=== PATIENT | female | born 1935 | race Caucasian/White ===

== ENCOUNTER 2016-12-11 16:12 | Inpatient (IN) | payer MEDICAID, MEDICARE ==
[2016-12-11 17:49] LABS: % BASOPHILS 0.6 % (0.0-2.0); % EOSINOPHILS 1.5 % (0.0-5.0); % LYMPHOCYTES 14.9 % (20.0-50.0); % MONOCYTES 9.5 % (2.0-10.0); % NEUTROPHILS 73.5 % (40.0-80.0); HEMATOCRIT 35.4 % (35.0-45.0); MEAN CELL VOLUME 91.6 fl (81-100); MEAN CORPUSCULAR HEMOGLOBIN 30.9 pg (27.0-31.0); MEAN CORPUSCULAR HGB CONC 33.8 pg (28.0-36.0); MEAN PLATELET VOLUME 6.9 fl; NEUTROPHILE ABSOLUTE 5.1 Th/cmm (1.8-8.0); PLATELET COUNT 288 Th/cmm (150-400); RED BLOOD COUNT 3.86 Mil/cmm (3.80-5.20); WHITE BLOOD COUNT 6.8 Th/cmm (4.8-10.8)
[2016-12-11 17:59] LABS: INR 1.03 (0.5-1.4); PROTHROMBIN TIME (TEST) 10.7 SECONDS (9.5-11.5)
[2016-12-11 18:05] LABS: ALKALINE PHOSPHATASE 118 U/L (34-104); ANION GAP 6.9 (7.0-16.0); BILIRUBIN,TOTAL 0.3 mg/dL (0.3-1.0); BUN - UREA NITROGEN 14 mg/dL (7-25); CALCIUM SERUM 8.8 mg/dL (8.6-10.3); CHLORIDE 104 mEq/L (98-107); CHOLESTEROL 109 mg/dL (<200); CREATININE - SERUM 0.4 mg/dL (0.6-1.2); GLUCOSE 102 mg/dL (70-105); POTASSIUM SERUM 3.9 mEq/L (3.5-5.1); SGOT 13 U/L (13-39); SGPT/ALT 9 U/L (7-52); SODIUM SERUM 133 mEq/L (136-145); TRIGLYCERIDES 80 mg/dL (<150)
[2016-12-11 18:17] LABS: URINE BILIRUBIN NEGATIVE (NEGATIVE); URINE BLOOD TRACE (NEGATIVE); URINE GLUCOSE (UA) NEGATIVE (NEGATIVE); URINE KETONE NEGATIVE (NEGATIVE); URINE PH 8.5 (4.6 - 8.0); URINE PROTEIN NEGATIVE (NEGATIVE); URINE UROBILINOGEN 0.2 E.U./dL (0.2 - 1.0)
[2016-12-11 18:21] LABS: URINE COLOR YELLOW
[2016-12-11 18:22] LABS: URINE BACTERIA 1+ /hpf (NONE SEEN); URINE EPITHELIAL CELLS FEW /lpf (FEW); URINE RBC 0-2 /hpf (0-5)
--- NOTE | 2016-12-11 18:39 | ED Physician Chart ---
Chief Complaint/HPI - Patient Information Date Seen:: 12/11/16 Time Seen:: 16:40 Chief Complaint:: INFECTED ROSEY CATH History of Present Illness:: THIS IS A THIN CHRONICALLY ILL 81 YO FECAL WITH CANCER WAS SENT HERE EVALUATION AND TREATMENT OF AN INFECTED PORTACATH. Allergies:: Allergies Allergy/AdvReac Type Severity Reaction Status Date / Time No Known Allergies Allergy Verified 12/11/16 17:46 Vitals:: Vital Signs - 8 hr 12/11/16 12/11/16 16:29 18:00 Temp 98.9 F HR 95 88 RR 21 16 BP 101/67 114/72 O2 Sat % 99 95 Historian:: Patient, Medical Records Review:: Nurse's Note Reviewed Review of Systems - Review of Systems General/Constitutional: No fever, No chills, No weight loss, No weakness, No diaphoresis, No edema, No loss of appetite Skin: Skin lesions (RIGHT CHEST WALL SKIN IN FECTION AROUND THE ROESY CATH), No rash, No bruising Head: No headache, No light-headedness Eyes: No loss of vision, No pain, No diplopia ENT: No earache, No nasal drainage, No sore throat, No tinnitus Neck: No neck pain, No swelling, No thyromegaly, No stiffness, No mass noted Cardio Vascular: No chest pain, No palpitations, No PND, No orthopnea, No edema Pulmonary: No SOB, No cough, No sputum, No wheezing GI: No nausea, No vomiting, No diarrhea, No pain, No melena, No hematochezia, No constipation, No hematemesis G/U: No dysuria, No frequency, No hematuria Musculoskeletal: No bone or joint pain, No back pain, No muscle pain Endocrine: No polyuria, No polydipsia Psychiatric: No prior psych history, No depression, No anxiety, No suicidal ideation Hematopoietic: No bruising, No lymphadenopathy Allergic/Immuno: No urticaria, No angioedema Neurological: No syncope, No focal symptoms, No weakness, No paresthesia, No headache, No seizure, No dizziness, No confusion, No vertigo Past Medical History - Past Medical History Obtainable: Yes Past Medical History: HTN, Arthritis, Other (CANCER OF THE RECTAL AREA) Family History: None Social History: Non Smoker, No Alcohol, No Drug Use Surgical History: None Family Medical History - Family Member mother History Unknown: Yes Physical Exam - Physical Examination General/Constitutional: Awake, Well-developed, well-nourished, Alert, No distress, GCS 15, Non-toxic appearing, Ambulatory Head: Atraumatic Eyes: Lids, conjuctiva normal, PERRL, EOMI Skin: No rash, No ecchymosis, Well hydrated, No lymphadenopathy Other Skin comments:: THERE IS PUS COMING OUT FROM AROUND THE PORTACATH SITE ON THE RIGHT SIDE OF THE CHEST WALL ENMT: External ears, nose nl, Nasal exam nl, Lips, teeth, gums nl Neck: Nontender, Full ROM w/o pain, No JVD, No nuchal rigidity, No bruit, No mass, No stridor Respiratory: Nl effort/Exclusion, Clear to Auscultation, No Wheeze/Rhonchi/Rales Cardio Vascular: RRR, No murmur, gallop, rubs, NL S1 S2 GI: No tenderness/rebounding/guarding, No organomegaly, No hernia, Normal BS's, Nondistended, No mass/bruits, No McBurney tenderness : No CVA tenderness Extremities: No tenderness or effusion, Full ROM, normal strength in all extremities, No edema, Normal digits & nails Neuro/Psych: Alert/oriented, DTR's symmetric, Normal sensory exam, Normal motor strength, Judgement/insight normal, Mood normal, Normal gait, No focal deficits Misc: normal gait, Normal back, No paraspinal tenderness Labs/Radiology/EKG Results - Lab Results Results: Laboratory Tests 12/11/16 12/11/16 12/11/16 17:37 17:37 17:37 WBC 6.8 RBC 3.86 Hgb 12.0 Hct 35.4 MCV 91.6 MCH 30.9 MCHC Differential 33.8 RDW 16.0 Plt Count 288 MPV 6.9 Neutrophils % 73.5 Lymphocytes % 14.9 L Monocytes % 9.5 Eosinophils % 1.5 Basophils % 0.6 PT 10.7 INR 1.03 PTT (Actin FS) 28.3 Sodium Potassium Chloride Carbon Dioxide Anion Gap BUN Creatinine Est GFR ( Amer) Est GFR (Non-Af Amer) BUN/Creatinine Ratio Glucose Calcium Total Bilirubin AST ALT Alkaline Phosphatase Troponin I Total Protein Albumin Globulin Albumin/Globulin Ratio Triglycerides 80 Cholesterol 109 LDL Cholesterol Direct 42 L HDL Cholesterol 55 Urine Source Urine Color Urine Clarity Urine pH Ur Specific [place] Urine Protein Urine Glucose (UA) Urine Ketones Urine Blood Urine Nitrate Urine Bilirubin Urine Urobilinogen Ur Leukocyte Esterase Urine RBC Urine WBC Ur Epithelial Cells Urine Bacteria 12/11/16 12/11/16 12/11/16 17:37 17:37 18:05 WBC RBC Hgb Hct MCV MCH MCHC Differential RDW Plt Count MPV Neutrophils % Lymphocytes % Monocytes % Eosinophils % Basophils % PT INR PTT (Actin FS) Sodium 133 L Potassium 3.9 Chloride 104 Carbon Dioxide 26.0 Anion Gap 6.9 L BUN 14 Creatinine 0.4 L Est GFR ( Amer) TNP Est GFR (Non-Af Amer) TNP BUN/Creatinine Ratio 35.0 Glucose 102 Calcium 8.8 Total Bilirubin 0.3 AST 13 ALT 9 Alkaline Phosphatase 118 H Troponin I < 0.01 L Total Protein 5.1 L Albumin 2.6 L Globulin 2.5 Albumin/Globulin Ratio 1.0 Triglycerides Cholesterol LDL Cholesterol Direct HDL Cholesterol Urine Source CLEAN C Urine Color YELLOW Urine Clarity SLIGHT CLOUDY Urine pH 8.5 Ur Specific [place] 1.015 Urine Protein NEGATIVE Urine Glucose (UA) NEGATIVE Urine Ketones NEGATIVE Urine Blood TRACE Urine Nitrate NEGATIVE Urine Bilirubin NEGATIVE Urine Urobilinogen 0.2 Ur Leukocyte Esterase LARGE H Urine RBC 0-2 Urine WBC 10-25 H Ur Epithelial Cells FEW Urine Bacteria 1+ H Assessment - Assessment General Assessment: INFECTED ROSEY CATH URINARY TRACT INFECTION ED Septic Shock - . Is Septic Shock (SBP<90, OR Lactate>4 mmol\L) present?: No - <6hrs of presentation: Vital Signs: Vital Signs - 8 hr 12/11/16 12/11/16 16:29 18:00 Temp 98.9 F HR 95 88 RR 21 16 BP 101/67 114/72 O2 Sat % 99 95 Reassessment (Disposition) - Diagnosis Diagnosis:: INFECTION OF PORTACATH URINARY TRACT INFECTION CANCER OF THE RECTUM - Patient Disposition Discharge/Transfer:: Acute Care w/in this hosp Admitting Medical Physician:: Suzie Choudhury Condition at Disposition:: Stable ED Discharge Plan - Patient Disposition Admit/Discharge/Transfer: Home Health IV Service Condition at Disposition: Improved
[2016-12-11] MEDS ORDERED: Non-Formulary Item 1 EA (Amino Acids/Protein Hydrolys [Pro-Stat Sugar Free Liquid] 30 ML) PO SCH (21:43)
[2016-12-11] MEDS ORDERED: Piperacillin Sodium/Tazobact 3.375 gm Vial IV ONE (22:40)
[2016-12-12] MEDS ORDERED: Piperacillin Sodium/Tazobact 3.375 gm Vial IV ONE (05:14)
--- NOTE | 2016-12-12 08:15 | Diagnostic Imaging Report ---
CHEST X-RAY: AP view INDICATION: Shortness of breath COMPARISON: None FINDINGS: Right-sided Port-A-Cath is seen with tip in the SVC. Chronic lung changes are seen with no focal consolidation or effusions. Heart size normal. Atherosclerosis is noted. Degenerative changes of spine are noted with scoliosis. Osteopenia is noted. IMPRESSION: Chronic lung changes with no focal consolidation identified. Atherosclerotic vascular disease. Right Port-A-Cath with tip in SVC.
[2016-12-12] MEDS: Calcium Carb/Vit D 500 mg/200 U Tab PO SCH (09:03)
[2016-12-12] MEDS: Multivitamin w/ Minerals Tab PO SCH (09:03)
[2016-12-12] MEDS ORDERED: VTE Chemical Prophylaxis Screen/Admission MC PRN (14:10)
--- NOTE | 2016-12-12 15:44 | History & Physical ---
ADMIT DATE: 12/12/2016 HISTORY OF PRESENT ILLNESS: This is an 81-year-old female who is a resident of [facility] who is brought here to [facility] for infected Port-A-Cath. The patient did not have any fevers at the [facility]. For this reason, the patient is now here at the Med/Surg unit. PAST MEDICAL HISTORY: Malignant neoplasm of rectum, colostomy status, hypertension, arthritis. FAMILY HISTORY: Noncontributory. SOCIAL HISTORY: The patient is a [facility] resident, requiring 24-hour nursing care. PAST SURGICAL HISTORY: Colostomy. REVIEW OF SYSTEMS: GENERAL: Denies any fevers or chills. CARDIOVASCULAR: Denies any chest pain. RESPIRATORY: Denies any shortness of breath. GASTROINTESTINAL: Denies nausea, vomiting. GENITOURINARY: Denies any dysuria. All other systems are reviewed by me and are negative. PHYSICAL EXAMINATION: GENERAL: This is an elderly female, awake and alert, no apparent distress. VITAL SIGNS: Temperature 96.8, heart rate 88, blood pressure of 89/63, respiration 18, O2 99%. HEENT: Head; normocephalic, atraumatic. NECK: Supple. No mass. LUNGS: Clear bilaterally. HEART: Regular rhythm. ABDOMEN: Soft, nontender. LABORATORY DATA: WBC 6.8, H and H 12.0 and 35.4, platelet of 288. Sodium 133, potassium 3.9, chloride 104, BUN 14, creatinine 0.4. Troponin 0.01. Albumin 2.6. The patient had a urinalysis done, positive for UTI. DIAGNOSTICS: The patient had a chest x-ray done and the impression is chronic lung changes with no focal consolidation identified, atherosclerotic vascular disease, ____ Port-A-Cath with tip in SVC. ASSESSMENT: 1. Infected Port-A-Cath. 2. Severe malnutrition. 3. Hyponatremia. 4. History of hypertension. 5. History of cancer of the rectum. PLAN: The patient to be admitted to the med/surg unit. The patient will consult with Infectious Disease and will get a.m. labs. We will start the patient on empiric IV antibiotics. We will start patient on IV fluids for hydration. Discuss plan of care with Dr. Cohudhury. JOB# [id number]
--- NOTE | 2016-12-12 16:26 | General Progress Note ---
Subjective - Review of Systems Service Date: 12/12/16 Events since last encounter: consult dictated leaking portacath - likely infected Plan: remove old, insert new one Objective - Results Result Diagrams: 12/11/16 17:37 12/11/16 17:37 Recent Labs: Laboratory Last Values WBC 6.8 Th/cmm (4.8-10.8) 12/11/16 17:37 RBC 3.86 Mil/cmm (3.80-5.20) 12/11/16 17:37 Hgb 12.0 gm/dL (11.7-16.1) 12/11/16 17:37 Hct 35.4 % (35.0-45.0) 12/11/16 17:37 MCV 91.6 fl (81-100) 12/11/16 17:37 MCH 30.9 pg (27.0-31.0) 12/11/16 17:37 MCHC Differential 33.8 pg (28.0-36.0) 12/11/16 17:37 RDW 16.0 % (11.5-20.0) 12/11/16 17:37 Plt Count 288 Th/cmm (150-400) 12/11/16 17:37 MPV 6.9 fl 12/11/16 17:37 Neutrophils % 73.5 % (40.0-80.0) 12/11/16 17:37 Lymphocytes % 14.9 % (20.0-50.0) L 12/11/16 17:37 Monocytes % 9.5 % (2.0-10.0) 12/11/16 17:37 Eosinophils % 1.5 % (0.0-5.0) 12/11/16 17:37 Basophils % 0.6 % (0.0-2.0) 12/11/16 17:37 PT 10.7 SECONDS (9.5-11.5) 12/11/16 17:37 INR 1.03 (0.5-1.4) 12/11/16 17:37 PTT (Actin FS) 28.3 SECONDS (26.0-38.0) 12/11/16 17:37 Sodium 133 mEq/L (136-145) L 12/11/16 17:37 Potassium 3.9 mEq/L (3.5-5.1) 12/11/16 17:37 Chloride 104 mEq/L (98-107) 12/11/16 17:37 Carbon Dioxide 26.0 mEq/L (21.0-31.0) 12/11/16 17:37 Anion Gap 6.9 (7.0-16.0) L 12/11/16 17:37 BUN 14 mg/dL (7-25) 12/11/16 17:37 Creatinine 0.4 mg/dL (0.6-1.2) L 12/11/16 17:37 Est GFR ( Amer) TNP 12/11/16 17:37 Est GFR (Non-Af Amer) TNP 12/11/16 17:37 BUN/Creatinine Ratio 35.0 12/11/16 17:37 Glucose 102 mg/dL (70-105) 12/11/16 17:37 Calcium 8.8 mg/dL (8.6-10.3) 12/11/16 17:37 Total Bilirubin 0.3 mg/dL (0.3-1.0) 12/11/16 17:37 AST 13 U/L (13-39) 12/11/16 17:37 ALT 9 U/L (7-52) 12/11/16 17:37 Alkaline Phosphatase 118 U/L (34-104) H 12/11/16 17:37 Troponin I < 0.01 ng/mL (0.01-0.05) L 12/11/16 17:37 Total Protein 5.1 gm/dL (6.0-8.3) L 12/11/16 17:37 Albumin 2.6 gm/dL (3.7-5.3) L 12/11/16 17:37 Globulin 2.5 gm/dL 12/11/16 17:37 Albumin/Globulin Ratio 1.0 (1.0-1.8) 12/11/16 17:37 Triglycerides 80 mg/dL (<150) 12/11/16 17:37 Cholesterol 109 mg/dL (<200) 12/11/16 17:37 LDL Cholesterol Direct 42 mg/dL (75-193) L 12/11/16 17:37 HDL Cholesterol 55 mg/dL (23-92) 12/11/16 17:37 TSH 3.11 uIU/ml (0.34-5.60) 12/11/16 17:37 Urine Source CLEAN C 12/11/16 18:05 Urine Color YELLOW 12/11/16 18:05 Urine Clarity SLIGHT CLOUDY (CLEAR) 12/11/16 18:05 Urine pH 8.5 (4.6 - 8.0) 12/11/16 18:05 Ur Specific [place] 1.015 (1.005-1.030) 12/11/16 18:05 Urine Protein NEGATIVE mg/dL (NEGATIVE) 12/11/16 18:05 Urine Glucose (UA) NEGATIVE mg/dL (NEGATIVE) 12/11/16 18:05 Urine Ketones NEGATIVE mg/dL (NEGATIVE) 12/11/16 18:05 Urine Blood TRACE (NEGATIVE) 12/11/16 18:05 Urine Nitrate NEGATIVE (NEGATIVE) 12/11/16 18:05 Urine Bilirubin NEGATIVE (NEGATIVE) 12/11/16 18:05 Urine Urobilinogen 0.2 E.U./dL (0.2 - 1.0) 12/11/16 18:05 Ur Leukocyte Esterase LARGE (NEGATIVE) H 12/11/16 18:05 Urine RBC 0-2 /hpf (0-5) 12/11/16 18:05 Urine WBC 10-25 /hpf (0-5) H 12/11/16 18:05 Ur Epithelial Cells FEW /lpf (FEW) 12/11/16 18:05 Urine Bacteria 1+ /hpf (NONE SEEN) H 12/11/16 18:05 RPR NONREACTIVE (NONREACTIVE) 12/11/16 17:37 - Physical Exam Vitals and I&O: Vital Signs Temp 97.2 F 12/12/16 16:20 Pulse 87 12/12/16 16:20 Resp 17 12/12/16 16:20 BP 96/54 12/12/16 16:20 Pulse Ox 98 12/12/16 16:20 Intake & Output 12/11/16 12/12/16 12/12/16 18:59 06:59 18:59 Intake Total 300 50 Output Total 50 Balance 250 50 Weight (lbs) 44.815 kg Intake: Intake, IV Amount 300 50 Piperacillin Sodium/ 50 50 Tazobact 3.375 gm In Sodium Chloride 0.9% 50 ml @ 100 mls/hr IV Q8H [facility] Rx#:[id number] Output: Stool 50 Other: # Voids 3 Stool Characteristics Liquid Active Medications: Current Medications Al Hydrox/Mg Hydrox/Simethicone (Maalox) 30 ml PO Q6HR PRN PRN Reason: Upset Stomach / Indigestion Ascorbic Acid (Vitamin C) 500 mg PO BID URSULA Stop: 02/10/17 08:59 Last Admin: 12/12/16 09:03 Dose: 500 mg Calcium/Vitamin D (Oscal W/Vitamin D) 1 tab PO DAILY URSULA Stop: 02/10/17 08:59 Last Admin: 12/12/16 09:03 Dose: 1 tab Heparin Sodium (Porcine) (Heparin) 5,000 units SUBQ Q12HR URSULA Stop: 02/10/17 20:59 Piperacillin Sod/Tazobactam (Sod 3.375 gm/ Sodium Chloride) 50 mls @ 100 mls/ hr IV Q8H URSULA Stop: 02/09/17 21:42 Last Admin: 12/12/16 13:48 Dose: 100 mls/hr Vancomycin HCl 1.25 gm/ Sodium (Chloride) 250 mls @ 165 mls/hr IV Q24H URSULA Stop: 02/10/17 20:59 Dextrose/Sodium Chloride (D5-0.9%Ns) 1,000 mls @ 100 mls/hr IV .Q10H URSULA Stop: 02/10/17 14:49 Megestrol Acetate (Megace) 400 mg PO DAILY URSULA Stop: 02/10/17 08:59 Last Admin: 12/12/16 09:06 Dose: Not Given Miscellaneous (Vancomycin Iv Per Pharmacy) 1 [facility] PRN PRN PRN Reason: PROTOCOL Stop: 02/09/17 21:42 Miscellaneous (Amino Acids/Protein Hydrolys [Pro-Stat Sugar Free Liquid]) 30 ml PO TID URSULA Stop: 02/09/17 21:42 Miscellaneous (Ferrous Gluconate [Ferrous Gluconate]) 324 mg PO BID URSULA Stop: 02/10/17 08:59 Miscellaneous (Vte Chemical Prophylaxis Screen/ Admission) 1 [facility] PRN PRN PRN Reason: PROTOCOL Stop: 02/10/17 14:09 Prochlorperazine Maleate (Compazine) 10 mg PO Q6H PRN; Protocol PRN Reason: NAUSEA/VOMITING Stop: 02/09/17 21:42 Assessment/Plan - Problem List Patient Problems: All Active Problems RED AND SWOLLEN PORT-O-CATH SITE (Acute)
[2016-12-12] MEDS: D5-0.9%NS 1,000 ML IV SCH (16:33)
--- NOTE | 2016-12-12 17:09 | Consultation ---
DATE OF CONSULTATION: 12/12/2016 REFERRING PHYSICIAN: Dr. Choudhury. REASON FOR CONSULTATION: Leaking right chest Port-A-Cath. Thank you for referring this patient to me. HISTORY OF PRESENT ILLNESS: This is an 81-year-old female admitted for draining right Port-A-Cath for the last 1 week. She claims in that time it had started to drain requiring daily changes. She denies any fever. PASTHISTORY: She claims she has had colon resection about 8 months ago and has had chemotherapy. She claims that she needs more chemotherapy and therefore a new one to replace the leaking one on the right chest. LABORATORY STUDIES: Show CBC to be normal. Chemistry is also normal. PHYSICAL EXAMINATION: The patient is asthenic. Colostomy in the left lower quadrant. There is a wet Port-A-Cath reservoir on the right chest with catheter leading into the right internal ventricular vein. It is moderately tender. IMPRESSION: Infected Port-A-Cath reservoir. RECOMMENDATION: Give IV antibiotics, remove the old and place a new one. JOB# [id number]
[2016-12-13] MEDS: D5-0.9%NS 1,000 ML IV SCH ×2 (04:48→20:55)
[2016-12-13 05:07] LABS: % BASOPHILS 0.8 % (0.0-2.0); % LYMPHOCYTES 14.6 % (20.0-50.0); % MONOCYTES 8.7 % (2.0-10.0); % NEUTROPHILS 71.9 % (40.0-80.0); HEMATOCRIT 32.7 % (35.0-45.0); HEMOGLOBIN 11.1 gm/dL (11.7-16.1); MEAN CELL VOLUME 91.7 fl (81-100); MEAN CORPUSCULAR HEMOGLOBIN 31.1 pg (27.0-31.0); MEAN CORPUSCULAR HGB CONC 33.9 pg (28.0-36.0); MEAN PLATELET VOLUME 7.1 fl; NEUTROPHILE ABSOLUTE 4.6 Th/cmm (1.8-8.0); PLATELET COUNT 280 Th/cmm (150-400); RED BLOOD COUNT 3.56 Mil/cmm (3.80-5.20); RED CELL DISTRIBUTION WIDTH 15.7 % (11.5-20.0); WHITE BLOOD COUNT 6.6 Th/cmm (4.8-10.8)
[2016-12-13 05:32] LABS: ANION GAP 8.9 (7.0-16.0); BUN - UREA NITROGEN 13 mg/dL (7-25); BUN/CREATININE RATIO 32.5; CALCIUM SERUM 8.5 mg/dL (8.6-10.3); CARBON DIOXIDE 23.2 mEq/L (21.0-31.0); CHLORIDE 108 mEq/L (98-107); CREATININE - SERUM 0.4 mg/dL (0.6-1.2); GLUCOSE 83 mg/dL (70-105); POTASSIUM SERUM 4.1 mEq/L (3.5-5.1); SODIUM SERUM 136 mEq/L (136-145)
[2016-12-13] MEDS: Ferrous Sulfate 325 MG TAB PO SCH ×2 (09:52→16:58)
[2016-12-13] MEDS: Calcium Carb/Vit D 500 mg/200 U Tab PO SCH (09:52)
[2016-12-13] MEDS: Multivitamin w/ Minerals Tab PO SCH (09:53)
--- NOTE | 2016-12-13 09:54 | Diagnostic Imaging Report ---
Portable chest x-ray HISTORY: Shortness of breath The overall heart size is normal. There is accentuation of the interstitial lung markings. However, no focal processes are seen. A vascular catheter tip is in the region of the superior vena cava. Scoliosis and degenerative changes seen within the spine. IMPRESSION: 1. No acute focal pulmonary processes
[2016-12-13] MEDS: Maalox 30 mL Cup PO PRN (19:01)
--- NOTE | 2016-12-14 00:51 | Consultation ---
DATE OF CONSULTATION: 12/12/2016 PRIMARY CARE PHYSICIAN: Dr. Choudhury. REASON FOR CONSULTATION: Infected PermCath. HISTORY OF PRESENT ILLNESS: This is an 81-year-old female who was found to have rash around the Port-A-Cath, and the patient was brought to the Emergency Room where the patient was evaluated and admitted to the hospital. A consultation with Dr. Pool, Vascular, and Infectious consultation was called. The patient was started on antibiotics. PAST MEDICAL HISTORY: Hypertension. The patient denies any systemic symptoms. Past medical history of osteoarthritis, colorectal cancer, status post colostomy, dysphagia. SOCIAL HISTORY: Nonsmoker. FAMILY HISTORY: Negative. ALLERGIES: None. REVIEW OF SYSTEMS: A 14-point review of system negative except above. PHYSICAL EXAMINATION: EXTREMITIES: The patient has infected Port-A-Cath on the right chest with pus and discharge from the site of the catheter suggestive of ongoing infection. VITAL SIGNS: Stable. HEENT: Mild pallor, no icterus or plaque. NECK: Supple. LUNGS: Breath sounds bilateral vesicular. CARDIOVASCULAR: S1, S2. ABDOMEN: Soft. Bowel sounds present. LABORATORY DATA: Blood culture negative so far. White count is 6000, hemoglobin is 12 g, platelets 288. Chest x-ray shows changes, right Port-A-Cath with tip in SVC. DIAGNOSES: Infected Port-A-Cath, needs removal, Dr. Pool consulted. Meanwhile empirically started on vancomycin and Zosyn, supportive care, continue with Megace for appetite stimulation. Calcium, vitamin D for osteopenia. Rest of the care as ordered in [facility]PO[facility]. Thank you Dr. Choudhury for this consultation. JOB# [id number]
--- NOTE | 2016-12-14 04:29 | Admit Criteria Form ---
Admit Criteria Forms - Admit Criteria Diagnosis: URINARY COMPLICATIONS Clinical Indications for Inpatient Care (Place 'X' for any and all applicable criteria): Ongoing inpatient care may be indicated for urinary complications with ANY ONE of the following: [X ]I. Urinary tract infection requiring inpatient care as indicated by ANY ONE of the following(8)(19)(20): [ ]a) Severe symptoms (eg, high fever, severe pain) [ ]b) Vomiting or dehydration requiring ongoing inpatient care [X ]c) IV antibiotic needs that cannot be managed at lower level of care [ ]d) Hemodynamic instability [ ]e) Obstruction of collecting system by stone or tumor [ ]II. Urinary retention requiring drainage or surgery (3)(4)(5)(17)(18) [ ]III. Renal failure (Use Renal Failure Criteria for further information.) [ ]IV. Oliguria(30) [ ]V. Post obstructive diuresis requiring close monitoring of urine output and intravenous compensation for excessive fluid losses(33) Extended stay beyond goal length of stay for primary condition may be needed until ALL of the following are present(3)(4)(5)(8): [ ]a) Renal function (creatinine) at baseline, or daily decreases in creatinine consistent with renal function return [ ]b) Voiding adequately or with urinary catheter or percutaneous suprapubic tube and management regimen in place that is performable at lower level of care. [ ]c) Urine output adequate [ ]d) Fever absent or resolving [ ]e) Infection absent or treatable at next level of care The original [email or web address] content created by [email or web address] has been revised. The portions of the content which have been revised are identified through the use of italic text or in bold, and [facility] has neither reviewed nor approved the modified material. All other unmodified content is copyright [employer] [facility] Please see references footnoted in the original [facility] [employer] edition 2016 Admit Criteria Met?: Yes
[2016-12-14] MEDS ORDERED: Dextrose 50% 50 mL Abboject IVP ONE ×2 (06:53→06:59)
[2016-12-14] MEDS ORDERED: Midazolam 1mg/ml 2 ml vial IV ONE (07:57)
--- NOTE | 2016-12-14 08:10 | General Progress Note ---
Subjective - Review of Systems Events since last encounter: patient awake , no distress on antibiotics Objective - Results Result Diagrams: 12/13/16 04:50 12/13/16 04:50 Recent Labs: Laboratory Last Values WBC 6.6 Th/cmm (4.8-10.8) 12/13/16 04:50 RBC 3.56 Mil/cmm (3.80-5.20) L 12/13/16 04:50 Hgb 11.1 gm/dL (11.7-16.1) L 12/13/16 04:50 Hct 32.7 % (35.0-45.0) L 12/13/16 04:50 MCV 91.7 fl (81-100) 12/13/16 04:50 MCH 31.1 pg (27.0-31.0) H 12/13/16 04:50 MCHC Differential 33.9 pg (28.0-36.0) 12/13/16 04:50 RDW 15.7 % (11.5-20.0) 12/13/16 04:50 Plt Count 280 Th/cmm (150-400) 12/13/16 04:50 MPV 7.1 fl 12/13/16 04:50 Neutrophils % 71.9 % (40.0-80.0) 12/13/16 04:50 Lymphocytes % 14.6 % (20.0-50.0) L 12/13/16 04:50 Monocytes % 8.7 % (2.0-10.0) 12/13/16 04:50 Eosinophils % 4.0 % (0.0-5.0) 12/13/16 04:50 Basophils % 0.8 % (0.0-2.0) 12/13/16 04:50 PT 10.7 SECONDS (9.5-11.5) 12/11/16 17:37 INR 1.03 (0.5-1.4) 12/11/16 17:37 PTT (Actin FS) 28.3 SECONDS (26.0-38.0) 12/11/16 17:37 Sodium 136 mEq/L (136-145) 12/13/16 04:50 Potassium 4.1 mEq/L (3.5-5.1) 12/13/16 04:50 Chloride 108 mEq/L (98-107) H 12/13/16 04:50 Carbon Dioxide 23.2 mEq/L (21.0-31.0) 12/13/16 04:50 Anion Gap 8.9 (7.0-16.0) 12/13/16 04:50 BUN 13 mg/dL (7-25) 12/13/16 04:50 Creatinine 0.4 mg/dL (0.6-1.2) L 12/13/16 04:50 Est GFR ( Amer) TNP 12/13/16 04:50 Est GFR (Non-Af Amer) TNP 12/13/16 04:50 BUN/Creatinine Ratio 32.5 12/13/16 04:50 Glucose 83 mg/dL (70-105) 12/13/16 04:50 POC Glucose 102 MG/DL (70 - 105) 12/14/16 07:13 Calcium 8.5 mg/dL (8.6-10.3) L 12/13/16 04:50 Total Bilirubin 0.3 mg/dL (0.3-1.0) 12/11/16 17:37 AST 13 U/L (13-39) 12/11/16 17:37 ALT 9 U/L (7-52) 12/11/16 17:37 Alkaline Phosphatase 118 U/L (34-104) H 12/11/16 17:37 Troponin I < 0.01 ng/mL (0.01-0.05) L 12/11/16 17:37 Total Protein 5.1 gm/dL (6.0-8.3) L 12/11/16 17:37 Albumin 2.6 gm/dL (3.7-5.3) L 12/11/16 17:37 Globulin 2.5 gm/dL 12/11/16 17:37 Albumin/Globulin Ratio 1.0 (1.0-1.8) 12/11/16 17:37 Triglycerides 80 mg/dL (<150) 12/11/16 17:37 Cholesterol 109 mg/dL (<200) 12/11/16 17:37 LDL Cholesterol Direct 42 mg/dL (75-193) L 12/11/16 17:37 HDL Cholesterol 55 mg/dL (23-92) 12/11/16 17:37 TSH 3.11 uIU/ml (0.34-5.60) 12/11/16 17:37 Urine Source CLEAN C 12/11/16 18:05 Urine Color YELLOW 12/11/16 18:05 Urine Clarity SLIGHT CLOUDY (CLEAR) 12/11/16 18:05 Urine pH 8.5 (4.6 - 8.0) 12/11/16 18:05 Ur Specific [place] 1.015 (1.005-1.030) 12/11/16 18:05 Urine Protein NEGATIVE mg/dL (NEGATIVE) 12/11/16 18:05 Urine Glucose (UA) NEGATIVE mg/dL (NEGATIVE) 12/11/16 18:05 Urine Ketones NEGATIVE mg/dL (NEGATIVE) 12/11/16 18:05 Urine Blood TRACE (NEGATIVE) 12/11/16 18:05 Urine Nitrate NEGATIVE (NEGATIVE) 12/11/16 18:05 Urine Bilirubin NEGATIVE (NEGATIVE) 12/11/16 18:05 Urine Urobilinogen 0.2 E.U./dL (0.2 - 1.0) 12/11/16 18:05 Ur Leukocyte Esterase LARGE (NEGATIVE) H 12/11/16 18:05 Urine RBC 0-2 /hpf (0-5) 12/11/16 18:05 Urine WBC 10-25 /hpf (0-5) H 12/11/16 18:05 Ur Epithelial Cells FEW /lpf (FEW) 12/11/16 18:05 Urine Bacteria 1+ /hpf (NONE SEEN) H 12/11/16 18:05 RPR NONREACTIVE (NONREACTIVE) 12/11/16 17:37 - Physical Exam Vitals and I&O: Vital Signs Temp 96.2 F 12/14/16 06:22 Pulse 78 12/14/16 06:22 Resp 18 12/14/16 06:22 BP 112/71 12/14/16 06:22 Pulse Ox 97 12/14/16 06:22 Intake & Output 12/13/16 12/14/16 12/14/16 18:59 06:59 18:59 Intake Total 1050 1420 Balance 1050 1420 Weight (lbs) 43.998 kg Intake: Intake, IV Amount 1050 100 D5-0.9%Ns 1,000 ml @ 100 1000 mls/hr IV .Q10H [facility] Rx#: [id number] Piperacillin Sodium/ 50 100 Tazobact 3.375 gm In Sodium Chloride 0.9% 50 ml @ 100 mls/hr IV Q8H [facility] Rx#:[id number] Oral 1320 Other: # Voids 3 # Bowel Movements 2 Stool Characteristics Soft Liquid Active Medications: Current Medications Al Hydrox/Mg Hydrox/Simethicone (Maalox) 30 ml PO Q6HR PRN PRN Reason: Upset Stomach / Indigestion Last Admin: 12/13/16 19:01 Dose: 30 ml Ascorbic Acid (Vitamin C) 500 mg PO BID URSULA Stop: 02/10/17 08:59 Last Admin: 12/13/16 16:58 Dose: 500 mg Calcium/Vitamin D (Oscal W/Vitamin D) 1 tab PO DAILY URSULA Stop: 02/10/17 08:59 Last Admin: 12/13/16 09:52 Dose: Not Given Ferrous Sulfate (Iron) 325 mg PO BID URSULA Stop: 02/10/17 08:59 Last Admin: 12/13/16 16:58 Dose: 325 mg Heparin Sodium (Porcine) (Heparin) 5,000 units SUBQ Q12HR URSULA Stop: 02/10/17 20:59 Last Admin: 12/13/16 20:56 Dose: Not Given Piperacillin Sod/Tazobactam (Sod 3.375 gm/ Sodium Chloride) 50 mls @ 100 mls/ hr IV Q8H URSULA Stop: 02/09/17 21:42 Last Infusion: 12/14/16 05:45 Dose: Infused Dextrose/Sodium Chloride (D5-0.9%Ns) 1,000 mls @ 100 mls/hr IV .Q10H URSULA Stop: 02/10/17 14:49 Last Admin: 12/13/16 20:55 Dose: 100 mls/hr Vancomycin HCl 1.25 gm/ Sodium (Chloride) 250 mls @ 165 mls/hr IV Q24H URSULA Stop: 02/11/17 14:59 Last Admin: 12/13/16 15:32 Dose: 165 mls/hr Megestrol Acetate (Megace) 400 mg PO DAILY URSULA Stop: 02/10/17 08:59 Last Admin: 12/13/16 09:53 Dose: Not Given Miscellaneous (Vancomycin Iv Per Pharmacy) 1 ea PRN PRN PRN Reason: PROTOCOL Stop: 02/09/17 21:42 Miscellaneous (Vte Chemical Prophylaxis Screen/ Admission) 1 ea PRN PRN PRN Reason: PROTOCOL Stop: 02/10/17 14:09 Prochlorperazine Maleate (Compazine) 10 mg PO Q6H PRN; Protocol PRN Reason: NAUSEA/VOMITING Stop: 02/09/17 21:42 Wound Care/Dressing Products (Therahoney) 1 appl TP DAILY URSULA Stop: 02/12/17 08:59 General: No acute distress HEENT: Atraumatic Cardiovascular: Regular rate, Normal S1, Normal S2 Assessment/Plan - Problem List Patient Problems: All Active Problems RED AND SWOLLEN PORT-O-CATH SITE (Acute) - Plan Plan: monitor vitals diet labs f/up consultants Nutritional Asmnt/Malnutr-PDOC - Dietary Evaluation Malnutrition Findings (Please click <Entered> for more info): Nutritional Asmnt/Malnutrition Start: 12/12/16 18: 08 Text: Status: Complete Freq: Document 12/13/16 18:04 [facility] (Rec: 12/13/16 18:16 [facility] [id number]) Nutritional Asmnt/Malnutrition Patient General Information Nutritional Screening High Risk Screening Diagnosis Infected Port-A-Cath, severe malnutrition, hyponatremia Pertinent Medical Hx/Surgical Hx Malignant neoplasm of rectum, colostomy status, HTN, arthritis Subjective Information Pt is a 81-year-old female from [facility] admitted with chief complaint of an infected Port-A-Cath. Pt is awake and oriented and able to provide hx. Pt reports having a good appetite prior to admit but she has early satiety. Pt is unable to complete the meals provided. Pt normally eats 1-2 meals a day and drinks Boost supplements. Food preferences noted. Severe protein and fat wasting noted to face, chest, and biceps. Pt reports weighing 150# several years ago. Pt is completely edentulous and aware of pureed diet restrictions; pt had no questions. Current Diet Order/ Nutrition Support Preed Patient / S.O Can Pertinent Medications Vitamin C, Oscal with Vitamin D, D5-0.9 NS, Iron, Megace, Piperacillin Sodium, Vancomycin Pertinent Labs (12/11) LDL Cholesterol 42L Nutritional Hx/Data Height 1.75 m Height (Calculated Centimeters) 175.3 Current Weight (lbs) 44.815 kg Weight (Calculated Kilograms) 44.8 Weight (Calculated Grams) 16108.9 Usual body Weight (lbs) 150 % Usual Body Weight 66 [place] Body Weight 115 % [place] Body Weight 86 Recent Weight Change Yes Weight Status Underweight GI Symptoms GI Symptoms None Difficult in: Chewing Food Allergies No Cultural/Ethnic/Anglican Belief No cultural or mosque beliefs noted. Food preferences noted. At [facility], Pt received an fortified cereal, extra egg at breakfast, fortified mashed potato, red jello at lunch and dinner, extra protein at lunch, lactose free milk TID, healthshake at 1000, and sherbet BID between meals. [place] would be available per pt's request. Usual diet at home Pureed, ProStat 30 ml TID Skin Integrity/Comment: Pete 16. Pressure wound to coccyx, per RN notes. Current %PO Poor (25-49%) Estimated Nutritional Goals BEE in Kcals: Adj wt of IBW Calories/Kcals/Kg Based on IBW 52.3 kg with consideration of malnutrition Kcals Calculated 4275-1364 kcals/day (30-35 kcals/kg) Protein: Adj wt of IBW Protein g/kg: Based on IBW 52.3 kg with consideration of malnutrition Protein Calculated 63-78 gm/day (1.2-1.5 gm/kg) Fluid: ml 1151-8042 ml/day (1 ml/kcal) Nutritional Problem 1. 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 Malnutrition Alert Body Fat Depletion (Severe) Mod to Severe Depletion Muscle Mass (Severe) Mod to Severe Depletion Protein-Calorie Malnutrition Severe Is there a minimum of two criteria Yes selected? Query Text:Check all the applicable criteria. A minimum of two criteria are recommended for diagnosis of either severe or non-severe malnutrition. Malnutrition Related to Morbid Obesity Malnutrition related to morbid obesity No Intervention/Recommendation Recommendations by RD Protein supplementation Comments 1. Continue with puree diet. Pt is able to work with [facility] for menu selections. [place] food preferences. 2. Recommend Boost supplement between meals at 1000, 1500, and 2000 to promote nutritional intake. Pt is agreeable to plan. Expected Outcomes/Goals Expected Outcomes/Goals Have pt meet at least 75% of estimated nutritional needs. Physician Parameters for PEM Normal Weight % 75% - 85% (Moderate) Body Mass Index (BMI) 16 - 17.9 (Moderate) Serum Albumin (g/dl) 2.4 - 3.0 (Moderate)
[2016-12-14] MEDS ORDERED: Meperidine 25 mg/mL 1mL Syr IVP PRN (08:50)
[2016-12-14] MEDS ORDERED: Lactated Ringer 1,000 ML IV SCH (09:00)
--- NOTE | 2016-12-14 09:12 | Diagnostic Imaging Report ---
Portable chest x-ray HISTORY: Shortness of breath, vascular catheter placement Compared to prior exam of December 13, 2016, a right-sided vascular catheter has been removed. The left transit clavian vascular catheter is been inserted. The tip is in the region of the superior vena cava. There is accentuation of the interstitial lung markings. However, no acute focal processes are seen. No pneumothorax. The heart size is normal. Atherosclerotic calcification seen within the aorta. IMPRESSION: 1. New vascular catheter placement as noted above 2. No change in the pulmonary status
[2016-12-14] MEDS: Ferrous Sulfate 325 MG TAB PO SCH ×2 (09:31→19:14)
[2016-12-14] MEDS: Calcium Carb/Vit D 500 mg/200 U Tab PO SCH (09:31)
[2016-12-14] MEDS: Multivitamin w/ Minerals Tab PO SCH (09:32)
--- NOTE | 2016-12-14 11:19 | Operative Report ---
DATE OF SURGERY: 12/14/2016 PREOPERATIVE DIAGNOSES: 1. Carcinoma of the colon, post resection, on chemotherapy. 2. Hypertension. 3. Malnutrition. POSTOPERATIVE DIAGNOSES: 1. Carcinoma of the colon, post resection, on chemotherapy. 2. Hypertension. 3. Malnutrition. OPERATION DONE: 1. Incision of Port-A-Cath left subclavian vein under ultrasound and fluoroscopy. 2. Removal of infected Port-A-Cath right internal jugular vein. SURGEON: Ivelisse Pool M.D. ANESTHESIA: MAC. ANESTHESIOLOGIST: Dylan Aquino M.D. ESTIMATED BLOOD LOSS: 1 mL. DESCRIPTION OF PROCEDURE: The patient was given IV sedation. The chest was prepped with Betadine and draped in appropriate manner. Then, 1% lidocaine was used to infiltrate the left infraclavicular region identified on ultrasound. Incision was made and a size 18 needle was used to locate the vein. A guidewire was inserted under fluoroscopy and followed the course into the inferior vena cava. An incision was made on the chest wall to allow for placement of the Port-A-Cath reservoir. The introducer was then placed over the guidewire and the guidewire was removed. The premeasured catheter was then inserted into the introducer, the tip of which was in the superior vena cava. The reservoir was placed in the subcutaneous tissue and the incision was closed with interrupted sutures of 4-0 Vicryl subcutaneously and subcuticularly. Dermabond was placed over this. The right chest catheter was removed following lidocaine infiltration. There was purulent drainage on the opened Port-A-Cath insertion. Cultures were taken. Iodoform was used to pack the wound. The patient tolerated the procedure well. JOB# [id number]
[2016-12-14] MEDS: D5-0.9%NS 1,000 ML IV SCH (12:10)
[2016-12-14] MEDS: Therahoney Gel 42.5gm Tube TP SCH (14:53)
[2016-12-14] MEDS: Maalox 30 mL Cup PO PRN (14:53)
[2016-12-15] MEDS: D5-0.9%NS 1,000 ML IV SCH ×2 (00:20→10:42)
--- NOTE | 2016-12-15 08:43 | Diagnostic Imaging Report ---
Fluoroscopy was utilized for facilitation of previous right permacath removal and new left permacath placement. Please refer to the procedural report for complete details. The total fluoroscopic time was 26 seconds.
--- NOTE | 2016-12-15 08:53 | General Progress Note ---
Subjective - Review of Systems Events since last encounter: no distress Objective - Results Result Diagrams: 12/13/16 04:50 12/13/16 04:50 Recent Labs: Laboratory Last Values WBC 6.6 Th/cmm (4.8-10.8) 12/13/16 04:50 RBC 3.56 Mil/cmm (3.80-5.20) L 12/13/16 04:50 Hgb 11.1 gm/dL (11.7-16.1) L 12/13/16 04:50 Hct 32.7 % (35.0-45.0) L 12/13/16 04:50 MCV 91.7 fl (81-100) 12/13/16 04:50 MCH 31.1 pg (27.0-31.0) H 12/13/16 04:50 MCHC Differential 33.9 pg (28.0-36.0) 12/13/16 04:50 RDW 15.7 % (11.5-20.0) 12/13/16 04:50 Plt Count 280 Th/cmm (150-400) 12/13/16 04:50 MPV 7.1 fl 12/13/16 04:50 Neutrophils % 71.9 % (40.0-80.0) 12/13/16 04:50 Lymphocytes % 14.6 % (20.0-50.0) L 12/13/16 04:50 Monocytes % 8.7 % (2.0-10.0) 12/13/16 04:50 Eosinophils % 4.0 % (0.0-5.0) 12/13/16 04:50 Basophils % 0.8 % (0.0-2.0) 12/13/16 04:50 PT 10.7 SECONDS (9.5-11.5) 12/11/16 17:37 INR 1.03 (0.5-1.4) 12/11/16 17:37 PTT (Actin FS) 28.3 SECONDS (26.0-38.0) 12/11/16 17:37 Sodium 136 mEq/L (136-145) 12/13/16 04:50 Potassium 4.1 mEq/L (3.5-5.1) 12/13/16 04:50 Chloride 108 mEq/L (98-107) H 12/13/16 04:50 Carbon Dioxide 23.2 mEq/L (21.0-31.0) 12/13/16 04:50 Anion Gap 8.9 (7.0-16.0) 12/13/16 04:50 BUN 13 mg/dL (7-25) 12/13/16 04:50 Creatinine 0.4 mg/dL (0.6-1.2) L 12/13/16 04:50 Est GFR ( Amer) TNP 12/13/16 04:50 Est GFR (Non-Af Amer) TNP 12/13/16 04:50 BUN/Creatinine Ratio 32.5 12/13/16 04:50 Glucose 83 mg/dL (70-105) 12/13/16 04:50 POC Glucose 102 MG/DL (70 - 105) 12/14/16 07:13 Calcium 8.5 mg/dL (8.6-10.3) L 12/13/16 04:50 Total Bilirubin 0.3 mg/dL (0.3-1.0) 12/11/16 17:37 AST 13 U/L (13-39) 12/11/16 17:37 ALT 9 U/L (7-52) 12/11/16 17:37 Alkaline Phosphatase 118 U/L (34-104) H 12/11/16 17:37 Troponin I < 0.01 ng/mL (0.01-0.05) L 12/11/16 17:37 Total Protein 5.1 gm/dL (6.0-8.3) L 12/11/16 17:37 Albumin 2.6 gm/dL (3.7-5.3) L 12/11/16 17:37 Globulin 2.5 gm/dL 12/11/16 17:37 Albumin/Globulin Ratio 1.0 (1.0-1.8) 12/11/16 17:37 Triglycerides 80 mg/dL (<150) 12/11/16 17:37 Cholesterol 109 mg/dL (<200) 12/11/16 17:37 LDL Cholesterol Direct 42 mg/dL (75-193) L 12/11/16 17:37 HDL Cholesterol 55 mg/dL (23-92) 12/11/16 17:37 TSH 3.11 uIU/ml (0.34-5.60) 12/11/16 17:37 Urine Source CLEAN C 12/11/16 18:05 Urine Color YELLOW 12/11/16 18:05 Urine Clarity SLIGHT CLOUDY (CLEAR) 12/11/16 18:05 Urine pH 8.5 (4.6 - 8.0) 12/11/16 18:05 Ur Specific [place] 1.015 (1.005-1.030) 12/11/16 18:05 Urine Protein NEGATIVE mg/dL (NEGATIVE) 12/11/16 18:05 Urine Glucose (UA) NEGATIVE mg/dL (NEGATIVE) 12/11/16 18:05 Urine Ketones NEGATIVE mg/dL (NEGATIVE) 12/11/16 18:05 Urine Blood TRACE (NEGATIVE) 12/11/16 18:05 Urine Nitrate NEGATIVE (NEGATIVE) 12/11/16 18:05 Urine Bilirubin NEGATIVE (NEGATIVE) 12/11/16 18:05 Urine Urobilinogen 0.2 E.U./dL (0.2 - 1.0) 12/11/16 18:05 Ur Leukocyte Esterase LARGE (NEGATIVE) H 12/11/16 18:05 Urine RBC 0-2 /hpf (0-5) 12/11/16 18:05 Urine WBC 10-25 /hpf (0-5) H 12/11/16 18:05 Ur Epithelial Cells FEW /lpf (FEW) 12/11/16 18:05 Urine Bacteria 1+ /hpf (NONE SEEN) H 12/11/16 18:05 Vancomycin Trough 17.2 ug/mL (10-20) 12/14/16 14:10 RPR NONREACTIVE (NONREACTIVE) 12/11/16 17:37 - Physical Exam Vitals and I&O: Vital Signs Temp 97.2 F 12/15/16 04:00 Pulse 81 12/15/16 04:00 Resp 18 12/15/16 04:00 BP 132/78 12/15/16 04:00 Pulse Ox 94 12/15/16 04:00 Intake & Output 12/14/16 12/15/16 12/15/16 18:59 06:59 18:59 Intake Total 50 1890 Output Total 500 Balance 50 1390 Weight (lbs) 45.047 kg Intake: Intake, IV Amount 50 1350 D5-0.9%Ns 1,000 ml @ 100 1000 mls/hr IV .Q10H [facility] Rx#: [id number] Piperacillin Sodium/ 50 100 Tazobact 3.375 gm In Sodium Chloride 0.9% 50 ml @ 100 mls/hr IV Q8H [facility] Rx#:[id number] Vancomycin HCl 1.25 gm In 250 Sodium Chloride 0.9% 250 ml @ 165 mls/hr IV Q24H [facility] Rx#:[id number] Oral 540 Output: Urine/Stool Mix 500 Other: # Voids 3 # Bowel Movements 0 Stool Characteristics Liquid Brown Active Medications: Current Medications Al Hydrox/Mg Hydrox/Simethicone (Maalox) 30 ml PO Q6HR PRN PRN Reason: Upset Stomach / Indigestion Last Admin: 12/14/16 14:53 Dose: 30 ml Ascorbic Acid (Vitamin C) 500 mg PO BID URSULA Stop: 02/10/17 08:59 Last Admin: 12/14/16 19:15 Dose: Not Given Calcium/Vitamin D (Oscal W/Vitamin D) 1 tab PO DAILY URSULA Stop: 02/10/17 08:59 Last Admin: 12/14/16 09:31 Dose: Not Given Ferrous Sulfate (Iron) 325 mg PO BID URSULA Stop: 02/10/17 08:59 Last Admin: 12/14/16 19:14 Dose: Not Given Heparin Sodium (Porcine) (Heparin) 5,000 units SUBQ Q12HR URSULA Stop: 02/10/17 20:59 Last Admin: 12/14/16 21:09 Dose: 5,000 units Piperacillin Sod/Tazobactam (Sod 3.375 gm/ Sodium Chloride) 50 mls @ 100 mls/ hr IV Q8H U[facility] Stop: 02/09/17 21:42 Last Infusion: 12/15/16 05:33 Dose: Infused Dextrose/Sodium Chloride (D5-0.9%Ns) 1,000 mls @ 100 mls/hr IV .Q10H U[facility] Stop: 02/10/17 14:49 Last Admin: 12/15/16 00:20 Dose: 100 mls/hr Vancomycin HCl 1.25 gm/ Sodium (Chloride) 250 mls @ 165 mls/hr IV Q24H [facility] Stop: 02/11/17 14:59 Last Infusion: 12/14/16 19:16 Dose: Infused Megestrol Acetate (Megace) 400 mg PO DAILY URSULA Stop: 02/10/17 08:59 Last Admin: 12/14/16 09:32 Dose: Not Given Miscellaneous (Vancomycin Iv Per Pharmacy) 1 ea [facility] PRN PRN PRN Reason: PROTOCOL Stop: 02/09/17 21:42 Miscellaneous (Vte Chemical Prophylaxis Screen/ Admission) 1 ea MC PRN PRN PRN Reason: PROTOCOL Stop: 02/10/17 14:09 Prochlorperazine Maleate (Compazine) 10 mg PO Q6H PRN; Protocol PRN Reason: NAUSEA/VOMITING Stop: 02/09/17 21:42 Wound Care/Dressing Products (Therahoney) 1 appl TP DAILY URSULA Stop: 02/12/17 08:59 Last Admin: 12/14/16 14:53 Dose: Not Given General: No acute distress HEENT: Atraumatic Cardiovascular: Regular rate, Normal S1, Normal S2 - Procedures Procedures: Procedures Procedure Code Date INSERTION OF INFUSION DEV INTO L SUBCLAV VEIN, PERC APPROACH [id number] 12/11/16 REMOVAL OF INFUSION DEVICE FROM UPPER VEIN, OPEN APPROACH [id number] 12/11/16 REMOVAL TUNNELED CV CATH [id number] 12/11/16 Assessment/Plan - Problem List Patient Problems: All Active Problems RED AND SWOLLEN PORT-O-CATH SITE (Acute) - Plan Plan: monitor vitals diet labs f/up consultants Nutritional Asmnt/Malnutr-PDOC - Dietary Evaluation Malnutrition Findings (Please click <Entered> for more info): Nutritional Asmnt/Malnutrition Start: 12/12/16 18: 08 Text: Status: Complete Freq: Document 12/13/16 18:04 [facility] (Rec: 12/13/16 18:16 [facility] [id number]) Nutritional Asmnt/Malnutrition Patient General Information Nutritional Screening High Risk Screening Diagnosis Infected Port-A-Cath, severe malnutrition, hyponatremia Pertinent Medical Hx/Surgical Hx Malignant neoplasm of rectum, colostomy status, HTN, arthritis Subjective Information Pt is a 81-year-old female from [facility] admitted with chief complaint of an infected Port-A-Cath. Pt is awake and oriented and able to provide hx. Pt reports having a good appetite prior to admit but she has early satiety. Pt is unable to complete the meals provided. Pt normally eats 1-2 meals a day and drinks Boost supplements. Food preferences noted. Severe protein and fat wasting noted to face, chest, and biceps. Pt reports weighing 150# several years ago. Pt is completely edentulous and aware of pureed diet restrictions; pt had no questions. Current Diet Order/ Nutrition Support Preed Patient / S.O Can Pertinent Medications Vitamin C, Oscal with Vitamin D, D5-0.9 NS, Iron, Megace, Piperacillin Sodium, Vancomycin Pertinent Labs (12/11) LDL Cholesterol 42L Nutritional Hx/Data Height 1.75 m Height (Calculated Centimeters) 175.3 Current Weight (lbs) 44.815 kg Weight (Calculated Kilograms) 44.8 Weight (Calculated Grams) 81648.9 Usual body Weight (lbs) 150 % Usual Body Weight 66 [place] Body Weight 115 % [place] Body Weight 86 Recent Weight Change Yes Weight Status Underweight GI Symptoms GI Symptoms None Difficult in: Chewing Food Allergies No Cultural/Ethnic/Mandaeism Belief No cultural or oriental orthodox beliefs noted. Food preferences noted. At [facility], Pt received an fortified cereal, extra egg at breakfast, fortified mashed potato, red jello at lunch and dinner, extra protein at lunch, lactose free milk TID, healthshake at 1000, and sherbet BID between meals. [place] would be available per pt's request. Usual diet at home Pureed, ProStat 30 ml TID Skin Integrity/Comment: Pete 16. Pressure wound to coccyx, per RN notes. Current %PO Poor (25-49%) Estimated Nutritional Goals BEE in Kcals: Adj wt of IBW Calories/Kcals/Kg Based on IBW 52.3 kg with consideration of malnutrition Kcals Calculated 6367-9667 kcals/day (30-35 kcals/kg) Protein: Adj wt of IBW Protein g/kg: Based on IBW 52.3 kg with consideration of malnutrition Protein Calculated 63-78 gm/day (1.2-1.5 gm/kg) Fluid: ml 3927-4034 ml/day (1 ml/kcal) Nutritional Problem 1. 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 Malnutrition Alert Body Fat Depletion (Severe) Mod to Severe Depletion Muscle Mass (Severe) Mod to Severe Depletion Protein-Calorie Malnutrition Severe Is there a minimum of two criteria Yes selected? Query Text:Check all the applicable criteria. A minimum of two criteria are recommended for diagnosis of either severe or non-severe malnutrition. Malnutrition Related to Morbid Obesity Malnutrition related to morbid obesity No Intervention/Recommendation Recommendations by RD Protein supplementation Comments 1. Continue with puree diet. Pt is able to work with [facility] for menu selections. [place] food preferences. 2. Recommend Boost supplement between meals at 1000, 1500, and 2000 to promote nutritional intake. Pt is agreeable to plan. Expected Outcomes/Goals Expected Outcomes/Goals Have pt meet at least 75% of estimated nutritional needs. Physician Parameters for PEM Normal Weight % 75% - 85% (Moderate) Body Mass Index (BMI) 16 - 17.9 (Moderate) Serum Albumin (g/dl) 2.4 - 3.0 (Moderate)
[2016-12-15] MEDS: Ferrous Sulfate 325 MG TAB PO SCH ×2 (09:41→17:01)
[2016-12-15] MEDS: Calcium Carb/Vit D 500 mg/200 U Tab PO SCH (09:41)
[2016-12-15] MEDS: Multivitamin w/ Minerals Tab PO SCH (09:42)
[2016-12-15] MEDS: Therahoney Gel 42.5gm Tube TP SCH (10:44)
[2016-12-15] MEDS ORDERED: Probiotic Screen MC PRN (15:56)
[2016-12-15] MEDS: Maalox 30 mL Cup PO PRN (21:00)
[2016-12-16] MEDS ORDERED: Lactobacillus Rhamnosus 10 Billion CFU Capsule PO SCH (17:00)
== END 2016-12-15 22:40 | disposition home or self-care (01) | DRG 711 ==
LOC: ER 16:12 → MSI 18:37
PROVIDERS: ADMIT Internal Medicine; ATTEND Internal Medicine
PROC: 05PY03Z Removal of Infusion Device from Upper Vein, Open Approach (ICD-10-PCS; principal; 2016-12-14)
PROC: 02HV33Z Insertion of Infusion Device into Superior Vena Cava, Percutaneous Approach (ICD-10-PCS; 2016-12-14)
PROC: B5181ZA Fluoroscopy of Superior Vena Cava using Low Osmolar Contrast, Guidance (ICD-10-PCS; 2016-12-14)
DX: T80.219A Unspecified infection due to central venous catheter, initial encounter (principal); E43 Unspecified severe protein-calorie malnutrition; N39.0 Urinary tract infection, site not specified; C19 Malignant neoplasm of rectosigmoid junction; E87.1 Hypo-osmolality and hyponatremia; I10 Essential (primary) hypertension; M19.90 Unspecified osteoarthritis, unspecified site; Z68.1 Body mass index [BMI] 19.9 or less, adult; R13.10 Dysphagia, unspecified; Y83.8 Other surgical procedures as the cause of abnormal reaction of the patient, or of later complication, without mention of misadventure at the time of the procedure; Y92.89 Other specified places as the place of occurrence of the external cause; Z93.3 Colostomy status
CPT/HCPCS: 36415-UA; 71010-TC; 76000-TC; 80048-TC; 80053-TC; 80061-TC; 80202-TC; 81001-TC; 82948-90; 84443-TC; 84484-TC; 85025-TC; 85610-TC; 85730-TC; 86592-TC; 87070-90; 87086-90; 93005; J0696; J1644; J2001; J2250; J2543; J2704; J3370; J7030; J7042; J7799; V2790; Z7610

== ENCOUNTER 2017-09-25 12:21 | Inpatient (IN) | payer MEDICAID ==
[2017-09-25 13:14] LABS: % BASOPHILS 0.4 % (0.0-2.0); % EOSINOPHILS 3.3 % (0.0-5.0); % LYMPHOCYTES 10.1 % (20.0-50.0); % MONOCYTES 5.3 % (2.0-10.0); % NEUTROPHILS 80.9 % (40.0-80.0); EOSINOPHILE ABSOLUTE 0.3 Th/cmm (0.1-0.4); HEMATOCRIT 34.9 % (41.0-60); HEMOGLOBIN 11.7 gm/dL (12-16); LYMPHOCYTE ABSOLUTE 0.9 Th/cmm (1.5-3.0); MEAN CELL VOLUME 85.3 fl (81-100); MEAN CORPUSCULAR HEMOGLOBIN 28.5 pg (27.0-31.0); MEAN CORPUSCULAR HGB CONC 33.4 pg (28.0-36.0); MONOCYTE ABSOLUTE 0.5 Th/cmm (0.3-1.0); NEUTROPHILE ABSOLUTE 7.6 Th/cmm (1.8-8.0); PLATELET COUNT 239 Th/cmm (150-400); RED CELL DISTRIBUTION WIDTH 14.3 % (11.5-20.0); WHITE BLOOD COUNT 9.3 Th/cmm (4.8-10.8)
[2017-09-25 13:22] LABS: PROTHROMBIN TIME (TEST) 10.4 SECONDS (9.5-11.5)
[2017-09-25 13:28] LABS: ALB/GLOB RATIO 1.1 (1.0-1.8); ALBUMIN 3.6 gm/dL (3.7-5.3); ALKALINE PHOSPHATASE 181 U/L (34-104); BILIRUBIN,TOTAL 0.4 mg/dL (0.3-1.0); BUN - UREA NITROGEN 24 mg/dL (7-25); CALCIUM SERUM 9.5 mg/dL (8.6-10.3); CARBON DIOXIDE 26.3 mEq/L (21.0-31.0); CHLORIDE 102 mEq/L (98-107); CREATININE - SERUM 0.6 mg/dL (0.6-1.2); CREATININE KINASE 22 U/L (30-223); GLUCOSE 92 mg/dL (70-105); POTASSIUM SERUM 4.3 mEq/L (3.5-5.1); SGOT 22 U/L (13-39); SGPT/ALT 13 U/L (7-52); SODIUM SERUM 136 mEq/L (136-145); TOTAL PROTEIN,SERUM 6.9 gm/dL (6.0-8.3)
--- NOTE | 2017-09-25 14:38 | ED Physician Chart ---
ED Chief Complaint/HPI - Patient Information Date Seen:: 09/25/17 Time Seen:: 12:30 Chief Complaint:: Myalgias History of Present Illness:: onset x 2 days of dysfunctioning catheter; pt presents for removal of left subclavian catheter; no report of trauma, H/As, S/T, neck pain, C/P, SOB, Abd. pain, A/N/V/D/C, fever, chills, or urinary s/s; pt's last tetanus shot: < 5 years; UTD Allergies:: Allergies Allergy/AdvReac Type Severity Reaction Status Date / Time No Known Allergies Allergy Verified 12/11/16 17:46 Vitals:: Vital Signs - 8 hr 09/25/17 12:31 Temp 97.5 F HR 78 RR 16 BP 110/54 O2 Sat % 96 Historian:: Patient, EMS Review:: Nurse's Note Reviewed, Old Chart Reviewed, EMS run form Reviewed ED Review of Systems - Review of Systems General/Constitutional: No fever, No chills, No weight loss, No weakness, No diaphoresis, No edema, No loss of appetite Skin: No skin lesions, No rash, No bruising Head: No headache, No light-headedness Eyes: No loss of vision, No pain, No diplopia ENT: No earache, No nasal drainage, No sore throat, No tinnitus Neck: No neck pain, No swelling, No thyromegaly, No stiffness, No mass noted Cardio Vascular: No chest pain, No palpitations, No PND, No orthopnea, No edema Pulmonary: No SOB, No cough, No sputum, No wheezing GI: No nausea, No vomiting, No diarrhea, No pain, No melena, No hematochezia, No constipation, No hematemesis G/U: No dysuria, No frequency, No hematuria, No nacturia Sales And Marketing Representative: No vaginal discharge, No abnormal vaginal bleed, No contraction Musculoskeletal: Bone or joint pain, No back pain, Muscle pain Endocrine: No polyuria, No polydipsia Psychiatric: No prior psych history, No depression, No anxiety, No suicidal ideation, No homicidal ideation, No auditory hallucination, No visual hallucination Hematopoietic: No bruising, No lymphadenopathy Allergic/Immuno: No urticaria, No angioedema Neurological: No syncope, No focal symptoms, No weakness, No paresthesia, No headache, No seizure, No dizziness, No confusion, No vertigo ED Past Medical History - Past Medical History Obtainable: Yes Past Medical History: HTN, Dyslipidemia, Other (Colon Cancer) Family History: HTN Social History: Non Smoker, No Alcohol, No Drug Use, , Care Facility Surgical History: other (Central Line Insertion) Psychiatricy History: None Medication: Reviewed Family Medical History - Family Member mother History Unknown: Yes Ethnicity: Non- Living Status: Hx Family Cancer: Yes (Unknown kind) Hx Family Coronary Artery Disease: No Hx Family Congestive Heart Failure: No Hx Family Hypertension: No Hx Family Stroke: No Hx Family Diabetes: No Hx Family Seizures: No Hx Family Dementia: No Hx Family AIDS: No Hx Family HIV: No Hx Family COPD: No Hx Family Hepatitis: No Hx Family Psychiatric Problems: No Hx Family Tuberculosis: No ED Physical Exam - Physical Examination General/Constitutional: Awake, Well-developed, well-nourished, Alert, No distress, GCS 15, Non-toxic appearing, Ambulatory Head: Atraumatic Eyes: Lids, conjuctiva normal, PERRL, EOMI Skin: Nl inspection, No rash, No skin lesions, No ecchymosis, Well hydrated, No lymphadenopathy Other Skin comments:: Left Thumb Wound; no FBs; good NV functions ENMT: External ears, nose nl, TM canals nl, Nasal exam nl, Lips, teeth, gums nl , Oropharynx nl, Tonsils nl Neck: Nontender, Full ROM w/o pain, No JVD, No nuchal rigidity, No bruit, No mass, No stridor Respiratory: Nl effort/Exclusion, Clear to Auscultation, No Wheeze/Rhonchi/Rales Cardio Vascular: RRR, No murmur, gallop, rubs, NL S1 S2, Carotid/Femoral/Distal pulses equal bilaterally GI: No tenderness/rebounding/guarding, No organomegaly, No hernia, Normal BS's, Nondistended, No mass/bruits, No McBurney tenderness : No CVA tenderness Extremities: No tenderness or effusion, Full ROM, normal strength in all extremities, No edema, Normal digits & nails Neuro/Psych: Alert/oriented, DTR's symmetric, Normal sensory exam, Normal motor strength, Judgement/insight normal, Mood normal, Normal gait, No focal deficits Misc: Normal back, No paraspinal tenderness ED Labs/Radiology/EKG Results - Lab Results Results: Laboratory Tests 09/25/17 09/25/17 09/25/17 13:00 13:00 13:00 WBC 9.3 RBC 4.10 Hgb 11.7 L Hct 34.9 L MCV 85.3 MCH 28.5 MCHC Differential 33.4 RDW 14.3 Plt Count 239 MPV 7.0 Neutrophils % 80.9 H Lymphocytes % 10.1 L Monocytes % 5.3 Eosinophils % 3.3 Basophils % 0.4 PT 10.4 INR 1.00 PTT (Actin FS) 24.1 L Sodium 136 Potassium 4.3 Chloride 102 Carbon Dioxide 26.3 Anion Gap 12.0 BUN 24 Creatinine 0.6 Est GFR ( Amer) TNP Est GFR (Non-Af Amer) TNP BUN/Creatinine Ratio 40.0 Glucose 92 Whole Bld Lactic Acid Calcium 9.5 Total Bilirubin 0.4 AST 22 ALT 13 Alkaline Phosphatase 181 H Creatine Kinase 22 L Troponin I Total Protein 6.9 Albumin 3.6 L Globulin 3.3 Albumin/Globulin Ratio 1.1 09/25/17 09/25/17 13:00 13:00 WBC RBC Hgb Hct MCV MCH MCHC Differential RDW Plt Count MPV Neutrophils % Lymphocytes % Monocytes % Eosinophils % Basophils % PT INR PTT (Actin FS) Sodium Potassium Chloride Carbon Dioxide Anion Gap BUN Creatinine Est GFR ( Amer) Est GFR (Non-Af Amer) BUN/Creatinine Ratio Glucose Whole Bld Lactic Acid 0.80 Calcium Total Bilirubin AST ALT Alkaline Phosphatase Creatine Kinase Troponin I 0.01 Total Protein Albumin Globulin Albumin/Globulin Ratio Comments:: H/H: 11.7/34.9 - EKG Interpretations EKG Time:: 12:36 Rate & Rhythm: 77; NSR Comments:: non-specific st-t changes ED Septic Shock - . Is Septic Shock (SBP<90, OR Lactate>4 mmol\L) present?: No - <6hrs of presentation: Vital Signs: Vital Signs - 8 hr 09/25/17 12:31 Temp 97.5 F HR 78 RR 16 BP 110/54 O2 Sat % 96 ED Reassessment (Disposition) - Reassessment Reassessment Condition:: Improved - Diagnosis Diagnosis:: Anemia; Colon Cancer; Metastatic CA; Catheter Dysfunction; Catheter Replacement - Aftercare/Follow up Instructions Aftercare/Follow-Up Instructions:: Counseled pt regarding lab results/diagnosis & need follow up, Counseled pt & family regarding lab results/diagnosis & need follow up - Patient Disposition Discharge/Transfer:: Acute Care w/in this hosp Accepting Physician:: Dr. Choudhury Time Called:: 1425 Time Responded:: 14:25 Admitted to:: Med/Surg Spoke to:: Dr. Choudhury Admitting Medical Physician:: Dr. Choudhury Condition at Disposition:: Stable, Improved
[2017-09-26] MEDS ORDERED: Maalox 30 mL Cup PO PRN (09:44)
[2017-09-26] MEDS: Multivitamin w/ Minerals Tab PO SCH (10:17)
[2017-09-26] MEDS: Calcium Carb/Vit D 500 mg/200 U Tab PO SCH (10:17)
--- NOTE | 2017-09-26 11:35 | General Progress Note ---
Subjective - Review of Systems Service Date: 09/26/17 Events since last encounter: malfunctioning portacath used for chemo for colon CA 3 years ago Plan: removal of portacath (no replacement?) Objective - Results Result Diagrams: 09/25/17 13:00 09/25/17 13:00 Recent Labs: Laboratory Last Values WBC 9.3 Th/cmm (4.8-10.8) 09/25/17 13:00 RBC 4.10 Mil/cmm (3.80-5.20) 09/25/17 13:00 Hgb 11.7 gm/dL (12-16) L 09/25/17 13:00 Hct 34.9 % (41.0-60) L 09/25/17 13:00 MCV 85.3 fl (81-100) 09/25/17 13:00 MCH 28.5 pg (27.0-31.0) 09/25/17 13:00 MCHC Differential 33.4 pg (28.0-36.0) 09/25/17 13:00 RDW 14.3 % (11.5-20.0) 09/25/17 13:00 Plt Count 239 Th/cmm (150-400) 09/25/17 13:00 MPV 7.0 fl 09/25/17 13:00 Neutrophils % 80.9 % (40.0-80.0) H 09/25/17 13:00 Lymphocytes % 10.1 % (20.0-50.0) L 09/25/17 13:00 Monocytes % 5.3 % (2.0-10.0) 09/25/17 13:00 Eosinophils % 3.3 % (0.0-5.0) 09/25/17 13:00 Basophils % 0.4 % (0.0-2.0) 09/25/17 13:00 PT 10.4 SECONDS (9.5-11.5) 09/25/17 13:00 INR 1.00 (0.5-1.4) 09/25/17 13:00 PTT (Actin FS) 24.1 SECONDS (26.0-38.0) L 09/25/17 13:00 Sodium 136 mEq/L (136-145) 09/25/17 13:00 Potassium 4.3 mEq/L (3.5-5.1) 09/25/17 13:00 Chloride 102 mEq/L (98-107) 09/25/17 13:00 Carbon Dioxide 26.3 mEq/L (21.0-31.0) 09/25/17 13:00 Anion Gap 12.0 (7.0-16.0) 09/25/17 13:00 BUN 24 mg/dL (7-25) 09/25/17 13:00 Creatinine 0.6 mg/dL (0.6-1.2) 09/25/17 13:00 Est GFR ( Amer) TNP 09/25/17 13:00 Est GFR (Non-Af Amer) TNP 09/25/17 13:00 BUN/Creatinine Ratio 40.0 09/25/17 13:00 Glucose 92 mg/dL (70-105) 09/25/17 13:00 Whole Bld Lactic Acid 0.80 mmol/L (0.60-1.99) 09/25/17 13:00 Calcium 9.5 mg/dL (8.6-10.3) 09/25/17 13:00 Total Bilirubin 0.4 mg/dL (0.3-1.0) 09/25/17 13:00 AST 22 U/L (13-39) 09/25/17 13:00 ALT 13 U/L (7-52) 09/25/17 13:00 Alkaline Phosphatase 181 U/L (34-104) H 09/25/17 13:00 Creatine Kinase 22 U/L (30-223) L 09/25/17 13:00 Troponin I 0.01 ng/mL (0.01-0.05) 09/25/17 13:00 Total Protein 6.9 gm/dL (6.0-8.3) 09/25/17 13:00 Albumin 3.6 gm/dL (3.7-5.3) L 09/25/17 13:00 Globulin 3.3 gm/dL 09/25/17 13:00 Albumin/Globulin Ratio 1.1 (1.0-1.8) 09/25/17 13:00 - Physical Exam Vitals and I&O: Vital Signs Temp 97.4 F 09/26/17 08:00 Pulse 73 09/26/17 08:00 Resp 18 05/30/18 08:00 BP 108/66 09/26/17 08:00 Pulse Ox 94 09/26/17 08:00 Intake & Output 09/25/17 09/26/17 09/26/17 18:59 06:59 18:59 Intake Total 240 Balance 240 Weight (lbs) 48.534 kg 53.887 kg Intake: Oral 240 Other: # Voids 2 Stool Characteristics Soft Formed Weight Source Patient stated Bedscale Active Medications: Current Medications Al Hydrox/Mg Hydrox/Simethicone (Maalox) 30 ml PO Q6H PRN PRN Reason: Upset Stomach / Indigestion Stop: 11/25/17 09:43 Ascorbic Acid (Vitamin C) 500 mg PO BID [facility] Stop: 11/25/17 16:59 Calcium/Vitamin D (Oscal W/Vitamin D) 1 tab PO DAILY [facility] Stop: 11/25/17 09:59 Last Admin: 09/26/17 10:17 Dose: Not Given Ferrous Sulfate (Iron) 325 mg PO BID [facility] Stop: 11/25/17 16:59 Megestrol Acetate (Megace) 400 mg PO DAILY [facility] Stop: 11/25/17 09:59 Last Admin: 09/26/17 10:17 Dose: Not Given Miscellaneous (Amino Acids/Protein Hydrolys [Pro-Stat Sugar Free Liquid]) 30 ml PO TID [facility] Stop: 11/25/17 13:59 Prochlorperazine Maleate (Compazine) 10 mg PO Q6H PRN; Protocol PRN Reason: NAUSEA/VOMITING Stop: 11/25/17 09:43 - Procedures Procedures: Procedures Procedure Code Date FLUOROSCOPY OF SUP VENA CAVA USING L OSM CONTRAST, GUIDANCE [id number] 12/11/16 INSERTION OF INFUSION DEV INTO SUP VENA CAVA, PERC APPROACH [id number] 12/11/16 REMOVAL OF INFUSION DEVICE FROM UPPER VEIN, OPEN APPROACH [id number] 12/11/16 REMOVAL TUNNELED CV CATH [id number] 12/11/16
--- NOTE | 2017-09-26 13:39 | Diagnostic Imaging Report ---
Portable chest x-ray HISTORY: Shortness of breath Heart size is somewhat difficult to assess with portable technique, but appears generous. Atherosclerotic calcification seen in the aorta. No acute focal prominent processes. A left-sided vascular catheter tip is in the region of the superior vena cava. IMPRESSION: 1. No acute focal pulmonary processes 2. Generous heart size with atherosclerotic vascular changes 3. Vascular catheter placement as noted
--- NOTE | 2017-09-26 14:36 | Consultation ---
Consult Note - Consult Note Service Date: 09/26/17 Referring Physician: Suzie Choudhury Consult Note: PHYSICIAN Consultation Note: Date of Admission: 09/25/17 Purpose of Consultation: lesion on the left thumb. Chief Complaint: Patient ARLENE FORREST was admitted to location Medical/ Surgical Unit I with LEFT HAND MYOSITIS. History of Present Illness: 81 year-old female with history of HTN has received chemotherapy for colon CA, brought to the ER for removal of permacath, which was done today. She was found to have tiny hard swelling on the left thumb. ID Consult was called for evaluation. Past Medical History: Allergies Allergy/AdvReac Type Severity Reaction Status Date / Time No Known Allergies Allergy Verified 12/11/16 17:46 Vital Signs Temp 97.4 F 09/26/17 08:00 Pulse 73 09/26/17 08:00 Resp 18 09/26/17 08:00 BP 108/66 09/26/17 08:00 Pulse Ox 94 09/26/17 08:00 Intake & Output 09/25/17 09/26/17 09/26/17 18:59 06:59 18:59 Intake Total 240 Balance 240 Weight (lbs) 48.534 kg 53.887 kg Intake: Oral 240 Other: # Voids 2 Stool Characteristics Soft Formed Weight Source Patient stated Bedscale Home Medication Medication Instructions Recorded Type Amino Acids/Protein Hydrolys 30 ml PO TID 12/11/16 History [Pro-Stat Sugar Free Liquid] Ascorbic Acid [Vitamin C] 500 mg PO BID 12/11/16 History Calcium Carb/Vit D 500mg/200U 1 tab PO DAILY 12/11/16 History [Oscal w/Vitamin D] Ferrous Gluconate 324 mg PO BID 12/11/16 History Megestrol Acetate [Megace] 400 mg PO DAILY 12/11/16 History Multivitamin w/ Minerals 1 tab PO DAILY 12/11/16 History [Theragran M] Mylanta 30 ml PO Q6HR PRN 12/11/16 History Prochlorperazine Maleate 10 mg PO Q6H PRN 12/11/16 History [Compazine] Current Medications Generic Name Dose Route Start Last Admin Trade Name Freq PRN Reason Stop Dose Admin Al Hydrox/Mg Hydrox/Simethicone 30 ml 09/26/17 09:44 Maalox PO 11/25/17 09:43 Q6H PRN Upset Stomach / Indigestion Ascorbic Acid 500 mg 09/26/17 17:00 Vitamin C PO 11/25/17 16:59 BID [facility] Calcium/Vitamin D 1 tab 09/26/17 10:00 09/26/17 10:17 Oscal W/Vitamin D PO 11/25/17 09:59 Not Given DAILY [facility] Ferrous Sulfate 325 mg 09/26/17 17:00 Iron PO 11/25/17 16:59 BID [facility] Megestrol Acetate 400 mg 09/26/17 10:00 09/26/17 10:17 Megace PO 11/25/17 09:59 Not Given DAILY [facility] Miscellaneous 30 ml 09/26/17 14:00 Amino Acids/Protein Hydrolys [Pro-Stat Sugar Free Liquid] PO 11/25/17 13:59 TID [facility] Prochlorperazine Maleate 10 mg 09/26/17 09:44 Compazine PO 11/25/17 09:43 Q6H PRN NAUSEA/VOMITING Protocol Review of Systems: A 12 point ROS was reviewed with the pertinent positive and negatives noted in the HPI. Social History Smoking Status Never smoker Family Medical History Unknown. Physical Exam: General: WN WD, not in any acute distress. HEENT: Head: Normocephalic, atraumatic. Oral cavity: moist, pink tongue. Eyes: no pallor. no icterus. pupil PERRLA. EOMI. Neck: Supple, no JVD, no carotid bruit. no use of accessory neck muscles. Cardio: S1 and S2 WNL. Respiratory: Vesicular BS, no crackles, no wheezing. Abdominal: Soft NT ND BS present. Genital/Urinary: deferred. Extremities: NCCE Neurological: AAOx3. Assessment: 1. wart in the left thumb. 2. Removal of permacath. 3. HTN. 4. H/o ca colon. Plan: Surgical treatment for wart and biopsy. Signed, Dennis Bello M.D. [id number]
[2017-09-26] MEDS: Non-Formulary Item 1 EA (Amino Acids/Protein Hydrolys [Pro-Stat Sugar Free Liquid] 30 ML) PO SCH ×2 (15:44→21:06)
[2017-09-26] MEDS: Ferrous Sulfate 325 MG TAB PO SCH (18:32)
--- NOTE | 2017-09-26 21:32 | History & Physical ---
ADMIT DATE: 09/25/2017 HISTORY OF PRESENT ILLNESS: This patient is very well known to me. The patient is from [facility], [place]. The patient is known to have history of left hand pain, left hand myositis, rule out osteomyelitis, and also the patient known to have history of CA colon with metastasis. This was treated with chemo as well as radiation. The patient also has left Zfei-C-Oqxphhqd not in use and need to be removed. The patient complains of severe weakness all over the body. REVIEW OF SYSTEMS: Negative. PAST MEDICAL HISTORY: As noted above, history of colon cancer, colostomy. PHYSICAL EXAMINATION: HEAD: Normal. ENT: Normal. NECK: Supple, nontender. LUNGS: Clear. CARDIOVASCULAR SYSTEM: S1, S2 heard. ABDOMEN: Soft. EXTREMITIES: Reveal no edema. Left-sided Ksph-J-Efcyqshg was noted in the left subclavian and also has left hand pain and tenderness in the wraps. DIAGNOSES: Left hand pain and myositis, rule out osteomyelitis, left Rllt-E-Ipedaqve to be removed, history of CA colon with metastasis, status post radiation, status post chemo. PLAN: To have removal of Cxna-X-Ehfjiojd and I will follow the patient. JOB# [id number]
[2017-09-27 07:24] LABS: % BASOPHILS 0.9 % (0.0-2.0); % EOSINOPHILS 4.4 % (0.0-5.0); % MONOCYTES 7.4 % (2.0-10.0); % NEUTROPHILS 75.3 % (40.0-80.0); BASOPHILE ABSOLUTE 0.1 Th/cumm (0-0.2); EOSINOPHILE ABSOLUTE 0.3 Th/cmm (0.1-0.4); HEMOGLOBIN 12.5 gm/dL (12-16); LYMPHOCYTE ABSOLUTE 0.9 Th/cmm (1.5-3.0); MEAN CELL VOLUME 86.4 fl (81-100); MEAN CORPUSCULAR HEMOGLOBIN 29.1 pg (27.0-31.0); MEAN CORPUSCULAR HGB CONC 33.7 pg (28.0-36.0); MEAN PLATELET VOLUME 7.2 fl; MONOCYTE ABSOLUTE 0.6 Th/cmm (0.3-1.0); NEUTROPHILE ABSOLUTE 5.9 Th/cmm (1.8-8.0); PLATELET COUNT 247 Th/cmm (150-400); RED BLOOD COUNT 4.28 Mil/cmm (3.80-5.20); RED CELL DISTRIBUTION WIDTH 14.2 % (11.5-20.0); WHITE BLOOD COUNT 7.8 Th/cmm (4.8-10.8)
[2017-09-27 07:36] LABS: ANION GAP 10.6 (7.0-16.0); BUN - UREA NITROGEN 23 mg/dL (7-25); CALCIUM SERUM 9.7 mg/dL (8.6-10.3); CARBON DIOXIDE 27.4 mEq/L (21.0-31.0); CHLORIDE 103 mEq/L (98-107); CREATININE - SERUM 0.7 mg/dL (0.6-1.2); GLUCOSE 80 mg/dL (70-105); SODIUM SERUM 137 mEq/L (136-145)
[2017-09-27] MEDS: Non-Formulary Item 1 EA (Amino Acids/Protein Hydrolys [Pro-Stat Sugar Free Liquid] 30 ML) PO SCH ×3 (08:36→23:35)
[2017-09-27] MEDS: Calcium Carb/Vit D 500 mg/200 U Tab PO SCH (08:37)
[2017-09-27] MEDS: Ferrous Sulfate 325 MG TAB PO SCH ×2 (08:37→18:42)
[2017-09-27] MEDS: Multivitamin w/ Minerals Tab PO SCH (08:37)
[2017-09-27] MEDS ORDERED: Midazolam 1mg/ml 2 ml vial IV ONE (08:40)
--- NOTE | 2017-09-27 09:44 | Consultation ---
DATE OF CONSULTATION: 09/26/2017 SURGICAL CONSULT REFERRING PHYSICIAN: Dr. Choudhury. REASON FOR CONSULTATION: Removal of Port-A-Cath. HISTORY OF PRESENT ILLNESS: This 81-year-old female who underwent a colon resection for malignancy 3 years ago and received chemotherapy. The Port-A-Cath in the left chest has not been used and is not necessary. The patient has complained of generalized weakness, has complained of pain in the left thumb. An MRI has been ordered for this. Etiology is generalized weakness is not well defined at this point. PAST MEDICAL HISTORY: The patient has past history of chemotherapy and hypertension. PHYSICAL EXAMINATION: GENERAL: The patient appears to be well oriented. There is a Port-A-Cath in the left subclavian location. Colostomy is functioning well. There seems to be a lesion on the left thumb. An MRI has been ordered. PLAN: Removal of Port-A-Cath under sedation and local anesthesia. Thank you Dr. Pool. JOB# [id number]
--- NOTE | 2017-09-27 10:06 | Operative Report ---
DATE OF SURGERY: 09/27/2017 PREOPERATIVE DIAGNOSES: 1. Cancer of the colon, post resection and colostomy status. 2. Generalized weakness. POSTOPERATIVE DIAGNOSES: 1. Cancer of the colon, post resection and colostomy status. 2. Generalized weakness. OPERATION DONE: Removal of Port-A-Cath, left chest. SURGEON: Ivelisse Pool MD. ANESTHESIA: MAC. ANESTHESIOLOGIST: Filemon. ESTIMATED BLOOD LOSS: None. PROCEDURE: The patient was given IV sedation. The left chest was prepped with Betadine and draped. A 1% lidocaine was used to infiltrate the old scar. Incision was made through the scar and bleeders were coagulated. The Port-A-Cath was explanted. The wound was closed with a running suture of 3-0 Vicryl for the subcutaneous tissues, closing the old cavity and the skin was closed with 4-0 Vicryl. Sterile dressing was placed over this. The patient tolerated the procedure well. [facility]# [id number]
--- NOTE | 2017-09-27 10:13 | Infectious Disease Prog Note ---
Infectious Disease Subjective - Review of Systems Service Date: 09/27/17 Subjective: No new change, no fever. Infectious Disease Objective - Results Result Diagrams: 09/27/17 06:50 09/27/17 06:50 Recent Labs: Laboratory Last Values WBC 7.8 Th/cmm (4.8-10.8) 09/27/17 06:50 RBC 4.28 Mil/cmm (3.80-5.20) 09/27/17 06:50 Hgb 12.5 gm/dL (12-16) 09/27/17 06:50 Hct 37.0 % (41.0-60) L 09/27/17 06:50 MCV 86.4 fl (81-100) 09/27/17 06:50 MCH 29.1 pg (27.0-31.0) 09/27/17 06:50 MCHC Differential 33.7 pg (28.0-36.0) 09/27/17 06:50 RDW 14.2 % (11.5-20.0) 09/27/17 06:50 Plt Count 247 Th/cmm (150-400) 09/27/17 06:50 MPV 7.2 fl 09/27/17 06:50 Neutrophils % 75.3 % (40.0-80.0) 09/27/17 06:50 Lymphocytes % 12.0 % (20.0-50.0) L 09/27/17 06:50 Monocytes % 7.4 % (2.0-10.0) 09/27/17 06:50 Eosinophils % 4.4 % (0.0-5.0) 09/27/17 06:50 Basophils % 0.9 % (0.0-2.0) 09/27/17 06:50 PT 10.4 SECONDS (9.5-11.5) 09/25/17 13:00 INR 1.00 (0.5-1.4) 09/25/17 13:00 PTT (Actin FS) 24.1 SECONDS (26.0-38.0) L 09/25/17 13:00 Sodium 137 mEq/L (136-145) 09/27/17 06:50 Potassium 4.0 mEq/L (3.5-5.1) 09/27/17 06:50 Chloride 103 mEq/L (98-107) 09/27/17 06:50 Carbon Dioxide 27.4 mEq/L (21.0-31.0) 09/27/17 06:50 Anion Gap 10.6 (7.0-16.0) 09/27/17 06:50 BUN 23 mg/dL (7-25) 09/27/17 06:50 Creatinine 0.7 mg/dL (0.6-1.2) 09/27/17 06:50 Est GFR ( Amer) TNP 09/27/17 06:50 Est GFR (Non-Af Amer) TNP 09/27/17 06:50 BUN/Creatinine Ratio 32.9 09/27/17 06:50 Glucose 80 mg/dL (70-105) 09/27/17 06:50 POC Glucose 80 MG/DL (70 - 105) 09/27/17 05:22 Whole Bld Lactic Acid 0.80 mmol/L (0.60-1.99) 09/25/17 13:00 Calcium 9.7 mg/dL (8.6-10.3) 09/27/17 06:50 Total Bilirubin 0.4 mg/dL (0.3-1.0) 09/25/17 13:00 AST 22 U/L (13-39) 09/25/17 13:00 ALT 13 U/L (7-52) 09/25/17 13:00 Alkaline Phosphatase 181 U/L (34-104) H 09/25/17 13:00 Creatine Kinase 22 U/L (30-223) L 09/25/17 13:00 Troponin I 0.01 ng/mL (0.01-0.05) 09/25/17 13:00 Total Protein 6.9 gm/dL (6.0-8.3) 09/25/17 13:00 Albumin 3.6 gm/dL (3.7-5.3) L 09/25/17 13:00 Globulin 3.3 gm/dL 09/25/17 13:00 Albumin/Globulin Ratio 1.1 (1.0-1.8) 09/25/17 13:00 - Physical Exam Vitals and I&O: Vital Signs Temp 98.2 F 09/27/17 04:00 Pulse 70 09/27/17 04:00 Resp 18 09/27/17 04:00 BP 110/60 09/27/17 04:00 Pulse Ox 97 09/27/17 04:00 Intake & Output 09/26/17 09/27/17 09/27/17 18:59 06:59 18:59 Intake Total 560 240 Output Total 150 100 Balance 410 140 Weight (lbs) 53.524 kg 53.524 kg 53.524 kg Intake: Oral 560 240 Output: Stool 150 100 Other: # Voids 3 2 Stool Characteristics Liquid Brown Weight Source Bedscale Bedscale Estimated Active Medications: Current Medications Al Hydrox/Mg Hydrox/Simethicone (Maalox) 30 ml PO Q6H PRN PRN Reason: Upset Stomach / Indigestion Stop: 11/25/17 09:43 Ascorbic Acid (Vitamin C) 500 mg PO BID [facility] Stop: 11/25/17 16:59 Last Admin: 09/27/17 08:36 Dose: Not Given Calcium/Vitamin D (Oscal W/Vitamin D) 1 tab PO DAILY [facility] Stop: 11/25/17 09:59 Last Admin: 09/27/17 08:37 Dose: Not Given Ferrous Sulfate (Iron) 325 mg PO BID [facility] Stop: 11/25/17 16:59 Last Admin: 09/27/17 08:37 Dose: Not Given Megestrol Acetate (Megace) 400 mg PO DAILY [facility] Stop: 11/25/17 09:59 Last Admin: 09/27/17 08:37 Dose: Not Given Miscellaneous (Amino Acids/Protein Hydrolys [Pro-Stat Sugar Free Liquid]) 30 ml PO TID [facility] Stop: 11/25/17 13:59 Last Admin: 09/27/17 08:36 Dose: Not Given Prochlorperazine Maleate (Compazine) 10 mg PO Q6H PRN; Protocol PRN Reason: NAUSEA/VOMITING Stop: 11/25/17 09:43 - Procedures Procedures: Procedures Procedure Code Date FLUOROSCOPY OF SUP VENA CAVA USING L OSM CONTRAST, GUIDANCE [id number] 12/11/16 INSERTION OF INFUSION DEV INTO SUP VENA CAVA, PERC APPROACH [id number] 12/11/16 REMOVAL OF INFUSION DEVICE FROM UPPER VEIN, OPEN APPROACH [id number] 12/11/16 REMOVAL TUNNELED CV CATH [id number] 12/11/16
--- NOTE | 2017-09-27 11:47 | General Progress Note ---
Subjective - Review of Systems Events since last encounter: no changes no fever c/o weakness generalized Objective - Results Result Diagrams: 09/27/17 06:50 09/27/17 06:50 Recent Labs: Laboratory Last Values WBC 7.8 Th/cmm (4.8-10.8) 09/27/17 06:50 RBC 4.28 Mil/cmm (3.80-5.20) 09/27/17 06:50 Hgb 12.5 gm/dL (12-16) 09/27/17 06:50 Hct 37.0 % (41.0-60) L 09/27/17 06:50 MCV 86.4 fl (81-100) 09/27/17 06:50 MCH 29.1 pg (27.0-31.0) 09/27/17 06:50 MCHC Differential 33.7 pg (28.0-36.0) 09/27/17 06:50 RDW 14.2 % (11.5-20.0) 09/27/17 06:50 Plt Count 247 Th/cmm (150-400) 09/27/17 06:50 MPV 7.2 fl 09/27/17 06:50 Neutrophils % 75.3 % (40.0-80.0) 09/27/17 06:50 Lymphocytes % 12.0 % (20.0-50.0) L 09/27/17 06:50 Monocytes % 7.4 % (2.0-10.0) 09/27/17 06:50 Eosinophils % 4.4 % (0.0-5.0) 09/27/17 06:50 Basophils % 0.9 % (0.0-2.0) 09/27/17 06:50 PT 10.4 SECONDS (9.5-11.5) 09/25/17 13:00 INR 1.00 (0.5-1.4) 09/25/17 13:00 PTT (Actin FS) 24.1 SECONDS (26.0-38.0) L 09/25/17 13:00 Sodium 137 mEq/L (136-145) 09/27/17 06:50 Potassium 4.0 mEq/L (3.5-5.1) 09/27/17 06:50 Chloride 103 mEq/L (98-107) 09/27/17 06:50 Carbon Dioxide 27.4 mEq/L (21.0-31.0) 09/27/17 06:50 Anion Gap 10.6 (7.0-16.0) 09/27/17 06:50 BUN 23 mg/dL (7-25) 09/27/17 06:50 Creatinine 0.7 mg/dL (0.6-1.2) 09/27/17 06:50 Est GFR ( Amer) TNP 09/27/17 06:50 Est GFR (Non-Af Amer) TNP 09/27/17 06:50 BUN/Creatinine Ratio 32.9 09/27/17 06:50 Glucose 80 mg/dL (70-105) 09/27/17 06:50 POC Glucose 80 MG/DL (70 - 105) 09/27/17 05:22 Whole Bld Lactic Acid 0.80 mmol/L (0.60-1.99) 09/25/17 13:00 Calcium 9.7 mg/dL (8.6-10.3) 09/27/17 06:50 Total Bilirubin 0.4 mg/dL (0.3-1.0) 09/25/17 13:00 AST 22 U/L (13-39) 09/25/17 13:00 ALT 13 U/L (7-52) 09/25/17 13:00 Alkaline Phosphatase 181 U/L (34-104) H 09/25/17 13:00 Creatine Kinase 22 U/L (30-223) L 09/25/17 13:00 Troponin I 0.01 ng/mL (0.01-0.05) 09/25/17 13:00 Total Protein 6.9 gm/dL (6.0-8.3) 09/25/17 13:00 Albumin 3.6 gm/dL (3.7-5.3) L 09/25/17 13:00 Globulin 3.3 gm/dL 09/25/17 13:00 Albumin/Globulin Ratio 1.1 (1.0-1.8) 09/25/17 13:00 - Physical Exam Vitals and I&O: Vital Signs Temp 98.2 F 09/27/17 04:00 Pulse 70 09/27/17 04:00 Resp 18 09/27/17 04:00 BP 110/60 09/27/17 04:00 Pulse Ox 97 09/27/17 04:00 Intake & Output 09/26/17 09/27/17 09/27/17 18:59 06:59 18:59 Intake Total 560 240 Output Total 150 100 Balance 410 140 Weight (lbs) 53.524 kg 53.524 kg 53.524 kg Intake: Oral 560 240 Output: Stool 150 100 Other: # Voids 3 2 Stool Characteristics Liquid Brown Weight Source Bedscale Bedscale Estimated Active Medications: Current Medications Al Hydrox/Mg Hydrox/Simethicone (Maalox) 30 ml PO Q6H PRN PRN Reason: Upset Stomach / Indigestion Stop: 11/25/17 09:43 Ascorbic Acid (Vitamin C) 500 mg PO BID [facility] Stop: 11/25/17 16:59 Last Admin: 09/27/17 08:36 Dose: Not Given Calcium/Vitamin D (Oscal W/Vitamin D) 1 tab PO DAILY [facility] Stop: 11/25/17 09:59 Last Admin: 09/27/17 08:37 Dose: Not Given Ferrous Sulfate (Iron) 325 mg PO BID [facility] Stop: 11/25/17 16:59 Last Admin: 09/27/17 08:37 Dose: Not Given Megestrol Acetate (Megace) 400 mg PO DAILY [facility] Stop: 11/25/17 09:59 Last Admin: 09/27/17 08:37 Dose: Not Given Miscellaneous (Amino Acids/Protein Hydrolys [Pro-Stat Sugar Free Liquid]) 30 ml PO TID [facility] Stop: 11/25/17 13:59 Last Admin: 09/27/17 08:36 Dose: Not Given Prochlorperazine Maleate (Compazine) 10 mg PO Q6H PRN; Protocol PRN Reason: NAUSEA/VOMITING Stop: 11/25/17 09:43 General: No acute distress HEENT: Atraumatic, PERRLA Neck: Supple, JVD Cardiovascular: Regular rate, Normal S1, Normal S2 Abdomen: Bowel sounds, Soft, Tender Neurological: Normal gait, Normal speech - Procedures Procedures: Procedures Procedure Code Date FLUOROSCOPY OF SUP VENA CAVA USING L OSM CONTRAST, GUIDANCE [id number] 12/11/16 INSERTION OF INFUSION DEV INTO SUP VENA CAVA, PERC APPROACH [id number] 12/11/16 REMOVAL OF INFUSION DEVICE FROM UPPER VEIN, OPEN APPROACH [id number] 12/11/16 REMOVAL OF INFUSION DEVICE FROM UPPER VEIN, PERC APPROACH [id number] 09/25/17 REMOVAL TUNNELED CV CATH [id number] 09/25/17 REMOVAL TUNNELED CV CATH [id number] 12/11/16 Assessment/Plan - Problem List Patient Problems: All Active Problems H/O malignant neoplasm of colon (Acute) Z85.038 H/O metastatic neoplastic disease (Acute) Z85.9 Left hand pain (Acute) M79.642 Myositis (Acute) M60.9 S/P radiation therapy (Acute) Z92.3 Status post chemoradiation (Acute) Z92.3, Z92.21 - Plan Plan: as per order sheet
[2017-09-28] MEDS: Calcium Carb/Vit D 500 mg/200 U Tab PO SCH (08:47)
[2017-09-28] MEDS: Non-Formulary Item 1 EA (Amino Acids/Protein Hydrolys [Pro-Stat Sugar Free Liquid] 30 ML) PO SCH ×2 (08:48→14:46)
[2017-09-28] MEDS: Multivitamin w/ Minerals Tab PO SCH (08:48)
[2017-09-28] MEDS: Ferrous Sulfate 325 MG TAB PO SCH (08:48)
--- NOTE | 2017-09-28 11:46 | General Progress Note ---
Subjective - Review of Systems Service Date: 09/28/17 Events since last encounter: has absorbable sutures, incision clean Objective - Results Result Diagrams: 09/27/17 06:50 09/27/17 06:50 Recent Labs: Laboratory Last Values WBC 7.8 Th/cmm (4.8-10.8) 09/27/17 06:50 RBC 4.28 Mil/cmm (3.80-5.20) 09/27/17 06:50 Hgb 12.5 gm/dL (12-16) 09/27/17 06:50 Hct 37.0 % (41.0-60) L 09/27/17 06:50 MCV 86.4 fl (81-100) 09/27/17 06:50 MCH 29.1 pg (27.0-31.0) 09/27/17 06:50 MCHC Differential 33.7 pg (28.0-36.0) 09/27/17 06:50 RDW 14.2 % (11.5-20.0) 09/27/17 06:50 Plt Count 247 Th/cmm (150-400) 09/27/17 06:50 MPV 7.2 fl 09/27/17 06:50 Neutrophils % 75.3 % (40.0-80.0) 09/27/17 06:50 Lymphocytes % 12.0 % (20.0-50.0) L 09/27/17 06:50 Monocytes % 7.4 % (2.0-10.0) 09/27/17 06:50 Eosinophils % 4.4 % (0.0-5.0) 09/27/17 06:50 Basophils % 0.9 % (0.0-2.0) 09/27/17 06:50 PT 10.4 SECONDS (9.5-11.5) 09/25/17 13:00 INR 1.00 (0.5-1.4) 09/25/17 13:00 PTT (Actin FS) 24.1 SECONDS (26.0-38.0) L 09/25/17 13:00 Sodium 137 mEq/L (136-145) 09/27/17 06:50 Potassium 4.0 mEq/L (3.5-5.1) 09/27/17 06:50 Chloride 103 mEq/L (98-107) 09/27/17 06:50 Carbon Dioxide 27.4 mEq/L (21.0-31.0) 09/27/17 06:50 Anion Gap 10.6 (7.0-16.0) 09/27/17 06:50 BUN 23 mg/dL (7-25) 09/27/17 06:50 Creatinine 0.7 mg/dL (0.6-1.2) 09/27/17 06:50 Est GFR ( Amer) TNP 09/27/17 06:50 Est GFR (Non-Af Amer) TNP 09/27/17 06:50 BUN/Creatinine Ratio 32.9 09/27/17 06:50 Glucose 80 mg/dL (70-105) 09/27/17 06:50 POC Glucose 80 MG/DL (70 - 105) 09/27/17 05:22 Whole Bld Lactic Acid 0.80 mmol/L (0.60-1.99) 09/25/17 13:00 Calcium 9.7 mg/dL (8.6-10.3) 09/27/17 06:50 Total Bilirubin 0.4 mg/dL (0.3-1.0) 09/25/17 13:00 AST 22 U/L (13-39) 09/25/17 13:00 ALT 13 U/L (7-52) 09/25/17 13:00 Alkaline Phosphatase 181 U/L (34-104) H 09/25/17 13:00 Creatine Kinase 22 U/L (30-223) L 09/25/17 13:00 Troponin I 0.01 ng/mL (0.01-0.05) 09/25/17 13:00 Total Protein 6.9 gm/dL (6.0-8.3) 09/25/17 13:00 Albumin 3.6 gm/dL (3.7-5.3) L 09/25/17 13:00 Globulin 3.3 gm/dL 09/25/17 13:00 Albumin/Globulin Ratio 1.1 (1.0-1.8) 09/25/17 13:00 - Physical Exam Vitals and I&O: Vital Signs Temp 96.1 F 09/28/17 07:43 Pulse 72 09/28/17 07:43 Resp 18 09/28/17 07:43 BP 102/53 09/28/17 07:43 Pulse Ox 98 09/28/17 07:43 Intake & Output 09/27/17 09/28/17 09/28/17 18:59 06:59 18:59 Weight (lbs) 53.524 kg 54.431 kg Other: Stool Characteristics Liquid Brown Weight Source Estimated Bedscale Active Medications: Current Medications Al Hydrox/Mg Hydrox/Simethicone (Maalox) 30 ml PO Q6H PRN PRN Reason: Upset Stomach / Indigestion Stop: 11/25/17 09:43 Ascorbic Acid (Vitamin C) 500 mg PO BID [facility] Stop: 11/25/17 16:59 Last Admin: 09/28/17 08:47 Dose: Not Given Calcium/Vitamin D (Oscal W/Vitamin D) 1 tab PO DAILY [facility] Stop: 11/25/17 09:59 Last Admin: 09/28/17 08:47 Dose: Not Given Ferrous Sulfate (Iron) 325 mg PO BID [facility] Stop: 11/25/17 16:59 Last Admin: 09/28/17 08:48 Dose: Not Given Megestrol Acetate (Megace) 400 mg PO DAILY [facility] Stop: 11/25/17 09:59 Last Admin: 09/28/17 08:48 Dose: Not Given Miscellaneous (Amino Acids/Protein Hydrolys [Pro-Stat Sugar Free Liquid]) 30 ml PO TID [facility] Stop: 11/25/17 13:59 Last Admin: 09/28/17 08:48 Dose: Not Given Prochlorperazine Maleate (Compazine) 10 mg PO Q6H PRN; Protocol PRN Reason: NAUSEA/VOMITING Stop: 11/25/17 09:43 General: No acute distress HEENT: Atraumatic, PERRLA Neck: Supple, JVD Cardiovascular: Regular rate, Normal S1, Normal S2 Abdomen: Bowel sounds, Soft, Tender Neurological: Normal gait, Normal speech - Procedures Procedures: Procedures Procedure Code Date FLUOROSCOPY OF SUP VENA CAVA USING L OSM CONTRAST, GUIDANCE [id number] 12/11/16 INSERTION OF INFUSION DEV INTO SUP VENA CAVA, PERC APPROACH [id number] 12/11/16 REMOVAL OF INFUSION DEVICE FROM UPPER VEIN, OPEN APPROACH [id number] 12/11/16 REMOVAL OF INFUSION DEVICE FROM UPPER VEIN, PERC APPROACH [id number] 09/25/17 REMOVAL TUNNELED CV CATH [id number] 09/25/17 REMOVAL TUNNELED CV CATH [id number] 12/11/16 Assessment/Plan - Problem List Patient Problems: All Active Problems H/O malignant neoplasm of colon (Acute) Z85.038 H/O metastatic neoplastic disease (Acute) Z85.9 Left hand pain (Acute) M79.642 Myositis (Acute) M60.9 S/P radiation therapy (Acute) Z92.3 Status post chemoradiation (Acute) Z92.3, Z92.21 Nutritional Asmnt/Malnutr-PDOC - Dietary Evaluation Malnutrition Findings (Please click <Entered> for more info): Nutritional Asmnt/Malnutrition Start: 09/27/17 13: 36 Text: Status: Complete Freq: Protocol: Document 09/27/17 13:36 LCMAKG (Rec: 09/27/17 13:46 LCDG [id number]) Nutritional Asmnt/Malnutrition Patient General Information Nutritional Screening Moderate Risk Diagnosis Left hand myositis Pertinent Medical Hx/Surgical Hx HTN, dyslipidemia, colon CA, central line, colostomy bag Subjective Information Consult received for pt request. Pt seen lying in bed at time of visit, awake and alert, lunch tray on bed table . Pt has no teeth noted. Pt was not satisfied with pureed food, but pt stated she tried [facility] soft ground diet before but not able to tolerated. Pt did not like to eat the lunch, requested Boost and apple jucie. Current Diet Order/ Nutrition Support pureed Pertinent Medications vit C, oscal w/vitamin D, iron , megace Pertinent Labs 09/25, 09/27 nutrition related labs WNL Nutritional Hx/Data Height 1.63 m Height (Calculated Centimeters) 162.6 Current Weight (lbs) 53.524 kg Weight (Calculated Kilograms) 53.5 Weight (Calculated Grams) 56902.9 [place] Body Weight 120 Body Mass Index (BMI) 20.2 Weight Status Approriate GI Symptoms GI Symptoms None Last BM not indicated Difficult in: None Skin Integrity/Comment: PATEINT HAS SURGICAL COLOSTOMY STOMA LOOKS DRY INTACT. Current %PO Poor (25-49%) Estimated Nutritional Goals BEE in Kcals: Using Current wt Calories/Kcals/Kg 25-30 Kcals Calculated 7167-1517 Protein: Using Current wt Protein g/k Protein Calculated 54 Fluid: ml 1350-1620ml (1ml/kcal) Nutritional Problem 1. Problem Problem inadequate food intake Etiology pt being picky about food Signs/Symptoms: PO intake <30% Malnutrition Alert Protein-Calorie Malnutrition N/A Is there a minimum of two criteria No selected? Query Text:Check all the applicable criteria. A minimum of two criteria are recommended for diagnosis of either severe or non-severe malnutrition. Malnutrition Related to Morbid Obesity Malnutrition related to morbid obesity No Intervention/Recommendation Comments 1. Continue with pureed diet as ordered. Food preference updated in diet profile. 2. Add Boost BID with meals per pt request. RN notified, will ask doctor. 3. Monitor PO intake, wt, labs and skin integrity 4. F/U as high risk in 2-3 days, /-/ Expected Outcomes/Goals Expected Outcomes/Goals 1. PO intake to meet at least 75% of nutritional needs. 2. Wt stability, skin to remain intact, labs to approach WNL.
--- NOTE | 2017-09-28 12:31 | Diagnostic Imaging Report ---
MRI left hand without IV contrast History: Pain, possible myositis Comparison: None Technique: Multiplanar T1, STIR, and gradient echo sequences of the left hand were obtained without IV contrast. Findings: The regional extensor and flexor tendons are intact. [id number]-[id number] degenerative changes are noted. There is osseous edema seen along the first distal phalanx. There is slight irregularity of the distal phalanx cortex seen at the dorsal aspect. Surrounding subcutaneous edema is also noted. IMPRESSION: Abnormal bone marrow edema of the first distal phalanx. There is slight irregularity of the cortex. The cause of the edema may be due to etiologies such as a possible recent fracture or osteomyelitis. Clinical correlation is recommended. X-ray correlation may also be helpful. Surrounding subcutaneous edema is noted which may be posttraumatic or due to cellulitis.
== END 2017-09-28 15:50 | DRG 206 ==
LOC: ER 12:21 → MSI 18:22
PROVIDERS: ADMIT Internal Medicine; ATTEND Internal Medicine
PROC: 0JPV0WZ Removal of Totally Implantable Vascular Access Device from Upper Extremity Subcutaneous Tissue and Fascia, Open Approach (ICD-10-PCS; principal; 2017-09-27)
DX: T82.514A Breakdown (mechanical) of infusion catheter, initial encounter (principal); D64.9 Anemia, unspecified; B07.9 Viral wart, unspecified; M60.9 Myositis, unspecified; E78.5 Hyperlipidemia, unspecified; I10 Essential (primary) hypertension; Z66 Do not resuscitate; Y83.8 Other surgical procedures as the cause of abnormal reaction of the patient, or of later complication, without mention of misadventure at the time of the procedure; Y92.89 Other specified places as the place of occurrence of the external cause; Z85.038 Personal history of other malignant neoplasm of large intestine; Z93.3 Colostomy status; Z82.49 Family history of ischemic heart disease and other diseases of the circulatory system
CPT/HCPCS: 36415-UA; 71045-TC; 73218-TC-LT; 80048-TC; 80053-TC; 82550-TC; 82948-90; 83605; 84484-TC; 85025-TC; 85610-TC; 85730-TC; 87070-90; 93005; J2250; V2790; Z7610

== ENCOUNTER 2018-02-03 12:45 | Inpatient (IN) | payer MEDICAID ==
[2018-02-03] MEDS ORDERED: D5LR 1,000 ML IV ONE (12:51)
[2018-02-03 13:06] LABS: % EOSINOPHILS 0.6 % (0.0-5.0); % MONOCYTES 2.7 % (2.0-10.0); % NEUTROPHILS 89.7 % (40.0-80.0); EOSINOPHILE ABSOLUTE 0.1 Th/cmm (0.1-0.4); HEMATOCRIT 39.3 % (41.0-60); LYMPHOCYTE ABSOLUTE 0.8 Th/cmm (1.5-3.0); MEAN CELL VOLUME 84.8 fl (81-100); MEAN CORPUSCULAR HEMOGLOBIN 28.1 pg (27.0-31.0); MEAN CORPUSCULAR HGB CONC 33.1 pg (28.0-36.0); MEAN PLATELET VOLUME 6.7 fl; MONOCYTE ABSOLUTE 0.3 Th/cmm (0.3-1.0); NEUTROPHILE ABSOLUTE 10.9 Th/cmm (1.8-8.0); PLATELET COUNT 351 Th/cmm (150-400); RED BLOOD COUNT 4.64 Mil/cmm (3.80-5.20); RED CELL DISTRIBUTION WIDTH 15.8 % (11.5-20.0); WHITE BLOOD COUNT 12.1 Th/cmm (4.8-10.8)
[2018-02-03 13:22] LABS: ALBUMIN 3.5 gm/dL (3.7-5.3); ALKALINE PHOSPHATASE 166 U/L (34-104); AMYLASE SERUM 44 U/L (29-103); ANION GAP 17.1 (7.0-16.0); BILIRUBIN,TOTAL 0.7 mg/dL (0.3-1.0); BUN - UREA NITROGEN 18 mg/dL (7-25); CALCIUM SERUM 9.2 mg/dL (8.6-10.3); CARBON DIOXIDE 22.8 mEq/L (21.0-31.0); CHLORIDE 92 mEq/L (98-107); CREATININE - SERUM 0.5 mg/dL (0.6-1.2); GLUCOSE 92 mg/dL (70-105); LIPASE 16 U/L (11-82); MAGNESIUM 2.1 mg/dL (1.9-2.7); POTASSIUM SERUM 3.9 mEq/L (3.5-5.1); SGOT 18 U/L (13-39); SGPT/ALT 8 U/L (7-52); SODIUM SERUM 128 mEq/L (136-145); TOTAL PROTEIN,SERUM 6.9 gm/dL (6.0-8.3)
--- NOTE | 2018-02-03 13:45 | ED Physician Chart ---
ED Chief Complaint/HPI - Patient Information Date Seen:: 02/03/18 Time Seen:: 13:30 Chief Complaint:: failure to thrive History of Present Illness:: failure to thrive. states that food doesn't taste the same. Allergies:: Allergies Allergy/AdvReac Type Severity Reaction Status Date / Time No Known Allergies Allergy Verified 02/03/18 12:55 Vitals:: Vital Signs - 8 hr 02/03/18 13:30 Temp 98.2 F HR 98 RR 18 BP 117/74 O2 Sat % 98 Historian:: Patient, EMS Review:: Nurse's Note Reviewed, Transfer documents Reviewed ED Review of Systems - Review of Systems General/Constitutional: No fever, No chills, Weight loss, Weakness, No diaphoresis, No edema, Loss of appetite Skin: Rash Head: No headache, No light-headedness Eyes: No loss of vision, No pain, No diplopia ENT: No earache, No nasal drainage, No sore throat, No tinnitus Neck: No neck pain, No swelling, No thyromegaly, No stiffness, No mass noted Cardio Vascular: No chest pain, No palpitations, No PND, No orthopnea, No edema Pulmonary: No SOB, No cough, No sputum, No wheezing GI: No nausea, No vomiting, No diarrhea, No pain, No melena, No hematochezia, No constipation, No hematemesis G/U: No dysuria, No frequency, No hematuria Musculoskeletal: No bone or joint pain, No back pain, No muscle pain Endocrine: No polyuria, No polydipsia Psychiatric: No prior psych history, No depression, No anxiety, No suicidal ideation Hematopoietic: No bruising, No lymphadenopathy Allergic/Immuno: No urticaria, No angioedema Neurological: No syncope, No focal symptoms, No weakness, No paresthesia, No headache, No seizure, No dizziness, No confusion, No vertigo ED Past Medical History - Past Medical History Obtainable: Yes Past Medical History: HTN, Dyslipidemia, Other (colon cancer) Surgical History: other (colostomy) Family Medical History - Family Member mother History Unknown: Yes Ethnicity: Non- Living Status: Hx Family Cancer: Yes (Unknown kind) Hx Family Coronary Artery Disease: No Hx Family Congestive Heart Failure: No Hx Family Hypertension: No Hx Family Stroke: No Hx Family Diabetes: No Hx Family Seizures: No Hx Family Dementia: No Hx Family AIDS: No Hx Family HIV: No Hx Family COPD: No Hx Family Hepatitis: No Hx Family Psychiatric Problems: No Hx Family Tuberculosis: No ED Physical Exam - Physical Examination General/Constitutional: Awake Other Gen/Cons comments:: frail and chronically ill appearing. Head: Atraumatic Eyes: Lids, conjuctiva normal Other Skin comments:: thrush on tongue and dry mucous membranes. yeast between her toes. poor skin turgor. ENMT: External ears, nose nl Neck: Nontender, Full ROM w/o pain, No JVD, No nuchal rigidity, No bruit, No mass, No stridor Respiratory: Nl effort/Exclusion, Clear to Auscultation, No Wheeze/Rhonchi/Rales Cardio Vascular: RRR, No murmur, gallop, rubs, NL S1 S2 GI: No tenderness/rebounding/guarding, No organomegaly, No hernia, Normal BS's, Nondistended Other GI comments:: colostomy bag intact. : No CVA tenderness Extremities: No tenderness or effusion Other Extremities comments:: yeast between her toes on both feet. Neuro/Psych: Alert/oriented ED Labs/Radiology/EKG Results - Lab Results Results: Laboratory Tests 02/03/18 02/03/18 12:58 12:58 WBC 12.1 H RBC 4.64 Hgb 13.0 Hct 39.3 L MCV 84.8 MCH 28.1 MCHC Differential 33.1 RDW 15.8 Plt Count 351 MPV 6.7 Neutrophils % 89.7 H Lymphocytes % 7.0 L Monocytes % 2.7 Eosinophils % 0.6 Basophils % 0.0 Neutrophils (Manual) Not Reportable Sodium 128 L Potassium 3.9 Chloride 92 L Carbon Dioxide 22.8 Anion Gap 17.1 H BUN 18 Creatinine 0.5 L Est GFR ( Amer) TNP Est GFR (Non-Af Amer) TNP BUN/Creatinine Ratio 36.0 Glucose 92 Calcium 9.2 Phosphorus 2.0 L Magnesium 2.1 Total Bilirubin 0.7 AST 18 ALT 8 Alkaline Phosphatase 166 H Total Protein 6.9 Albumin 3.5 L Globulin 3.4 Albumin/Globulin Ratio 1.0 Amylase 44 Lipase 16 ED Septic Shock - . Is Septic Shock (SBP<90, OR Lactate>4 mmol\L) present?: No - <6hrs of presentation: Vital Signs: Vital Signs - 8 hr 02/03/18 13:30 Temp 98.2 F HR 98 RR 18 BP 117/74 O2 Sat % 98 ED Reassessment (Disposition) - Reassessment Reassessment Condition:: Improved - Diagnosis Diagnosis:: Failure to Thrive Dehydration Oral thrush Yeast of areas between feet Colon Cancer HTN Dyslipidemia - Patient Disposition Discharge/Transfer:: Acute Care w/in this hosp Admitted to:: Med/Surg Condition at Disposition:: Stable, Improved
[2018-02-03] MEDS ORDERED: Maalox 30 mL Cup PO PRN (16:59)
[2018-02-03] MEDS: Ferrous Sulfate 325 MG TAB PO SCH (17:18)
[2018-02-03] MEDS: D5-0.45NS 1,000 ML IV SCH (17:18)
--- NOTE | 2018-02-03 17:30 | History & Physical ---
ADMIT DATE: 02/03/2018 HISTORY OF PRESENT ILLNESS: This is a very well-known patient for me, elderly female patient. The patient is known to have a history of colon CA that was resected and had colostomy. The patient also had chemotherapy and radiation therapy. The patient is a resident of [facility]. Apparently, the patient has been not eating and has been losing a lot of weight. The patient was transferred for failure to thrive and for further evaluation as well as consideration of the PEG. REVIEW OF SYSTEMS: The patient's system review is essentially negative except not eating, drinking, and poor appetite. PAST MEDICAL HISTORY: History of colon cancer with resection and status post colostomy. PHYSICAL EXAMINATION: GENERAL: The patient is an elderly female, chronically ill looking. HEAD: Normal. ENT: Normal. NECK: Supple, nontender. LUNGS: Clear. CARDIOVASCULAR SYSTEM: S1, S2 heard. ABDOMEN: Soft. Bowel sounds are heard. CENTRAL NERVOUS SYSTEM: Grossly normal. LABORATORY DATA: White count was elevated at 12.4 and awaiting for the urine report. Temperature 98.2, respiratory rate was normal. DIAGNOSES: Failure to thrive, significant weight loss, possible metastatic lesions, history of colon cancer, status post colostomy and leukocytosis was made. The patient will be given 1 gram of Rocephin IV and allow Dr. Brock to see the patient. Also, sodium is low at 128. She has encephalopathy. The patient is going to also have Dr. Bello see the patient and I will follow the patient. JOB# [id number]
[2018-02-03 18:05] VITALS: BP 149/69
--- NOTE | 2018-02-04 03:32 | Consultation ---
DATE OF CONSULTATION: 02/03/2018 INFECTIOUS DISEASE CONSULTATION NOTE REFERRING PHYSICIAN: Rosa M Choudhury MD REASON FOR CONSULTATION: Leukocytosis. HISTORY OF PRESENT ILLNESS: The patient is an 82-year-old female with a past medical history of hypertension, colon CA had received chemotherapy recently status post colectomy and colostomy, admitted from nursing facility yesterday 02/02/2018 for anorexia and loss of weight. The patient was admitted with the diagnosis of failure to thrive. On initial evaluation, the temperature was 98.2 degree Fahrenheit and WBC count was 12,100. ID consult was called for the leukocytosis. PAST MEDICAL HISTORY: Includes hypertension and colon CA. PAST SURGICAL HISTORY: Colectomy and colostomy. FAMILY HISTORY: Noncontributory. SOCIAL HISTORY: The patient lives at nursing facility. No history of smoking, alcohol or drug use. REVIEW OF SYSTEMS: The patient is a poor historian. GENERAL: The patient has no fever, no chills. Has generalized weakness, has loss of weight. HEENT: No diplopia, no photophobia, no sore throat. RESPIRATORY: No cough, no shortness of breath. CARDIOVASCULAR: No chest pain or palpitation. GASTROINTESTINAL: No nausea, no vomiting, no diarrhea, no constipation. GENITOURINARY: No dysuria. NEUROLOGIC: No headache, no dizziness, no focal weakness. PHYSICAL EXAMINATION: VITAL SIGNS: Shows temperature is 97.4 degrees Fahrenheit, pulse 97, respirations 18, blood pressure 122/73. GENERAL: The patient is comfortable, cachectic, not in acute distress. HEENT: Head is normocephalic, atraumatic. Oral cavity moist, pink tongue. Eyes: Pallor is present. EYES: No pallor, no icterus. PERRLA, EOMI. NECK: Supple, no JVD, no carotid bruit. Trachea in midline. CHEST: Bilateral vesicular breath sounds. No crackles or wheezing. HEART: S1, S2 within normal limits. Regular rhythm. No murmur, no gallop. ABDOMEN: Soft, nontender, nondistended. Bowel sounds present. Colostomy site is clear. EXTREMITIES: No cyanosis, no clubbing, no edema. NEUROLOGICAL: Alert and awake. LABORATORY DATA: Current lab shows WBC count is 12,100, hemoglobin 13, hematocrit 39.3, platelets are 351,000, neutrophils 89.7%. Sodium is 128, potassium 3.9, chloride 92, bicarbonate is 23, BUN is 18, creatinine 0.5, glucose is 92. IMPRESSION: 1. Leukocytosis, reactive versus sepsis. 2. Failure to thrive. 3. Protein calorie malnutrition. 4. Colon cancer. 5. Status post colostomy and colectomy. 6. History of hypertension. RECOMMENDATIONS: Continue Rocephin IV. Check UA, urine culture. Check blood cultures and chest x-ray. Thank you, Dr. Choudhury for involving me in taking care of this patient. JOB# [id number]
[2018-02-04 06:56] LABS: INR 1.21 (0.5-1.4); PROTHROMBIN TIME (TEST) 12.5 SECONDS (9.5-11.5)
[2018-02-04 06:59] LABS: URINE SOURCE RANDOM
[2018-02-04] MEDS: D5-0.45NS 1,000 ML IV SCH (07:11)
[2018-02-04 07:12] LABS: BUN - UREA NITROGEN 15 mg/dL (7-25); CALCIUM SERUM 9.3 mg/dL (8.6-10.3); CARBON DIOXIDE 23.9 mEq/L (21.0-31.0); CHLORIDE 91 mEq/L (98-107); CREATININE - SERUM 0.4 mg/dL (0.6-1.2); GLUCOSE 143 mg/dL (70-105); POTASSIUM SERUM 3.9 mEq/L (3.5-5.1); SODIUM SERUM 127 mEq/L (136-145)
[2018-02-04 07:18] LABS: URINE BILIRUBIN NEGATIVE (NEGATIVE); URINE BLOOD TRACE (NEGATIVE); URINE GLUCOSE (UA) NEGATIVE (NEGATIVE); URINE KETONE 15 mg/dL (NEGATIVE); URINE LEUKOCYTE ESTERASE TRACE (NEGATIVE); URINE MICROSCOPIC INDICATED? YES; URINE NITRATE NEGATIVE (NEGATIVE); URINE PH 6.5 (4.6 - 8.0); URINE PROTEIN NEGATIVE (NEGATIVE); URINE UROBILINOGEN 0.2 E.U./dL (0.2 - 1.0)
[2018-02-04 07:52] LABS: URINE CLARITY SLIGHT CLOUDY (CLEAR); URINE COLOR YELLOW
[2018-02-04 07:53] LABS: URINE BACTERIA FEW /hpf (NONE SEEN); URINE EPITHELIAL CELLS FEW /lpf (FEW); URINE RBC 0-2 /hpf (0-5)
--- NOTE | 2018-02-04 08:09 | Diagnostic Imaging Report ---
Portable chest x-ray HISTORY: Cough Compared to prior exam of February 03, 2018, the heart size is normal. Atherosclerotic calcification seen in the aorta. No acute focal pulmonary processes. IMPRESSION: 1. No change from February 03, 2018. No acute focal pulmonary processes
--- NOTE | 2018-02-04 08:30 | Diagnostic Imaging Report ---
Portable chest x-ray HISTORY: Shortness of breath The overall heart size is normal. Atherosclerotic calcification seen in the aorta. No acute focal pulmonary processes. IMPRESSION: 1. No acute abnormalities 2. Atherosclerotic vascular changes
[2018-02-04 08:32] LABS: HEMATOCRIT 42.4 % (41.0-60); MEAN CELL VOLUME 86.1 fl (81-100); MEAN CORPUSCULAR HEMOGLOBIN 28.4 pg (27.0-31.0); MEAN PLATELET VOLUME 7.7 fl; PLATELET COUNT 322 Th/cmm (150-400); RED BLOOD COUNT 4.93 Mil/cmm (3.80-5.20); RED CELL DISTRIBUTION WIDTH 15.3 % (11.5-20.0)
[2018-02-04 08:41] LABS: BAND NEUTROPHILE 2 % (0-10); EOSINOPHIL 2 % (0-5); LYMPHOCYTE 10 % (20-50); MONOCYTE 6 % (2-10); NEUTROPHILS 82 % (40-80)
[2018-02-04 08:42] LABS: PLATELET ESTIMATE ADEQUATE (NORMAL)
[2018-02-04] MEDS: Multivitamin w/ Minerals Tab PO SCH (09:59)
[2018-02-04] MEDS: Ferrous Sulfate 325 MG TAB PO SCH ×2 (09:59→17:05)
[2018-02-04] MEDS: Calcium Carb/Vit D 500 mg/200 U Tab PO SCH (09:59)
--- NOTE | 2018-02-04 11:46 | General Progress Note ---
Subjective - Review of Systems Service Date: 02/04/18 Events since last encounter: patient admitted for failure to thrive weight loss PT IS VERY WEEK SEEN BY ONCHO/ID DOC AND GI POSSIBLE PEG Objective - Results Result Diagrams: 02/04/18 05:50 02/04/18 05:50 Recent Labs: Laboratory Last Values WBC 7.0 Th/cmm (4.8-10.8) D 02/04/18 05:50 RBC 4.93 Mil/cmm (3.80-5.20) 02/04/18 05:50 Hgb 14.0 gm/dL (12-16) 02/04/18 05:50 Hct 42.4 % (41.0-60) 02/04/18 05:50 MCV 86.1 fl (81-100) 02/04/18 05:50 MCH 28.4 pg (27.0-31.0) 02/04/18 05:50 MCHC Differential 33.0 pg (28.0-36.0) 02/04/18 05:50 RDW 15.3 % (11.5-20.0) 02/04/18 05:50 Plt Count 322 Th/cmm (150-400) 02/04/18 05:50 MPV 7.7 fl 02/04/18 05:50 Add Manual Diff YES 02/04/18 05:50 Neutrophils % 89.7 % (40.0-80.0) H 02/03/18 12:58 Band Neutrophils % 2 % (0-10) 02/04/18 05:50 Lymphocytes % 7.0 % (20.0-50.0) L 02/03/18 12:58 Monocytes % 2.7 % (2.0-10.0) 02/03/18 12:58 Eosinophils % 0.6 % (0.0-5.0) 02/03/18 12:58 Basophils % 0.0 % (0.0-2.0) 02/03/18 12:58 Neutrophils (Manual) 82 % (40-80) H 02/04/18 05:50 Lymphocytes 10 % (20-50) L 02/04/18 05:50 Monocytes 6 % (2-10) 02/04/18 05:50 Eosinophils 2 % (0-5) 02/04/18 05:50 Platelet Estimate ADEQUATE (NORMAL) 02/04/18 05:50 PT 12.5 SECONDS (9.5-11.5) H 02/04/18 05:50 INR 1.21 (0.5-1.4) 02/04/18 05:50 Sodium 127 mEq/L (136-145) L 02/04/18 05:50 Potassium 3.9 mEq/L (3.5-5.1) 02/04/18 05:50 Chloride 91 mEq/L (98-107) L 02/04/18 05:50 Carbon Dioxide 23.9 mEq/L (21.0-31.0) 02/04/18 05:50 Anion Gap 16.0 (7.0-16.0) 02/04/18 05:50 BUN 15 mg/dL (7-25) 02/04/18 05:50 Creatinine 0.4 mg/dL (0.6-1.2) L 02/04/18 05:50 Est GFR ( Amer) TNP 02/04/18 05:50 Est GFR (Non-Af Amer) TNP 02/04/18 05:50 BUN/Creatinine Ratio 37.5 02/04/18 05:50 Glucose 143 mg/dL (70-105) H 02/04/18 05:50 Calcium 9.3 mg/dL (8.6-10.3) 02/04/18 05:50 Phosphorus 2.0 mg/dL (2.5-5.0) L 02/03/18 12:58 Magnesium 2.1 mg/dL (1.9-2.7) 02/03/18 12:58 Total Bilirubin 0.7 mg/dL (0.3-1.0) 02/03/18 12:58 AST 18 U/L (13-39) 02/03/18 12:58 ALT 8 U/L (7-52) 02/03/18 12:58 Alkaline Phosphatase 166 U/L (34-104) H 02/03/18 12:58 Total Protein 6.9 gm/dL (6.0-8.3) 02/03/18 12:58 Albumin 3.5 gm/dL (3.7-5.3) L 02/03/18 12:58 Globulin 3.4 gm/dL 02/03/18 12:58 Albumin/Globulin Ratio 1.0 (1.0-1.8) 02/03/18 12:58 Amylase 44 U/L (29-103) 02/03/18 12:58 Lipase 16 U/L (11-82) 02/03/18 12:58 Urine Source RANDOM 02/04/18 04:30 Urine Color YELLOW 02/04/18 04:30 Urine Clarity SLIGHT CLOUDY (CLEAR) H 02/04/18 04:30 Urine pH 6.5 (4.6 - 8.0) 02/04/18 04:30 Ur Specific [place] 1.010 (1.005-1.030) 02/04/18 04:30 Urine Protein NEGATIVE mg/dL (NEGATIVE) 02/04/18 04:30 Urine Glucose (UA) NEGATIVE mg/dL (NEGATIVE) 02/04/18 04:30 Urine Ketones 15 mg/dL (NEGATIVE) H 02/04/18 04:30 Urine Blood TRACE (NEGATIVE) 02/04/18 04:30 Urine Nitrate NEGATIVE (NEGATIVE) 02/04/18 04:30 Urine Bilirubin NEGATIVE (NEGATIVE) 02/04/18 04:30 Urine Urobilinogen 0.2 E.U./dL (0.2 - 1.0) 02/04/18 04:30 Ur Leukocyte Esterase TRACE (NEGATIVE) H 02/04/18 04:30 Urine RBC 0-2 /hpf (0-5) 02/04/18 04:30 Urine WBC 2-5 /hpf (0-5) 02/04/18 04:30 Ur Epithelial Cells FEW /lpf (FEW) 02/04/18 04:30 Urine Bacteria FEW /hpf (NONE SEEN) 02/04/18 04:30 - Physical Exam Vitals and I&O: Vital Signs Temp 96.8 F 02/04/18 08:00 Pulse 90 02/04/18 08:00 Resp 20 02/04/18 08:00 BP 126/70 02/04/18 08:00 Pulse Ox 18 02/04/18 08:00 Intake & Output 02/03/18 02/04/18 02/04/18 18:59 06:59 18:59 Intake Total 50 1120 Output Total 75 200 Balance -25 920 Weight (lbs) 43.273 kg 43.001 kg Intake: Intake, IV Amount 1000 D5-0.45NS 1,000 ml @ 75 1000 mls/hr IV .[id number] [facility] Rx #:[id number] Oral 50 120 Output: Urine 200 Stool 75 Other: # Voids 1 Stool Characteristics Liquid Liquid [facility] Active Medications: Current Medications Acetaminophen (Tylenol) 650 mg PO Q6H PRN PRN Reason: Pain (Moderate) Stop: 04/04/18 16:58 Al Hydrox/Mg Hydrox/Simethicone (Maalox) 30 ml PO Q6H PRN PRN Reason: Upset Stomach / Indigestion Stop: 04/04/18 16:58 Ascorbic Acid (Vitamin C) 500 mg PO BID [facility] Stop: 04/04/18 16:59 Last Admin: 02/04/18 09:59 Dose: 500 mg Calcium/Vitamin D (Oscal W/Vitamin D) 1 tab PO DAILY [facility] Stop: 04/05/18 08:59 Last Admin: 02/04/18 09:59 Dose: 1 tab Ferrous Sulfate (Iron) 325 mg PO BID [facility] Stop: 04/04/18 16:59 Last Admin: 02/04/18 09:59 Dose: 325 mg Dextrose/Sodium Chloride (D5-0.45ns) 1,000 mls @ 75 mls/hr IV .[id number] [facility] Stop: 04/04/18 14:44 Last Admin: 02/04/18 07:11 Dose: 75 mls/hr Megestrol Acetate (Megace) 400 mg PO DAILY [facility] Stop: 04/04/18 17:59 Last Admin: 02/04/18 09:58 Dose: 400 mg Nystatin (Nystatin) 100,000 units PO TID [facility] Stop: 04/04/18 20:59 Last Admin: 02/04/18 09:59 Dose: 100,000 units Prochlorperazine Maleate (Compazine) 10 mg PO Q6H PRN; Protocol PRN Reason: NAUSEA/VOMITING Stop: 04/04/18 16:58 General: Alert, No acute distress, Other (DEHYDRATED CACHECTIC) HEENT: Atraumatic Neck: Supple, JVD Cardiovascular: Regular rate Abdomen: Soft - Procedures Procedures: Procedures Procedure Code Date FLUOROSCOPY OF SUP VENA CAVA USING L OSM CONTRAST, GUIDANCE [id number] 12/11/16 INSERTION OF INFUSION DEV INTO SUP VENA CAVA, PERC APPROACH [id number] 12/11/16 REMOVAL OF INFUSION DEVICE FROM UPPER VEIN, OPEN APPROACH [id number] 12/11/16 REMOVAL OF TIVAD FROM TRUNK SUBCU/FASCIA, OPEN APPROACH [id number] 09/25/17 REMOVAL TUNNELED CV CATH [id number] 09/25/17 REMOVAL TUNNELED CV CATH [id number] 12/11/16 Assessment/Plan - Problem List Patient Problems: All Active Problems Failure to thrive (Acute) [id number] H/O colectomy (Acute) Z90.49 HTN (hypertension) (Acute) I10 Leukocytosis (Acute) D72.829 Malnutrition (Acute) E46 S/P colostomy (Acute) Z93.3 UTI (urinary tract infection) (Acute) - Plan Plan: EGD/PEG
--- NOTE | 2018-02-04 13:18 | Consultation ---
DATE OF CONSULTATION: HISTORY OF PRESENT ILLNESS: This consult was obtained through the courtesy of Dr. Choudhury for this 82-year-old with a history of colon cancer, status post resection, possibly with adjusting part of the cervix and then was a colostomy, who was transferred to the hospital from the half-way for failure to thrive and dysphagia. The patient had colon cancer. She does not know when and she has received radiation and chemotherapy that she cannot walk. The patient has been living in a half-way. She is not able to tolerate the food. She cannot swallow solid food, she eats pureed and then she vomits it up again. PAST MEDICAL HISTORY: Hypertension, history of colon cancer, history of hypertension, arthritis. PAST SURGICAL HISTORY: Colon resection and colostomy. SOCIAL HISTORY: Ex-smoker. Nonalcoholic IV drug abuse. FAMILY HISTORY: Noncontributory. ALLERGIES: No known drug allergy. MEDICATIONS: The patient is on Tylenol, Maalox, vitamin C, Os-Christophe, iron, Nystatin, and Compazine. REVIEW OF SYSTEMS: Few pounds of weight loss, vomiting and regurgitation. PHYSICAL EXAMINATION: GENERAL: The patient is awake, oriented to self and place, in mild distress. VITAL SIGNS: Blood pressure is 117/74, heart rate 98, respiratory rate 18, temperature is 98.2. CHEST: Good air entry. LUNGS: Clear to auscultation. CARDIOVASCULAR: Regular rate and rhythm. No murmur or gallop. ABDOMEN: Soft, positive bowel sounds. The scar of previous surgery. There is colostomy bag. EXTREMITIES: Lower extremities, some edematous changes. CENTRAL NERVOUS SYSTEM: The patient is able to move 4 extremities, but very weak in the lower abdomen. LABORATORY DATA: White count 12.1, H and H of 13 and 39.3 with platelets of 351. Chemistry showed sodium of 128, BUN and creatinine of 18 and 0.5. Liver enzymes are normal except alkaline phosphatase 166. IMPRESSION: An 82-year-old status post colostomy, now with failure to thrive, regurgitation, decreased oral intake and vomiting, rule out Isa esophagitis versus esophagitis versus gastroesophageal reflux disease and esophageal stricture versus upper GI malignancy. RECOMMENDATIONS: 1. Liquid diet as tolerated. 2. Endoscopy in the morning. 3. Further recommendations to follow. 4. PPI. 5. History of colon cancer. This needs further evaluation. The patient might benefit from another colonoscopy through the stoma. Once this problem has been sorted out. Other medical problems such as hypertension and arthritis as per Dr. Choudhury. Thank you Dr. Choudhury for allowing me to participate in the care of the patient. If you have any further questions, please let me know. JOB# [id number]
--- NOTE | 2018-02-04 13:35 | Consultation ---
DATE OF CONSULTATION: 02/04/2018 HEMATOLOGY ONCOLOGY CONSULTATION REFERRING PHYSICIAN: Dr. Choudhury. REASON FOR CONSULTATION: Colon cancer. HISTORY OF PRESENT ILLNESS: The patient is an 82-year-old female who was admitted because of failure to thrive and found to have leukocytosis. She is a resident of a nursing facility. She was reported to have poor intake and loss of weight and she had history of colon cancer per the records that was resected and had a permanent colostomy and also was treated with radiation and chemotherapy in the past. The details of the treatment and the exact stage are not available. PAST MEDICAL HISTORY: Colon cancer. MEDICATIONS: Reviewed. SOCIAL HISTORY: Resident of a nursing facility. PHYSICAL EXAMINATION: GENERAL: The patient is awake, cachectic. VITAL SIGNS: Afebrile. HEENT: Atraumatic. NECK: Supple. CHEST: Good air entry. ABDOMEN: Soft. Colostomy in place. EXTREMITIES: Wasted muscles. Onychomycosis on the toenails. LABORATORY AND DIAGNOSTIC DATA: White count from admission 12.1, hemoglobin 13, platelets 351. Sodium 127, creatinine 0.4. No recent imaging of the abdomen is available. ASSESSMENT: History of colon cancer. I will obtain CEA and CT of the abdomen with contrast. The patient is being evaluated by the emergency medcl emt for possible placement of PEG for nutrition because of progressive weight loss and failure to thrive. May start the patient on DVT prophylaxis after the procedure. Thank you Dr. Choudhury for the opportunity to participate in the care of this interesting case with you. JOB# [id number]
--- NOTE | 2018-02-04 14:12 | Infectious Disease Prog Note ---
Infectious Disease Subjective - Review of Systems Service Date: 02/04/18 Subjective: 1. Leukocytosis, reactive versus sepsis. 2. Failure to thrive. 3. Protein calorie malnutrition. 4. Colon cancer. 5. Status post colostomy and colectomy. 6. History of hypertension. Infectious Disease Objective - Results Result Diagrams: 02/04/18 05:50 02/04/18 05:50 Recent Labs: Laboratory Last Values WBC 7.0 Th/cmm (4.8-10.8) D 02/04/18 05:50 RBC 4.93 Mil/cmm (3.80-5.20) 02/04/18 05:50 Hgb 14.0 gm/dL (12-16) 02/04/18 05:50 Hct 42.4 % (41.0-60) 02/04/18 05:50 MCV 86.1 fl (81-100) 02/04/18 05:50 MCH 28.4 pg (27.0-31.0) 02/04/18 05:50 MCHC Differential 33.0 pg (28.0-36.0) 02/04/18 05:50 RDW 15.3 % (11.5-20.0) 02/04/18 05:50 Plt Count 322 Th/cmm (150-400) 02/04/18 05:50 MPV 7.7 fl 02/04/18 05:50 Add Manual Diff YES 02/04/18 05:50 Neutrophils % 89.7 % (40.0-80.0) H 02/03/18 12:58 Band Neutrophils % 2 % (0-10) 02/04/18 05:50 Lymphocytes % 7.0 % (20.0-50.0) L 02/03/18 12:58 Monocytes % 2.7 % (2.0-10.0) 02/03/18 12:58 Eosinophils % 0.6 % (0.0-5.0) 02/03/18 12:58 Basophils % 0.0 % (0.0-2.0) 02/03/18 12:58 Neutrophils (Manual) 82 % (40-80) H 02/04/18 05:50 Lymphocytes 10 % (20-50) L 02/04/18 05:50 Monocytes 6 % (2-10) 02/04/18 05:50 Eosinophils 2 % (0-5) 02/04/18 05:50 Platelet Estimate ADEQUATE (NORMAL) 02/04/18 05:50 PT 12.5 SECONDS (9.5-11.5) H 02/04/18 05:50 INR 1.21 (0.5-1.4) 02/04/18 05:50 Sodium 127 mEq/L (136-145) L 02/04/18 05:50 Potassium 3.9 mEq/L (3.5-5.1) 02/04/18 05:50 Chloride 91 mEq/L (98-107) L 02/04/18 05:50 Carbon Dioxide 23.9 mEq/L (21.0-31.0) 02/04/18 05:50 Anion Gap 16.0 (7.0-16.0) 02/04/18 05:50 BUN 15 mg/dL (7-25) 02/04/18 05:50 Creatinine 0.4 mg/dL (0.6-1.2) L 02/04/18 05:50 Est GFR ( Amer) TNP 02/04/18 05:50 Est GFR (Non-Af Amer) TNP 02/04/18 05:50 BUN/Creatinine Ratio 37.5 02/04/18 05:50 Glucose 143 mg/dL (70-105) H 02/04/18 05:50 Calcium 9.3 mg/dL (8.6-10.3) 02/04/18 05:50 Phosphorus 2.0 mg/dL (2.5-5.0) L 02/03/18 12:58 Magnesium 2.1 mg/dL (1.9-2.7) 02/03/18 12:58 Total Bilirubin 0.7 mg/dL (0.3-1.0) 02/03/18 12:58 AST 18 U/L (13-39) 02/03/18 12:58 ALT 8 U/L (7-52) 02/03/18 12:58 Alkaline Phosphatase 166 U/L (34-104) H 02/03/18 12:58 Total Protein 6.9 gm/dL (6.0-8.3) 02/03/18 12:58 Albumin 3.5 gm/dL (3.7-5.3) L 10/07/18 12:58 Globulin 3.4 gm/dL 02/03/18 12:58 Albumin/Globulin Ratio 1.0 (1.0-1.8) 02/03/18 12:58 Amylase 44 U/L (29-103) 02/03/18 12:58 Lipase 16 U/L (11-82) 02/03/18 12:58 Urine Source RANDOM 02/04/18 04:30 Urine Color YELLOW 02/04/18 04:30 Urine Clarity SLIGHT CLOUDY (CLEAR) H 02/04/18 04:30 Urine pH 6.5 (4.6 - 8.0) 02/04/18 04:30 Ur Specific [place] 1.010 (1.005-1.030) 02/04/18 04:30 Urine Protein NEGATIVE mg/dL (NEGATIVE) 02/04/18 04:30 Urine Glucose (UA) NEGATIVE mg/dL (NEGATIVE) 02/04/18 04:30 Urine Ketones 15 mg/dL (NEGATIVE) H 02/04/18 04:30 Urine Blood TRACE (NEGATIVE) 02/04/18 04:30 Urine Nitrate NEGATIVE (NEGATIVE) 02/04/18 04:30 Urine Bilirubin NEGATIVE (NEGATIVE) 02/04/18 04:30 Urine Urobilinogen 0.2 E.U./dL (0.2 - 1.0) 02/04/18 04:30 Ur Leukocyte Esterase TRACE (NEGATIVE) H 02/04/18 04:30 Urine RBC 0-2 /hpf (0-5) 02/04/18 04:30 Urine WBC 2-5 /hpf (0-5) 02/04/18 04:30 Ur Epithelial Cells FEW /lpf (FEW) 02/04/18 04:30 Urine Bacteria FEW /hpf (NONE SEEN) 02/04/18 04:30 - Physical Exam Vitals and I&O: Vital Signs Temp 97.4 F 02/04/18 12:37 Pulse 92 02/04/18 12:37 Resp 18 02/04/18 12:54 BP 120/73 02/04/18 12:37 Pulse Ox 97 02/04/18 12:37 Intake & Output 02/03/18 02/04/18 02/04/18 18:59 06:59 18:59 Intake Total 50 1120 Output Total 75 200 Balance -25 920 Weight (lbs) 43.273 kg 43.001 kg Intake: Intake, IV Amount 1000 D5-0.45NS 1,000 ml @ 75 1000 mls/hr IV .[id number] [facility] Rx #:[id number] Oral 50 120 Output: Urine 200 Stool 75 Other: # Voids 1 Stool Characteristics Liquid [facility] Medications: Current Medications Acetaminophen (Tylenol) 650 mg PO Q6H PRN PRN Reason: Pain (Moderate) Stop: 04/04/18 16:58 Al Hydrox/Mg Hydrox/Simethicone (Maalox) 30 ml PO Q6H PRN PRN Reason: Upset Stomach / Indigestion Stop: 04/04/18 16:58 Ascorbic Acid (Vitamin C) 500 mg PO BID [facility] Stop: 04/04/18 16:59 Last Admin: 02/04/18 09:59 Dose: 500 mg Calcium/Vitamin D (Oscal W/Vitamin D) 1 tab PO DAILY [facility] Stop: 04/05/18 08:59 Last Admin: 02/04/18 09:59 Dose: 1 tab Ferrous Sulfate (Iron) 325 mg PO BID [facility] Stop: 04/04/18 16:59 Last Admin: 02/04/18 09:59 Dose: 325 mg Dextrose/Sodium Chloride (D5-0.45ns) 1,000 mls @ 75 mls/hr IV .[id number] [facility] Stop: 04/04/18 14:44 Last Admin: 02/04/18 07:11 Dose: 75 mls/hr Megestrol Acetate (Megace) 400 mg PO DAILY [facility] Stop: 04/04/18 17:59 Last Admin: 02/04/18 09:58 Dose: 400 mg Nystatin (Nystatin) 100,000 units PO TID [facility] Stop: 04/04/18 20:59 Last Admin: 02/04/18 09:59 Dose: 100,000 units Prochlorperazine Maleate (Compazine) 10 mg PO Q6H PRN; Protocol PRN Reason: NAUSEA/VOMITING Stop: 04/04/18 16:58 General: no acute distress, cachectic HEENT: atraumatic, normocephalic, PERRLA Neck: supple, no thyromegaly, no lymphadenopathy Cardiovascular: S1S2, regular, irregular Lungs: clear to auscultation bilaterally, clear to percussion, wheeze Abdomen: soft, other (coloctomy.), no tender, no distended Extremities: no cyanosis, no clubbing, no edema Neurological: awake, alert, oriented Skin: intact - Procedures Procedures: Procedures Procedure Code Date FLUOROSCOPY OF SUP VENA CAVA USING L OSM CONTRAST, GUIDANCE [id number] 12/11/16 INSERTION OF INFUSION DEV INTO SUP VENA CAVA, PERC APPROACH [id number] 12/11/16 REMOVAL OF INFUSION DEVICE FROM UPPER VEIN, OPEN APPROACH [id number] 12/11/16 REMOVAL OF TIVAD FROM TRUNK SUBCU/FASCIA, OPEN APPROACH [id number] 09/25/17 REMOVAL TUNNELED CV CATH [id number] 09/25/17 REMOVAL TUNNELED CV CATH [id number] 12/11/16 Infectious Disease Assmt/Plan - Problem List Patient Problems: All Active Problems Failure to thrive (Acute) [id number] H/O colectomy (Acute) Z90.49 HTN (hypertension) (Acute) I10 Leukocytosis (Acute) D72.829 Malnutrition (Acute) E46 S/P colostomy (Acute) Z93.3 - Assessment Assessment: 1. Leukocytosis, reactive versus sepsis. 2. Failure to thrive. 3. Protein calorie malnutrition. 4. Colon cancer. 5. Status post colostomy and colectomy. 6. History of hypertension. - Plan Plan: CPm.
--- NOTE | 2018-02-04 14:51 | Diagnostic Imaging Report ---
CT abdomen and pelvis with intravenous contrast Indication: Colon cancer Comparison: None, Technique: Axial images were obtained from the lung bases to the bilateral proximal femurs with IV and oral IV contrast. Coronal reconstructions were made. total DLP: 379, CTDI8.4 FINDINGS: Chronic lung changes are noted with hypoventilatory atelectatic changes. Right basal pleural calcifications are noted. There are multiple ill-defined low-density lesions within the liver greatest within the right lobe of the liver measuring up to 9 x 8 cm. No focal splenic lesions. Limited assessment of the pancreas demonstrates a cystic lesion possibly along the body of the pancreas measuring 2.3 x 1.4 cm. There is severe left-sided hydronephrosis and left hydroureter. There may be urinary bladder defect upon the left side. There is also abnormal soft tissue density mass lesion seen along the left retroperitoneal lesion which may be blocking the left ureter with this area measuring 3.0 x 2.5 cm. Right-sided urinary bladder jet is noted. There may be a small sacral decubitus ulcer. Trace free fluid in the pelvis is noted. Oral contrast is seen within the small large bowel loops without evidence of obstruction. Left lower quadrant ostomy is noted. Postsurgical changes of bowel loops are seen along the right lower abdomen. There is a moderate-sized hiatal hernia with gastroesophageal reflux noted. Moderate atherosclerosis noted. Degenerative changes of the spine and pelvis are noted with osteopenia. Scoliosis is noted. There is also a 1.5 cm sclerotic lesion of the right sacrum. An additional few small sclerotic lesions of the spine are noted. IMPRESSION: Severe left hydronephrosis and left hydroureter. There are ill defined heterogeneously of the left lower retroperitoneum which may be blocking the left ureter measuring up to 3.0 x 2.5 cm. This is suspicious for underlying neoplastic process. Please correlate with patient's clinical history. There is also suggestion of a filling defect upon the left-sided urinary bladder. Correlation is made clinically for possible bladder mass lesion and urothelial lesion which may also involve the left ureter. Multiple ill-defined lesions of the liver consistent with metastatic disease. Correlation is to be made clinically. 2.3 x 1.4 cm indeterminate cystic lesion within the body of the pancreas. This may represent a pancreatic cyst however neoplastic process cannot be excluded. Left quadrant ostomy and postsurgical changes within right lower quadrant bowel loops.. Fluid and contrast filled loops of bowel noted without evidence of obstruction. A few sclerotic lesions of the bones, largest within the right iliac bone. Findings are indeterminate may represent incidental bone islands, however, osseous metastatic disease cannot be completely excluded. If indicated nuclear medicine bone scan may be obtained for further assessment Moderate hiatal hernia with gastroesophageal reflux suspected. Osteopenia and diffuse degenerative changes. Possible small sacral decubitus ulcer, correlate clinically. Right basal pleural calcifications possibly due to previous asbestos exposure.
--- NOTE | 2018-02-04 16:00 | GI Progress Note ---
Subjective - Review of Systems Service Date: 02/04/18 Events since last encounter: No events Subjective: No significant change Objective - Results Result Diagrams: 02/04/18 05:50 02/04/18 05:50 Recent Labs: Laboratory Last Values WBC 7.0 Th/cmm (4.8-10.8) D 02/04/18 05:50 RBC 4.93 Mil/cmm (3.80-5.20) 02/04/18 05:50 Hgb 14.0 gm/dL (12-16) 02/04/18 05:50 Hct 42.4 % (41.0-60) 02/04/18 05:50 MCV 86.1 fl (81-100) 02/04/18 05:50 MCH 28.4 pg (27.0-31.0) 02/04/18 05:50 MCHC Differential 33.0 pg (28.0-36.0) 02/04/18 05:50 RDW 15.3 % (11.5-20.0) 02/04/18 05:50 Plt Count 322 Th/cmm (150-400) 02/04/18 05:50 MPV 7.7 fl 02/04/18 05:50 Add Manual Diff YES 02/04/18 05:50 Neutrophils % 89.7 % (40.0-80.0) H 02/03/18 12:58 Band Neutrophils % 2 % (0-10) 02/04/18 05:50 Lymphocytes % 7.0 % (20.0-50.0) L 02/03/18 12:58 Monocytes % 2.7 % (2.0-10.0) 02/03/18 12:58 Eosinophils % 0.6 % (0.0-5.0) 02/03/18 12:58 Basophils % 0.0 % (0.0-2.0) 02/03/18 12:58 Neutrophils (Manual) 82 % (40-80) H 02/04/18 05:50 Lymphocytes 10 % (20-50) L 02/04/18 05:50 Monocytes 6 % (2-10) 02/04/18 05:50 Eosinophils 2 % (0-5) 02/04/18 05:50 Platelet Estimate ADEQUATE (NORMAL) 02/04/18 05:50 PT 12.5 SECONDS (9.5-11.5) H 02/04/18 05:50 INR 1.21 (0.5-1.4) 02/04/18 05:50 Sodium 127 mEq/L (136-145) L 02/04/18 05:50 Potassium 3.9 mEq/L (3.5-5.1) 02/04/18 05:50 Chloride 91 mEq/L (98-107) L 02/04/18 05:50 Carbon Dioxide 23.9 mEq/L (21.0-31.0) 02/04/18 05:50 Anion Gap 16.0 (7.0-16.0) 02/04/18 05:50 BUN 15 mg/dL (7-25) 02/04/18 05:50 Creatinine 0.4 mg/dL (0.6-1.2) L 02/04/18 05:50 Est GFR ( Amer) TNP 02/04/18 05:50 Est GFR (Non-Af Amer) TNP 02/04/18 05:50 BUN/Creatinine Ratio 37.5 02/04/18 05:50 Glucose 143 mg/dL (70-105) H 02/04/18 05:50 Calcium 9.3 mg/dL (8.6-10.3) 02/04/18 05:50 Phosphorus 2.0 mg/dL (2.5-5.0) L 02/03/18 12:58 Magnesium 2.1 mg/dL (1.9-2.7) 02/03/18 12:58 Total Bilirubin 0.7 mg/dL (0.3-1.0) 02/03/18 12:58 AST 18 U/L (13-39) 02/03/18 12:58 ALT 8 U/L (7-52) 02/03/18 12:58 Alkaline Phosphatase 166 U/L (34-104) H 02/03/18 12:58 Total Protein 6.9 gm/dL (6.0-8.3) 02/03/18 12:58 Albumin 3.5 gm/dL (3.7-5.3) L 02/03/18 12:58 Globulin 3.4 gm/dL 02/03/18 12:58 Albumin/Globulin Ratio 1.0 (1.0-1.8) 02/03/18 12:58 Amylase 44 U/L (29-103) 02/03/18 12:58 Lipase 16 U/L (11-82) 02/03/18 12:58 Urine Source RANDOM 02/04/18 04:30 Urine Color YELLOW 02/04/18 04:30 Urine Clarity SLIGHT CLOUDY (CLEAR) H 02/04/18 04:30 Urine pH 6.5 (4.6 - 8.0) 02/04/18 04:30 Ur Specific [place] 1.010 (1.005-1.030) 02/04/18 04:30 Urine Protein NEGATIVE mg/dL (NEGATIVE) 02/04/18 04:30 Urine Glucose (UA) NEGATIVE mg/dL (NEGATIVE) 02/04/18 04:30 Urine Ketones 15 mg/dL (NEGATIVE) H 02/04/18 04:30 Urine Blood TRACE (NEGATIVE) 02/04/18 04:30 Urine Nitrate NEGATIVE (NEGATIVE) 02/04/18 04:30 Urine Bilirubin NEGATIVE (NEGATIVE) 02/04/18 04:30 Urine Urobilinogen 0.2 E.U./dL (0.2 - 1.0) 02/04/18 04:30 Ur Leukocyte Esterase TRACE (NEGATIVE) H 02/04/18 04:30 Urine RBC 0-2 /hpf (0-5) 02/04/18 04:30 Urine WBC 2-5 /hpf (0-5) 02/04/18 04:30 Ur Epithelial Cells FEW /lpf (FEW) 02/04/18 04:30 Urine Bacteria FEW /hpf (NONE SEEN) 02/04/18 04:30 - Physical Exam Vitals and I&O: Vital Signs Temp 97.0 F 02/04/18 15:13 Pulse 90 02/04/18 15:13 Resp 18 02/04/18 15:13 BP 119/68 02/04/18 15:13 Pulse Ox 98 02/04/18 15:13 Intake & Output 02/03/18 02/04/18 02/04/18 18:59 06:59 18:59 Intake Total 50 1120 Output Total 75 200 Balance -25 920 Weight (lbs) 43.273 kg 43.001 kg Intake: Intake, IV Amount 1000 D5-0.45NS 1,000 ml @ 75 1000 mls/hr IV .[id number] [facility] Rx #:[id number] Oral 50 120 Output: Urine 200 Stool 75 Other: # Voids 1 Stool Characteristics Liquid Liquid Liquid [facility] Active Medications: Current Medications Acetaminophen (Tylenol) 650 mg PO Q6H PRN PRN Reason: Pain (Moderate) Stop: 04/04/18 16:58 Al Hydrox/Mg Hydrox/Simethicone (Maalox) 30 ml PO Q6H PRN PRN Reason: Upset Stomach / Indigestion Stop: 04/04/18 16:58 Ascorbic Acid (Vitamin C) 500 mg PO BID [facility] Stop: 04/04/18 16:59 Last Admin: 02/04/18 09:59 Dose: 500 mg Calcium/Vitamin D (Oscal W/Vitamin D) 1 tab PO DAILY [facility] Stop: 04/05/18 08:59 Last Admin: 02/04/18 09:59 Dose: 1 tab Ferrous Sulfate (Iron) 325 mg PO BID [facility] Stop: 04/04/18 16:59 Last Admin: 02/04/18 09:59 Dose: 325 mg Dextrose/Sodium Chloride (D5-0.45ns) 1,000 mls @ 75 mls/hr IV .[id number] [facility] Stop: 04/04/18 14:44 Last Admin: 02/04/18 07:11 Dose: 75 mls/hr Megestrol Acetate (Megace) 400 mg PO DAILY [facility] Stop: 04/04/18 17:59 Last Admin: 02/04/18 09:58 Dose: 400 mg Nystatin (Nystatin) 100,000 units PO TID [facility] Stop: 04/04/18 20:59 Last Admin: 02/04/18 09:59 Dose: 100,000 units Prochlorperazine Maleate (Compazine) 10 mg PO Q6H PRN; Protocol PRN Reason: NAUSEA/VOMITING Stop: 04/04/18 16:58 General: Alert, No acute distress HEENT: Atraumatic Neck: Supple, JVD Cardiovascular: Regular rate, Normal S1, Normal S2 Lungs: Clear to auscultation Abdomen: Bowel sounds, Soft - Procedures Procedures: Procedures Procedure Code Date FLUOROSCOPY OF SUP VENA CAVA USING L OSM CONTRAST, GUIDANCE [id number] 12/11/16 INSERTION OF INFUSION DEV INTO SUP VENA CAVA, PERC APPROACH [id number] 12/11/16 REMOVAL OF INFUSION DEVICE FROM UPPER VEIN, OPEN APPROACH [id number] 12/11/16 REMOVAL OF TIVAD FROM TRUNK SUBCU/FASCIA, OPEN APPROACH [id number] 09/25/17 REMOVAL TUNNELED CV CATH [id number] 09/25/17 REMOVAL TUNNELED CV CATH [id number] 12/11/16 Assessment/Plan - Problem List Patient Problems: All Active Problems Failure to thrive (Acute) [id number] H/O colectomy (Acute) Z90.49 HTN (hypertension) (Acute) I10 Leukocytosis (Acute) D72.829 Malnutrition (Acute) E46 S/P colostomy (Acute) Z93.3 - Assessment Assessment: Dysphagia - Plan Plan: 1.Dysphagia PPI Diet as tolerated EGD in AM
[2018-02-05] MEDS: D5-0.45NS 1,000 ML IV SCH ×2 (04:23→16:31)
[2018-02-05 07:10] LABS: HEMOGLOBIN 12.4 gm/dL (12-16); MEAN CORPUSCULAR HEMOGLOBIN 28.5 pg (27.0-31.0); MEAN CORPUSCULAR HGB CONC 33.6 pg (28.0-36.0); MEAN PLATELET VOLUME 7.2 fl; PLATELET COUNT 296 Th/cmm (150-400); RED BLOOD COUNT 4.36 Mil/cmm (3.80-5.20); RED CELL DISTRIBUTION WIDTH 15.3 % (11.5-20.0); WHITE BLOOD COUNT 8.9 Th/cmm (4.8-10.8)
[2018-02-05 07:11] LABS: ALKALINE PHOSPHATASE 142 U/L (34-104); ANION GAP 12.2 (7.0-16.0); BILIRUBIN,TOTAL 0.5 mg/dL (0.3-1.0); BUN - UREA NITROGEN 8 mg/dL (7-25); CALCIUM SERUM 8.7 mg/dL (8.6-10.3); CARBON DIOXIDE 23.2 mEq/L (21.0-31.0); CHLORIDE 95 mEq/L (98-107); CREATININE - SERUM 0.4 mg/dL (0.6-1.2); GLUCOSE 109 mg/dL (70-105); POTASSIUM SERUM 3.4 mEq/L (3.5-5.1); SGOT 19 U/L (13-39); SGPT/ALT 7 U/L (7-52); SODIUM SERUM 127 mEq/L (136-145); TOTAL PROTEIN,SERUM 5.9 gm/dL (6.0-8.3)
[2018-02-05 09:41] LABS: BAND NEUTROPHILE 1 % (0-10); LYMPHOCYTE 10 % (20-50); MONOCYTE 4 % (2-10); NEUTROPHILS 84 % (40-80); PLATELET ESTIMATE ADEQUATE (NORMAL)
--- NOTE | 2018-02-05 10:53 | Diagnostic Imaging Report ---
Portable chest x-ray HISTORY: Cough The heart size is normal. Atherosclerotic calcification seen in the aorta. No acute focal pulmonary processes. Arthritic changes noted about the shoulder regions. IMPRESSION: No acute abnormalities
[2018-02-05] MEDS: Multivitamin w/ Minerals Tab PO SCH (11:32)
[2018-02-05] MEDS: Ferrous Sulfate 325 MG TAB PO SCH ×2 (11:32→16:41)
[2018-02-05] MEDS: Calcium Carb/Vit D 500 mg/200 U Tab PO SCH (11:32)
[2018-02-05] MEDS ORDERED: Potassium Chloride 20 mEq ER Tab PO ONE (12:30)
--- NOTE | 2018-02-05 12:30 | Internal Medicine Prog Note ---
Internal Medicine Subjective - Subjective Service Date: 02/05/18 Patient seen and examined:: with staff Patient is:: awake, verbal Per staff patient has:: tolerating meds Internal Medicine Objective - Results Result Diagrams: 02/05/18 05:48 02/05/18 05:48 Recent Labs: Laboratory Last Values WBC 8.9 Th/cmm (4.8-10.8) D 02/05/18 05:48 RBC 4.36 Mil/cmm (3.80-5.20) 02/05/18 05:48 Hgb 12.4 gm/dL (12-16) 02/05/18 05:48 Hct 37.0 % (41.0-60) L D 02/05/18 05:48 MCV 85.0 fl (81-100) 02/05/18 05:48 MCH 28.5 pg (27.0-31.0) 02/05/18 05:48 MCHC Differential 33.6 pg (28.0-36.0) 02/05/18 05:48 RDW 15.3 % (11.5-20.0) 02/05/18 05:48 Plt Count 296 Th/cmm (150-400) 02/05/18 05:48 MPV 7.2 fl 02/05/18 05:48 Add Manual Diff YES 02/05/18 05:48 Neutrophils % 89.7 % (40.0-80.0) H 02/03/18 12:58 Band Neutrophils % 1 % (0-10) 02/05/18 05:48 Lymphocytes % 7.0 % (20.0-50.0) L 02/03/18 12:58 Monocytes % 2.7 % (2.0-10.0) 02/03/18 12:58 Eosinophils % 0.6 % (0.0-5.0) 02/03/18 12:58 Basophils % 0.0 % (0.0-2.0) 02/03/18 12:58 Neutrophils (Manual) 84 % (40-80) H 02/05/18 05:48 Lymphocytes 10 % (20-50) L 02/05/18 05:48 Monocytes 4 % (2-10) 02/05/18 05:48 Eosinophils 2 % (0-5) 02/04/18 05:50 Platelet Estimate ADEQUATE (NORMAL) 02/05/18 05:48 PT 12.5 SECONDS (9.5-11.5) H 02/04/18 05:50 INR 1.21 (0.5-1.4) 02/04/18 05:50 Sodium 127 mEq/L (136-145) L 02/05/18 05:48 Potassium 3.4 mEq/L (3.5-5.1) L 02/05/18 05:48 Chloride 95 mEq/L (98-107) L 02/05/18 05:48 Carbon Dioxide 23.2 mEq/L (21.0-31.0) 02/05/18 05:48 Anion Gap 12.2 (7.0-16.0) 02/05/18 05:48 BUN 8 mg/dL (7-25) 02/05/18 05:48 Creatinine 0.4 mg/dL (0.6-1.2) L 02/05/18 05:48 Est GFR ( Amer) TNP 02/05/18 05:48 Est GFR (Non-Af Amer) TNP 02/05/18 05:48 BUN/Creatinine Ratio 20.0 02/05/18 05:48 Glucose 109 mg/dL (70-105) H 02/05/18 05:48 Calcium 8.7 mg/dL (8.6-10.3) 02/05/18 05:48 Phosphorus 2.0 mg/dL (2.5-5.0) L 02/03/18 12:58 Magnesium 2.1 mg/dL (1.9-2.7) 02/03/18 12:58 Total Bilirubin 0.5 mg/dL (0.3-1.0) 02/05/18 05:48 AST 19 U/L (13-39) 02/05/18 05:48 ALT 7 U/L (7-52) 02/05/18 05:48 Alkaline Phosphatase 142 U/L (34-104) H 02/05/18 05:48 Total Protein 5.9 gm/dL (6.0-8.3) L 02/05/18 05:48 Albumin 3.0 gm/dL (3.7-5.3) L 02/05/18 05:48 Globulin 2.9 gm/dL 02/05/18 05:48 Albumin/Globulin Ratio 1.0 (1.0-1.8) 02/05/18 05:48 Amylase 44 U/L (29-103) 02/03/18 12:58 Lipase 16 U/L (11-82) 02/03/18 12:58 Carcinoembryonic Ag 181.2 ng/mL (0.0-4.7) H 02/04/18 05:50 Urine Source RANDOM 02/04/18 04:30 Urine Color YELLOW 02/04/18 04:30 Urine Clarity SLIGHT CLOUDY (CLEAR) H 02/04/18 04:30 Urine pH 6.5 (4.6 - 8.0) 02/04/18 04:30 Ur Specific [place] 1.010 (1.005-1.030) 02/04/18 04:30 Urine Protein NEGATIVE mg/dL (NEGATIVE) 02/04/18 04:30 Urine Glucose (UA) NEGATIVE mg/dL (NEGATIVE) 02/04/18 04:30 Urine Ketones 15 mg/dL (NEGATIVE) H 02/04/18 04:30 Urine Blood TRACE (NEGATIVE) 02/04/18 04:30 Urine Nitrate NEGATIVE (NEGATIVE) 02/04/18 04:30 Urine Bilirubin NEGATIVE (NEGATIVE) 02/04/18 04:30 Urine Urobilinogen 0.2 E.U./dL (0.2 - 1.0) 02/04/18 04:30 Ur Leukocyte Esterase TRACE (NEGATIVE) H 02/04/18 04:30 Urine RBC 0-2 /hpf (0-5) 02/04/18 04:30 Urine WBC 2-5 /hpf (0-5) 02/04/18 04:30 Ur Epithelial Cells FEW /lpf (FEW) 02/04/18 04:30 Urine Bacteria FEW /hpf (NONE SEEN) 02/04/18 04:30 - Physical Exam Vitals and I&O: Vital Signs Temp 97.5 F 02/05/18 12:00 Pulse 103 02/05/18 12:00 Resp 18 02/05/18 12:00 BP 103/62 02/05/18 12:00 Pulse Ox 97 02/05/18 12:00 Intake & Output 02/04/18 02/05/18 02/05/18 18:59 06:59 18:59 Intake Total 450 1000 Output Total 225 Balance 225 1000 Weight (lbs) 94 lb 132 lb Intake: Intake, IV Amount 1000 D5-0.45NS 1,000 ml @ 75 1000 mls/hr IV .[id number] [facility] Rx #:[id number] Oral 450 Output: Stool 225 Other: # Voids 2 2 Stool Characteristics Liquid Liquid [facility] Active Medications: Current Medications Acetaminophen (Tylenol) 650 mg PO Q6H PRN PRN Reason: Pain (Moderate) Stop: 04/04/18 16:58 Al Hydrox/Mg Hydrox/Simethicone (Maalox) 30 ml PO Q6H PRN PRN Reason: Upset Stomach / Indigestion Stop: 04/04/18 16:58 Ascorbic Acid (Vitamin C) 500 mg PO BID [facility] Stop: 04/04/18 16:59 Last Admin: 02/05/18 11:31 Dose: Not Given Calcium/Vitamin D (Oscal W/Vitamin D) 1 tab PO DAILY [facility] Stop: 04/05/18 08:59 Last Admin: 02/05/18 11:32 Dose: Not Given Ferrous Sulfate (Iron) 325 mg PO BID [facility] Stop: 04/04/18 16:59 Last Admin: 02/05/18 11:32 Dose: Not Given Dextrose/Sodium Chloride (D5-0.45ns) 1,000 mls @ 75 mls/hr IV .[id number] [facility] Stop: 04/04/18 14:44 Last Admin: 02/05/18 04:23 Dose: 75 mls/hr Megestrol Acetate (Megace) 400 mg PO DAILY [facility] Stop: 04/04/18 17:59 Last Admin: 02/05/18 11:32 Dose: Not Given Nystatin (Nystatin) 100,000 units PO TID [facility] Stop: 04/04/18 20:59 Last Admin: 02/05/18 11:32 Dose: Not Given Prochlorperazine Maleate (Compazine) 10 mg PO Q6H PRN; Protocol PRN Reason: NAUSEA/VOMITING Stop: 04/04/18 16:58 General: alert HEENT: NC/AT, PERRLA Neck: Supple Lungs: CTAB Cardiovascular: RRR, Normal S1, Normal S2 Abdomen: soft, non-distended, positive bowel sound Extremities: excoriation Neurological: alert - Procedures Procedures: Procedures Procedure Code Date FLUOROSCOPY OF SUP VENA CAVA USING L OSM CONTRAST, GUIDANCE [id number] 12/11/16 INSERTION OF INFUSION DEV INTO SUP VENA CAVA, PERC APPROACH [id number] 12/11/16 REMOVAL OF INFUSION DEVICE FROM UPPER VEIN, OPEN APPROACH [id number] 12/11/16 REMOVAL OF TIVAD FROM TRUNK SUBCU/FASCIA, OPEN APPROACH [id number] 09/25/17 REMOVAL TUNNELED CV CATH [id number] 09/25/17 REMOVAL TUNNELED CV CATH [id number] 12/11/16 Internal Medicine Assmt/Plan - Assessment Assessment: possible sepsis leukocytosis failure to thrive protein calorie malnutrition colon ca s/p colostomy and colectomy htn - Plan Plan: follow up labs in am continue current plan of care Nutritional Asmnt/Malnutr-PDOC - Dietary Evaluation Malnutrition Findings (Please click <Entered> for more info): Nutritional Asmnt/Malnutrition Start: 02/04/18 17: 47 Text: Status: Active Freq: Protocol: Document 02/04/18 17:47 BLAINE (Rec: 02/04/18 18:05 [email or web address] [email or web address]) Nutritional Asmnt/Malnutrition Patient General Information Nutritional Screening High Risk Diagnosis dehydration, failure to thrive Pertinent Medical Hx/Surgical Hx HTN, dyslipidemia, colon CA, colostomy Subjective Information Pt seen lying in bed at time of visit, awake and alert. Per H&P, pt admitted for poor intake and wt loss of 7 lb in one last month. Pt reported good appetite and want solid food rather than liquid food. Explained clear liquid diet for pt and pt verbalized understood. Per nurse note, pt has EGD and swallow eval scheduled tommorror 02/05. Current Diet Order/ Nutrition Support clear liquid Pertinent Medications vit C, oscal w/vit D, D5-0. 45ns, iron, megace Pertinent Labs 02/04 Na 127, Cl 91, Cr 0.4, glucose 143 02/03 Na 128, Cl 92, Cr 0.5, phos 2.0, alb 3.5 Nutritional Hx/Data Height 5 ft 4 in Height (Calculated Centimeters) 162.6 Current Weight (lbs) 94 lb Weight (Calculated Kilograms) 42.6 Weight (Calculated Grams) [address].7 [place] Body Weight 120 Body Mass Index (BMI) 16.1 Weight Status Underweight GI Symptoms GI Symptoms None Difficult in: None Usual diet at home pt stated she was on pureed diet d/t no teeth Skin Integrity/Comment: rash to bilateral toes and stoma site pressure area to coccyx robyn 12 Estimated Nutritional Goals BEE in Kcals: Using Current wt Calories/Kcals/Kg 30-35 Kcals Calculated 4114-8500 Protein: Using Current wt Protein g/k.2-1.4 Protein Calculated 52-60 Fluid: ml 1290-1505ml (1ml/1kcal) Nutritional Problem 1. Problem Problem underweight Etiology poor intake per H&P Signs/Symptoms: BMI 16 and recent wt loss of 7lb Malnutrition Alert Is there a minimum of two criteria No selected? Query Text:Check all the applicable criteria. A minimum of two criteria are recommended for diagnosis of either severe or non-severe malnutrition. Intervention/Recommendation Comments 1. Add Ensure clear to current clear liquid diet for extra kcal/protein per protocol. Recommend regular diet and texture per SPL. Add supplement if PO intake low oce diet advanced. 2. Monitor PO intake, wt, labs and skin integrity 3. F/U as high risk in 2-3 days, 02/06-02/07 Expected Outcomes/Goals Expected Outcomes/Goals 1. PO intake to meet at least 75% of nutritional needs. 2. Wt stability, skin to remain intact, labs to approach WNL.
[2018-02-05] MEDS ORDERED: Meperidine 25 mg/mL 1mL Syr ONE ×2 (14:54→15:08)
--- NOTE | 2018-02-05 17:08 | General Progress Note ---
Subjective - Review of Systems Service Date: 02/05/18 Objective - Results Result Diagrams: 02/05/18 05:48 02/05/18 05:48 Recent Labs: Laboratory Last Values WBC 8.9 Th/cmm (4.8-10.8) D 02/05/18 05:48 RBC 4.36 Mil/cmm (3.80-5.20) 02/05/18 05:48 Hgb 12.4 gm/dL (12-16) 02/05/18 05:48 Hct 37.0 % (41.0-60) L D 02/05/18 05:48 MCV 85.0 fl (81-100) 02/05/18 05:48 MCH 28.5 pg (27.0-31.0) 02/05/18 05:48 MCHC Differential 33.6 pg (28.0-36.0) 02/05/18 05:48 RDW 15.3 % (11.5-20.0) 02/05/18 05:48 Plt Count 296 Th/cmm (150-400) 02/05/18 05:48 MPV 7.2 fl 02/05/18 05:48 Add Manual Diff YES 02/05/18 05:48 Neutrophils % 89.7 % (40.0-80.0) H 02/03/18 12:58 Band Neutrophils % 1 % (0-10) 02/05/18 05:48 Lymphocytes % 7.0 % (20.0-50.0) L 02/03/18 12:58 Monocytes % 2.7 % (2.0-10.0) 02/03/18 12:58 Eosinophils % 0.6 % (0.0-5.0) 02/03/18 12:58 Basophils % 0.0 % (0.0-2.0) 02/03/18 12:58 Neutrophils (Manual) 84 % (40-80) H 02/05/18 05:48 Lymphocytes 10 % (20-50) L 02/05/18 05:48 Monocytes 4 % (2-10) 02/05/18 05:48 Eosinophils 2 % (0-5) 02/04/18 05:50 Platelet Estimate ADEQUATE (NORMAL) 02/05/18 05:48 PT 12.5 SECONDS (9.5-11.5) H 02/04/18 05:50 INR 1.21 (0.5-1.4) 02/04/18 05:50 Sodium 127 mEq/L (136-145) L 02/05/18 05:48 Potassium 3.4 mEq/L (3.5-5.1) L 02/05/18 05:48 Chloride 95 mEq/L (98-107) L 02/05/18 05:48 Carbon Dioxide 23.2 mEq/L (21.0-31.0) 02/05/18 05:48 Anion Gap 12.2 (7.0-16.0) 02/05/18 05:48 BUN 8 mg/dL (7-25) 02/05/18 05:48 Creatinine 0.4 mg/dL (0.6-1.2) L 02/05/18 05:48 Est GFR ( Amer) TNP 02/05/18 05:48 Est GFR (Non-Af Amer) TNP 02/05/18 05:48 BUN/Creatinine Ratio 20.0 02/05/18 05:48 Glucose 109 mg/dL (70-105) H 02/05/18 05:48 Calcium 8.7 mg/dL (8.6-10.3) 02/05/18 05:48 Phosphorus 2.0 mg/dL (2.5-5.0) L 02/03/18 12:58 Magnesium 2.1 mg/dL (1.9-2.7) 02/03/18 12:58 Total Bilirubin 0.5 mg/dL (0.3-1.0) 02/05/18 05:48 AST 19 U/L (13-39) 02/05/18 05:48 ALT 7 U/L (7-52) 02/05/18 05:48 Alkaline Phosphatase 142 U/L (34-104) H 02/05/18 05:48 Total Protein 5.9 gm/dL (6.0-8.3) L 02/05/18 05:48 Albumin 3.0 gm/dL (3.7-5.3) L 02/05/18 05:48 Globulin 2.9 gm/dL 02/05/18 05:48 Albumin/Globulin Ratio 1.0 (1.0-1.8) 02/05/18 05:48 Amylase 44 U/L (29-103) 02/03/18 12:58 Lipase 16 U/L (11-82) 02/03/18 12:58 Carcinoembryonic Ag 181.2 ng/mL (0.0-4.7) H 02/04/18 05:50 Urine Source RANDOM 02/04/18 04:30 Urine Color YELLOW 02/04/18 04:30 Urine Clarity SLIGHT CLOUDY (CLEAR) H 02/04/18 04:30 Urine pH 6.5 (4.6 - 8.0) 02/04/18 04:30 Ur Specific [place] 1.010 (1.005-1.030) 02/04/18 04:30 Urine Protein NEGATIVE mg/dL (NEGATIVE) 02/04/18 04:30 Urine Glucose (UA) NEGATIVE mg/dL (NEGATIVE) 02/04/18 04:30 Urine Ketones 15 mg/dL (NEGATIVE) H 02/04/18 04:30 Urine Blood TRACE (NEGATIVE) 02/04/18 04:30 Urine Nitrate NEGATIVE (NEGATIVE) 02/04/18 04:30 Urine Bilirubin NEGATIVE (NEGATIVE) 02/04/18 04:30 Urine Urobilinogen 0.2 E.U./dL (0.2 - 1.0) 02/04/18 04:30 Ur Leukocyte Esterase TRACE (NEGATIVE) H 02/04/18 04:30 Urine RBC 0-2 /hpf (0-5) 02/04/18 04:30 Urine WBC 2-5 /hpf (0-5) 02/04/18 04:30 Ur Epithelial Cells FEW /lpf (FEW) 02/04/18 04:30 Urine Bacteria FEW /hpf (NONE SEEN) 02/04/18 04:30 - Physical Exam Vitals and I&O: Vital Signs Temp 97.5 F 02/05/18 12:00 Pulse 103 02/05/18 12:00 Resp 18 02/05/18 14:03 BP 103/62 02/05/18 12:00 Pulse Ox 97 02/05/18 12:00 Intake & Output 02/04/18 02/05/18 02/05/18 18:59 06:59 18:59 Intake Total 450 1000 910 Output Total 225 Balance 225 1000 910 Weight (lbs) 42.638 kg 59.874 kg Intake: Intake, IV Amount 1000 910 D5-0.45NS 1,000 ml @ 75 1000 910 mls/hr IV .[id number] [facility] Rx #:[id number] Oral 450 Output: Stool 225 Other: # Voids 2 2 Stool Characteristics Liquid Liquid Liquid Weight Source [facility] Active Medications: Current Medications Acetaminophen (Tylenol) 650 mg PO Q6H PRN PRN Reason: Pain (Moderate) Stop: 04/04/18 16:58 Al Hydrox/Mg Hydrox/Simethicone (Maalox) 30 ml PO Q6H PRN PRN Reason: Upset Stomach / Indigestion Stop: 04/04/18 16:58 Ascorbic Acid (Vitamin C) 500 mg PO BID [facility] Stop: 04/04/18 16:59 Last Admin: 02/05/18 16:41 Dose: Not Given Calcium/Vitamin D (Oscal W/Vitamin D) 1 tab PO DAILY [facility] Stop: 04/05/18 08:59 Last Admin: 02/05/18 11:32 Dose: Not Given Ferrous Sulfate (Iron) 325 mg PO BID [facility] Stop: 04/04/18 16:59 Last Admin: 02/05/18 16:41 Dose: Not Given Dextrose/Sodium Chloride (D5-0.45ns) 1,000 mls @ 75 mls/hr IV .[id number] [facility] Stop: 04/04/18 14:44 Last Admin: 02/05/18 16:31 Dose: 75 mls/hr Megestrol Acetate (Megace) 400 mg PO DAILY [facility] Stop: 04/04/18 17:59 Last Admin: 02/05/18 11:32 Dose: Not Given Nystatin (Nystatin) 100,000 units PO TID [facility] Stop: 04/04/18 20:59 Last Admin: 02/05/18 16:19 Dose: Not Given Pantoprazole Sodium (Protonix) 40 mg IVP BID [facility] Stop: 04/06/18 16:59 Prochlorperazine Maleate (Compazine) 10 mg PO Q6H PRN; Protocol PRN Reason: NAUSEA/VOMITING Stop: 04/04/18 16:58 General: Alert, No acute distress, Other (DEHYDRATED CACHECTIC) HEENT: Atraumatic Neck: Supple, JVD Cardiovascular: Regular rate Lungs: Clear to auscultation Abdomen: Soft - Procedures Procedures: Procedures Procedure Code Date FLUOROSCOPY OF SUP VENA CAVA USING L OSM CONTRAST, GUIDANCE [id number] 12/11/16 INSERTION OF INFUSION DEV INTO SUP VENA CAVA, PERC APPROACH [id number] 12/11/16 REMOVAL OF INFUSION DEVICE FROM UPPER VEIN, OPEN APPROACH [id number] 12/11/16 REMOVAL OF TIVAD FROM TRUNK SUBCU/FASCIA, OPEN APPROACH [id number] 09/25/17 REMOVAL TUNNELED CV CATH [id number] 09/25/17 REMOVAL TUNNELED CV CATH [id number] 12/11/16 Assessment/Plan - Problem List Patient Problems: All Active Problems Failure to thrive (Acute) [id number] H/O colectomy (Acute) Z90.49 HTN (hypertension) (Acute) I10 Leukocytosis (Acute) D72.829 Malnutrition (Acute) E46 S/P colostomy (Acute) Z93.3 UTI (urinary tract infection) (Acute) - Assessment Assessment: * Metastatic colon cancer to liver and retroperitonium with elevated CEA * Poor functional status and failure to thrive * Left hydronephrosis, sever; will need stent placement Not chemo candidate, supportive care Nutritional Asmnt/Malnutr-PDOC - Dietary Evaluation Malnutrition Findings (Please click <Entered> for more info): Nutritional Asmnt/Malnutrition Start: 02/04/18 17: 47 Text: Status: Active Freq: Protocol: Document 02/04/18 17:47 BLAINE (Rec: 02/04/18 18:05 MAKG [email or web address]) Nutritional Asmnt/Malnutrition Patient General Information Nutritional Screening High Risk Diagnosis dehydration, failure to thrive Pertinent Medical Hx/Surgical Hx HTN, dyslipidemia, colon CA, colostomy Subjective Information Pt seen lying in bed at time of visit, awake and alert. Per H&P, pt admitted for poor intake and wt loss of 7 lb in one last month. Pt reported good appetite and want solid food rather than liquid food. Explained clear liquid diet for pt and pt verbalized understood. Per nurse note, pt has EGD and swallow eval scheduled tommorror 02/05. Current Diet Order/ Nutrition Support clear liquid Pertinent Medications vit C, oscal w/vit D, D5-0. 45ns, iron, megace Pertinent Labs 02/04 Na 127, Cl 91, Cr 0.4, glucose 143 02/03 Na 128, Cl 92, Cr 0.5, phos 2.0, alb 3.5 Nutritional Hx/Data Height 1.63 m Height (Calculated Centimeters) 162.6 Current Weight (lbs) 42.638 kg Weight (Calculated Kilograms) 42.6 Weight (Calculated Grams) 30991.7 [place] Body Weight 120 Body Mass Index (BMI) 16.1 Weight Status Underweight GI Symptoms GI Symptoms None Difficult in: None Usual diet at home pt stated she was on pureed diet d/t no teeth Skin Integrity/Comment: rash to bilateral toes and stoma site pressure area to coccyx robyn 12 Estimated Nutritional Goals BEE in Kcals: Using Current wt Calories/Kcals/Kg 30-35 Kcals Calculated 3699-9762 Protein: Using Current wt Protein g/k.2-1.4 Protein Calculated 52-60 Fluid: ml 1290-1505ml (1ml/1kcal) Nutritional Problem 1. Problem Problem underweight Etiology poor intake per H&P Signs/Symptoms: BMI 16 and recent wt loss of 7lb Malnutrition Alert Is there a minimum of two criteria No selected? Query Text:Check all the applicable criteria. A minimum of two criteria are recommended for diagnosis of either severe or non-severe malnutrition. Intervention/Recommendation Comments 1. Add Ensure clear to current clear liquid diet for extra kcal/protein per protocol. Recommend regular diet and texture per SPL. Add supplement if PO intake low oce diet advanced. 2. Monitor PO intake, wt, labs and skin integrity 3. F/U as high risk in 2-3 days, 02/06-02/07 Expected Outcomes/Goals Expected Outcomes/Goals 1. PO intake to meet at least 75% of nutritional needs. 2. Wt stability, skin to remain intact, labs to approach WNL.
--- NOTE | 2018-02-05 17:39 | Operative Report ---
DATE OF SURGERY: 02/05/2018 PROCEDURE: 1. Esophagogastroduodenoscopy with dilation using Savary to 17 mm. 2. Esophagogastroduodenoscopy with biopsy. INDICATION FOR PROCEDURE: Dysphagia. CONSENT: Informed consent was obtained from the patient after planning benefits and risks including infection, bleeding, perforation, . ANESTHESIA USED: Demerol 37.5 mg, Versed 1.5 mg. PREOPERATIVE DIAGNOSIS: Dysphagia. POSTOPERATIVE DIAGNOSES: 1. Distal esophageal ulcer, suspicious for malignancy, status post biopsy. 2. Tightness of the distal esophagus, possibly due to edema, status post dilation to 17 mm Savary. 3. Diffuse gastritis with erosions. 4. Duodenitis with erosions. DESCRIPTION OF PROCEDURE: The patient was placed in left lateral position. Upper Olympus endoscope was introduced into the mouth and advanced to the esophagus, which was intubated under direct visualization. Esophageal mucosa was examined on the way down. It showed significant erythema, some tightness. There was a large ulcer seen at the distal third, about 3 or 4 cm above the Z line. There was significant edema of the area surrounding the ulcer looked suspicious for malignancy. The distal end was tortuous and some tightness as well. Scope could be advanced to the stomach where the gastric mucosa showed multiple erosions and areas of erythema consistent with gastritis. Scope was retroflexed to examine the cardia and fundus. Scope was then straightened and advanced through the pylorus to the duodenum where the bulb and second part were examined and they both showed erosions and duodenitis. Scope was then withdrawn to the stomach. Same examination was repeated a couple of times in the beginning. We had hard time insufflating the area because of lack of air, but then once it is cleared, all of the above findings were noted. Biopsies were taken from the antrum for CLOtest. Scope was then withdrawn to the esophagus where biopsies were taken from the ulcer. Then, scope was advanced to the stomach and guidewire was inserted through the scope. Then, over a guidewire, scope was withdrawn and esophagus was dilated to 17 mm Savary, which was the one available there. The patient tolerated the procedure well. There were no immediate postoperative complications. RECOMMENDATIONS: 1. Follow up biopsy results. 2. Treat H. pylori positive. 3. PPI b.i.d. 4. Soft diet. 5. If this ulcer showed malignancy, then patient should see a surgeon and oncologist and also, endoscopic ultrasound. If the ulcer is benign, then patient should continue the ___ treatment, have another scope in 2-3 months to document healing and improvement. Thank you Dr. Choudhury for allowing me to participate in the care of the patient. If you have any further questions, please let me know. JOB# [id number]
[2018-02-06 05:16] LABS: HEMATOCRIT 34.4 % (41.0-60); HEMOGLOBIN 11.4 gm/dL (12-16); MEAN CELL VOLUME 85.7 fl (81-100); MEAN CORPUSCULAR HEMOGLOBIN 28.5 pg (27.0-31.0); MEAN CORPUSCULAR HGB CONC 33.2 pg (28.0-36.0); MEAN PLATELET VOLUME 6.9 fl; PLATELET COUNT 263 Th/cmm (150-400); RED BLOOD COUNT 4.01 Mil/cmm (3.80-5.20); RED CELL DISTRIBUTION WIDTH 15.7 % (11.5-20.0)
[2018-02-06 05:22] LABS: WHITE BLOOD COUNT 13.9 Th/cmm (4.8-10.8)
[2018-02-06 06:09] LABS: ANION GAP 13.6 (7.0-16.0); BUN - UREA NITROGEN 12 mg/dL (7-25); CARBON DIOXIDE 19.5 mEq/L (21.0-31.0); CHLORIDE 97 mEq/L (98-107); CREATININE - SERUM 0.5 mg/dL (0.6-1.2); GLUCOSE 154 mg/dL (70-105); POTASSIUM SERUM 4.1 mEq/L (3.5-5.1); SODIUM SERUM 126 mEq/L (136-145)
[2018-02-06] MEDS: D5-0.45NS 1,000 ML IV SCH (06:24)
[2018-02-06 08:54] LABS: BAND NEUTROPHILE 0 % (0-10); EOSINOPHIL 1 % (0-5); LYMPHOCYTE 5 % (20-50); MONOCYTE 4 % (2-10); NEUTROPHILS 90 % (40-80)
[2018-02-06] MEDS: Multivitamin w/ Minerals Tab PO SCH (09:10)
[2018-02-06] MEDS: Calcium Carb/Vit D 500 mg/200 U Tab PO SCH (09:10)
[2018-02-06] MEDS: Ferrous Sulfate 325 MG TAB PO SCH ×2 (09:10→16:54)
--- NOTE | 2018-02-06 10:21 | General Progress Note ---
Subjective - Review of Systems Service Date: 02/06/18 Objective - Results Result Diagrams: 02/06/18 05:00 02/06/18 05:00 Recent Labs: Laboratory Last Values WBC 13.9 Th/cmm (4.8-10.8) H D 02/06/18 05:00 RBC 4.01 Mil/cmm (3.80-5.20) 02/06/18 05:00 Hgb 11.4 gm/dL (12-16) L 02/06/18 05:00 Hct 34.4 % (41.0-60) L 02/06/18 05:00 MCV 85.7 fl (81-100) 02/06/18 05:00 MCH 28.5 pg (27.0-31.0) 02/06/18 05:00 MCHC Differential 33.2 pg (28.0-36.0) 02/06/18 05:00 RDW 15.7 % (11.5-20.0) 02/06/18 05:00 Plt Count 263 Th/cmm (150-400) 02/06/18 05:00 MPV 6.9 fl 02/06/18 05:00 Add Manual Diff YES 02/06/18 05:00 Neutrophils % 89.7 % (40.0-80.0) H 02/03/18 12:58 Band Neutrophils % 0 % (0-10) 02/06/18 05:00 Lymphocytes % 7.0 % (20.0-50.0) L 02/03/18 12:58 Monocytes % 2.7 % (2.0-10.0) 02/03/18 12:58 Eosinophils % 0.6 % (0.0-5.0) 02/03/18 12:58 Basophils % 0.0 % (0.0-2.0) 02/03/18 12:58 Neutrophils (Manual) 90 % (40-80) H 02/06/18 05:00 Lymphocytes 5 % (20-50) L 02/06/18 05:00 Monocytes 4 % (2-10) 02/06/18 05:00 Eosinophils 1 % (0-5) 02/06/18 05:00 Platelet Estimate ADEQUATE (NORMAL) 02/05/18 05:48 PT 12.5 SECONDS (9.5-11.5) H 02/04/18 05:50 INR 1.21 (0.5-1.4) 02/04/18 05:50 Sodium 126 mEq/L (136-145) L 02/06/18 05:00 Potassium 4.1 mEq/L (3.5-5.1) 02/06/18 05:00 Chloride 97 mEq/L (98-107) L 02/06/18 05:00 Carbon Dioxide 19.5 mEq/L (21.0-31.0) L 02/06/18 05:00 Anion Gap 13.6 (7.0-16.0) 02/06/18 05:00 BUN 12 mg/dL (7-25) 02/06/18 05:00 Creatinine 0.5 mg/dL (0.6-1.2) L 02/06/18 05:00 Est GFR ( Amer) TNP 02/06/18 05:00 Est GFR (Non-Af Amer) TNP 02/06/18 05:00 BUN/Creatinine Ratio 24.0 02/06/18 05:00 Glucose 154 mg/dL (70-105) H 02/06/18 05:00 Calcium 8.0 mg/dL (8.6-10.3) L 02/06/18 05:00 Phosphorus 2.0 mg/dL (2.5-5.0) L 02/03/18 12:58 Magnesium 2.1 mg/dL (1.9-2.7) 02/03/18 12:58 Total Bilirubin 0.5 mg/dL (0.3-1.0) 02/05/18 05:48 AST 19 U/L (13-39) 02/05/18 05:48 ALT 7 U/L (7-52) 02/05/18 05:48 Alkaline Phosphatase 142 U/L (34-104) H 02/05/18 05:48 Total Protein 5.9 gm/dL (6.0-8.3) L 02/05/18 05:48 Albumin 3.0 gm/dL (3.7-5.3) L 02/05/18 05:48 Globulin 2.9 gm/dL 02/05/18 05:48 Albumin/Globulin Ratio 1.0 (1.0-1.8) 02/05/18 05:48 Amylase 44 U/L (29-103) 02/03/18 12:58 Lipase 16 U/L (11-82) 02/03/18 12:58 Carcinoembryonic Ag 181.2 ng/mL (0.0-4.7) H 02/04/18 05:50 Urine Source RANDOM 02/04/18 04:30 Urine Color YELLOW 02/04/18 04:30 Urine Clarity SLIGHT CLOUDY (CLEAR) H 02/04/18 04:30 Urine pH 6.5 (4.6 - 8.0) 02/04/18 04:30 Ur Specific [place] 1.010 (1.005-1.030) 02/04/18 04:30 Urine Protein NEGATIVE mg/dL (NEGATIVE) 02/04/18 04:30 Urine Glucose (UA) NEGATIVE mg/dL (NEGATIVE) 02/04/18 04:30 Urine Ketones 15 mg/dL (NEGATIVE) H 02/04/18 04:30 Urine Blood TRACE (NEGATIVE) 02/04/18 04:30 Urine Nitrate NEGATIVE (NEGATIVE) 02/04/18 04:30 Urine Bilirubin NEGATIVE (NEGATIVE) 02/04/18 04:30 Urine Urobilinogen 0.2 E.U./dL (0.2 - 1.0) 02/04/18 04:30 Ur Leukocyte Esterase TRACE (NEGATIVE) H 02/04/18 04:30 Urine RBC 0-2 /hpf (0-5) 02/04/18 04:30 Urine WBC 2-5 /hpf (0-5) 02/04/18 04:30 Ur Epithelial Cells FEW /lpf (FEW) 02/04/18 04:30 Urine Bacteria FEW /hpf (NONE SEEN) 02/04/18 04:30 - Physical Exam Vitals and I&O: Vital Signs Temp 97.8 F 02/06/18 08:00 Pulse 102 02/06/18 08:00 Resp 18 02/06/18 08:00 BP 114/66 02/06/18 08:00 Pulse Ox 94 02/06/18 08:00 Intake & Output 02/05/18 02/06/18 02/06/18 18:59 06:59 18:59 Intake Total 910 1100 Output Total 200 Balance 910 900 Weight (lbs) 59.874 kg Intake: Intake, IV Amount 910 1000 D5-0.45NS 1,000 ml @ 75 910 1000 mls/hr IV .[id number] [facility] Rx #:[id number] Oral 100 Output: Stool 200 Other: Stool Characteristics Liquid Liquid Weight Source Bedscale Active Medications: Current Medications Acetaminophen (Tylenol) 650 mg PO Q6H PRN PRN Reason: Pain (Moderate) Stop: 04/04/18 16:58 Al Hydrox/Mg Hydrox/Simethicone (Maalox) 30 ml PO Q6H PRN PRN Reason: Upset Stomach / Indigestion Stop: 04/04/18 16:58 Ascorbic Acid (Vitamin C) 500 mg PO BID [facility] Stop: 04/04/18 16:59 Last Admin: 02/06/18 09:12 Dose: 500 mg Calcium/Vitamin D (Oscal W/Vitamin D) 1 tab PO DAILY [facility] Stop: 04/05/18 08:59 Last Admin: 02/06/18 09:10 Dose: 1 tab Ferrous Sulfate (Iron) 325 mg PO BID [facility] Stop: 04/04/18 16:59 Last Admin: 02/06/18 09:10 Dose: 325 mg Dextrose/Sodium Chloride (D5-0.45ns) 1,000 mls @ 75 mls/hr IV .[id number] [facility] Stop: 04/04/18 14:44 Last Admin: 02/06/18 06:24 Dose: 75 mls/hr Megestrol Acetate (Megace) 400 mg PO DAILY [facility] Stop: 04/04/18 17:59 Last Admin: 02/06/18 09:12 Dose: 400 mg Nystatin (Nystatin) 100,000 units PO TID [facility] Stop: 04/04/18 20:59 Last Admin: 02/06/18 09:10 Dose: 100,000 units Pantoprazole Sodium (Protonix) 40 mg IVP BID [facility] Stop: 04/06/18 16:59 Last Admin: 02/06/18 09:12 Dose: Not Given Prochlorperazine Maleate (Compazine) 10 mg PO Q6H PRN; Protocol PRN Reason: NAUSEA/VOMITING Stop: 04/04/18 16:58 General: Alert, No acute distress, Other (DEHYDRATED CACHECTIC) HEENT: Atraumatic Neck: Supple, JVD Cardiovascular: Regular rate Lungs: Clear to auscultation Abdomen: Soft - Procedures Procedures: Procedures Procedure Code Date FLUOROSCOPY OF SUP VENA CAVA USING L OSM CONTRAST, GUIDANCE [id number] 12/11/16 INSERTION OF INFUSION DEV INTO SUP VENA CAVA, PERC APPROACH [id number] 12/11/16 REMOVAL OF INFUSION DEVICE FROM UPPER VEIN, OPEN APPROACH [id number] 12/11/16 REMOVAL OF TIVAD FROM TRUNK SUBCU/FASCIA, OPEN APPROACH [id number] 09/25/17 REMOVAL TUNNELED CV CATH [id number] 09/25/17 REMOVAL TUNNELED CV CATH [id number] 12/11/16 Assessment/Plan - Problem List Patient Problems: All Active Problems Failure to thrive (Acute) [id number] H/O colectomy (Acute) Z90.49 HTN (hypertension) (Acute) I10 Leukocytosis (Acute) D72.829 Malnutrition (Acute) E46 S/P colostomy (Acute) Z93.3 UTI (urinary tract infection) (Acute) - Assessment Assessment: * Metastatic colon cancer to liver and retroperitonium with elevated CEA * Poor functional status and failure to thrive * Left hydronephrosis, sever; will need stent placement Not chemo candidate, supportive care Nutritional Asmnt/Malnutr-PDOC - Dietary Evaluation Malnutrition Findings (Please click <Entered> for more info): Nutritional Asmnt/Malnutrition Start: 02/04/18 17: 47 Text: Status: Active Freq: Protocol: Document 02/04/18 17:47 WICHO (Rec: 02/04/18 18:05 MAKG [email or web address]) Nutritional Asmnt/Malnutrition Patient General Information Nutritional Screening High Risk Diagnosis dehydration, failure to thrive Pertinent Medical Hx/Surgical Hx HTN, dyslipidemia, colon CA, colostomy Subjective Information Pt seen lying in bed at time of visit, awake and alert. Per H&P, pt admitted for poor intake and wt loss of 7 lb in one last month. Pt reported good appetite and want solid food rather than liquid food. Explained clear liquid diet for pt and pt verbalized understood. Per nurse note, pt has EGD and swallow eval scheduled tommorror 02/05. Current Diet Order/ Nutrition Support clear liquid Pertinent Medications vit C, oscal w/vit D, D5-0. 45ns, iron, megace Pertinent Labs 02/04 Na 127, Cl 91, Cr 0.4, glucose 143 02/03 Na 128, Cl 92, Cr 0.5, phos 2.0, alb 3.5 Nutritional Hx/Data Height 1.63 m Height (Calculated Centimeters) 162.6 Current Weight (lbs) 42.638 kg Weight (Calculated Kilograms) 42.6 Weight (Calculated Grams) 58867.7 [place] Body Weight 120 Body Mass Index (BMI) 16.1 Weight Status Underweight GI Symptoms GI Symptoms None Difficult in: None Usual diet at home pt stated she was on pureed diet d/t no teeth Skin Integrity/Comment: rash to bilateral toes and stoma site pressure area to coccyx robyn 12 Estimated Nutritional Goals BEE in Kcals: Using Current wt Calories/Kcals/Kg 30-35 Kcals Calculated 5859-9593 Protein: Using Current wt Protein g/k.2-1.4 Protein Calculated 52-60 Fluid: ml 1290-1505ml (1ml/1kcal) Nutritional Problem 1. Problem Problem underweight Etiology poor intake per H&P Signs/Symptoms: BMI 16 and recent wt loss of 7lb Malnutrition Alert Is there a minimum of two criteria No selected? Query Text:Check all the applicable criteria. A minimum of two criteria are recommended for diagnosis of either severe or non-severe malnutrition. Intervention/Recommendation Comments 1. Add Ensure clear to current clear liquid diet for extra kcal/protein per protocol. Recommend regular diet and texture per SPL. Add supplement if PO intake low oce diet advanced. 2. Monitor PO intake, wt, labs and skin integrity 3. F/U as high risk in 2-3 days, 02/06-02/07 Expected Outcomes/Goals Expected Outcomes/Goals 1. PO intake to meet at least 75% of nutritional needs. 2. Wt stability, skin to remain intact, labs to approach WNL.
[2018-02-06] MEDS ORDERED: Diatrizoate Meglumine/Diatri 30 mL Sol PO ONE (11:19)
[2018-02-06] MEDS ORDERED: IOHEXOL 300mgI/mL 100 ML VIAL PO ONE (11:19)
--- NOTE | 2018-02-06 12:42 | Infectious Disease Prog Note ---
Infectious Disease Subjective - Review of Systems Service Date: 02/06/18 Subjective: No fever. Infectious Disease Objective - Results Result Diagrams: 02/06/18 05:00 02/06/18 05:00 Recent Labs: Laboratory Last Values WBC 13.9 Th/cmm (4.8-10.8) H D 02/06/18 05:00 RBC 4.01 Mil/cmm (3.80-5.20) 02/06/18 05:00 Hgb 11.4 gm/dL (12-16) L 02/06/18 05:00 Hct 34.4 % (41.0-60) L 02/06/18 05:00 MCV 85.7 fl (81-100) 02/06/18 05:00 MCH 28.5 pg (27.0-31.0) 02/06/18 05:00 MCHC Differential 33.2 pg (28.0-36.0) 02/06/18 05:00 RDW 15.7 % (11.5-20.0) 02/06/18 05:00 Plt Count 263 Th/cmm (150-400) 02/06/18 05:00 MPV 6.9 fl 02/06/18 05:00 Add Manual Diff YES 02/06/18 05:00 Neutrophils % 89.7 % (40.0-80.0) H 02/03/18 12:58 Band Neutrophils % 0 % (0-10) 02/06/18 05:00 Lymphocytes % 7.0 % (20.0-50.0) L 02/03/18 12:58 Monocytes % 2.7 % (2.0-10.0) 02/03/18 12:58 Eosinophils % 0.6 % (0.0-5.0) 02/03/18 12:58 Basophils % 0.0 % (0.0-2.0) 02/03/18 12:58 Neutrophils (Manual) 90 % (40-80) H 02/06/18 05:00 Lymphocytes 5 % (20-50) L 02/06/18 05:00 Monocytes 4 % (2-10) 02/06/18 05:00 Eosinophils 1 % (0-5) 02/06/18 05:00 Platelet Estimate ADEQUATE (NORMAL) 02/05/18 05:48 PT 12.5 SECONDS (9.5-11.5) H 02/04/18 05:50 INR 1.21 (0.5-1.4) 02/04/18 05:50 Sodium 126 mEq/L (136-145) L 02/06/18 05:00 Potassium 4.1 mEq/L (3.5-5.1) 02/06/18 05:00 Chloride 97 mEq/L (98-107) L 02/06/18 05:00 Carbon Dioxide 19.5 mEq/L (21.0-31.0) L 02/06/18 05:00 Anion Gap 13.6 (7.0-16.0) 02/06/18 05:00 BUN 12 mg/dL (7-25) 02/06/18 05:00 Creatinine 0.5 mg/dL (0.6-1.2) L 02/06/18 05:00 Est GFR ( Amer) TNP 02/06/18 05:00 Est GFR (Non-Af Amer) TNP 02/06/18 05:00 BUN/Creatinine Ratio 24.0 02/06/18 05:00 Glucose 154 mg/dL (70-105) H 02/06/18 05:00 Calcium 8.0 mg/dL (8.6-10.3) L 02/06/18 05:00 Phosphorus 2.0 mg/dL (2.5-5.0) L 02/03/18 12:58 Magnesium 2.1 mg/dL (1.9-2.7) 02/03/18 12:58 Total Bilirubin 0.5 mg/dL (0.3-1.0) 02/05/18 05:48 AST 19 U/L (13-39) 02/05/18 05:48 ALT 7 U/L (7-52) 02/05/18 05:48 Alkaline Phosphatase 142 U/L (34-104) H 02/05/18 05:48 Total Protein 5.9 gm/dL (6.0-8.3) L 02/05/18 05:48 Albumin 3.0 gm/dL (3.7-5.3) L 02/05/18 05:48 Globulin 2.9 gm/dL 02/05/18 05:48 Albumin/Globulin Ratio 1.0 (1.0-1.8) 02/05/18 05:48 Amylase 44 U/L (29-103) 02/03/18 12:58 Lipase 16 U/L (11-82) 02/03/18 12:58 Carcinoembryonic Ag 181.2 ng/mL (0.0-4.7) H 02/04/18 05:50 Urine Source RANDOM 02/04/18 04:30 Urine Color YELLOW 02/04/18 04:30 Urine Clarity SLIGHT CLOUDY (CLEAR) H 02/04/18 04:30 Urine pH 6.5 (4.6 - 8.0) 02/04/18 04:30 Ur Specific [place] 1.010 (1.005-1.030) 02/04/18 04:30 Urine Protein NEGATIVE mg/dL (NEGATIVE) 02/04/18 04:30 Urine Glucose (UA) NEGATIVE mg/dL (NEGATIVE) 02/04/18 04:30 Urine Ketones 15 mg/dL (NEGATIVE) H 02/04/18 04:30 Urine Blood TRACE (NEGATIVE) 02/04/18 04:30 Urine Nitrate NEGATIVE (NEGATIVE) 02/04/18 04:30 Urine Bilirubin NEGATIVE (NEGATIVE) 02/04/18 04:30 Urine Urobilinogen 0.2 E.U./dL (0.2 - 1.0) 02/04/18 04:30 Ur Leukocyte Esterase TRACE (NEGATIVE) H 02/04/18 04:30 Urine RBC 0-2 /hpf (0-5) 02/04/18 04:30 Urine WBC 2-5 /hpf (0-5) 02/04/18 04:30 Ur Epithelial Cells FEW /lpf (FEW) 02/04/18 04:30 Urine Bacteria FEW /hpf (NONE SEEN) 02/04/18 04:30 - Physical Exam Vitals and I&O: Vital Signs Temp 97.7 F 02/06/18 12:00 Pulse 100 02/06/18 12:00 Resp 19 02/06/18 12:00 BP 102/53 02/06/18 12:00 Pulse Ox 98 02/06/18 12:00 Intake & Output 02/05/18 02/06/18 02/06/18 18:59 06:59 18:59 Intake Total 910 1100 Output Total 200 Balance 910 900 Weight (lbs) 59.874 kg Intake: Intake, IV Amount 910 1000 D5-0.45NS 1,000 ml @ 75 910 1000 mls/hr IV .[id number] [facility] Rx #:[id number] Oral 100 Output: Stool 200 Other: Stool Characteristics Liquid Liquid Weight Source Bedscale Active Medications: Current Medications Acetaminophen (Tylenol) 650 mg PO Q6H PRN PRN Reason: Pain (Moderate) Stop: 04/04/18 16:58 Al Hydrox/Mg Hydrox/Simethicone (Maalox) 30 ml PO Q6H PRN PRN Reason: Upset Stomach / Indigestion Stop: 04/04/18 16:58 Ascorbic Acid (Vitamin C) 500 mg PO BID [facility] Stop: 04/04/18 16:59 Last Admin: 02/06/18 09:12 Dose: 500 mg Calcium/Vitamin D (Oscal W/Vitamin D) 1 tab PO DAILY [facility] Stop: 04/05/18 08:59 Last Admin: 02/06/18 09:10 Dose: 1 tab Ferrous Sulfate (Iron) 325 mg PO BID [facility] Stop: 04/04/18 16:59 Last Admin: 02/06/18 09:10 Dose: 325 mg Dextrose/Sodium Chloride (D5-0.45ns) 1,000 mls @ 75 mls/hr IV .[id number] [facility] Stop: 04/04/18 14:44 Last Admin: 02/06/18 06:24 Dose: 75 mls/hr Megestrol Acetate (Megace) 400 mg PO DAILY [facility] Stop: 04/04/18 17:59 Last Admin: 02/06/18 09:12 Dose: 400 mg Nystatin (Nystatin) 100,000 units PO TID [facility] Stop: 04/04/18 20:59 Last Admin: 02/06/18 09:10 Dose: 100,000 units Pantoprazole Sodium (Protonix) 40 mg IVP BID [facility] Stop: 04/06/18 16:59 Last Admin: 02/06/18 09:12 Dose: Not Given Prochlorperazine Maleate (Compazine) 10 mg PO Q6H PRN; Protocol PRN Reason: NAUSEA/VOMITING Stop: 04/04/18 16:58 General: no acute distress, cachectic HEENT: atraumatic, normocephalic, PERRLA Neck: supple, no thyromegaly Cardiovascular: S1S2, regular Lungs: clear to auscultation bilaterally, clear to percussion Abdomen: soft, no tender, no distended, no mass Extremities: no cyanosis, no clubbing, no edema Neurological: awake, alert, oriented Skin: intact - Procedures Procedures: Procedures Procedure Code Date FLUOROSCOPY OF SUP VENA CAVA USING L OSM CONTRAST, GUIDANCE [id number] 12/11/16 INSERTION OF INFUSION DEV INTO SUP VENA CAVA, PERC APPROACH [id number] 12/11/16 REMOVAL OF INFUSION DEVICE FROM UPPER VEIN, OPEN APPROACH [id number] 12/11/16 REMOVAL OF TIVAD FROM TRUNK SUBCU/FASCIA, OPEN APPROACH [id number] 09/25/17 REMOVAL TUNNELED CV CATH [id number] 09/25/17 REMOVAL TUNNELED CV CATH [id number] 12/11/16 Infectious Disease Assmt/Plan - Problem List Patient Problems: All Active Problems Failure to thrive (Acute) [id number] H/O colectomy (Acute) Z90.49 HTN (hypertension) (Acute) I10 Leukocytosis (Acute) D72.829 Malnutrition (Acute) E46 S/P colostomy (Acute) Z93.3 UTI (urinary tract infection) (Acute) - Assessment Assessment: 1. Leukocytosis, reactive versus sepsis. 2. Failure to thrive. 3. Protein calorie malnutrition. 4. Colon cancer. 5. Status post colostomy and colectomy. 6. History of hypertension. - Plan Plan: Off antibiotics. Nutritional Asmnt/Malnutr-PDOC - Dietary Evaluation Malnutrition Findings (Please click <Entered> for more info): Nutritional Asmnt/Malnutrition Start: 02/04/18 17: 47 Text: Status: Active Freq: Protocol: Document 02/04/18 17:47 HENG (Rec: 02/04/18 18:05 [facility] [email or web address]) Nutritional Asmnt/Malnutrition Patient General Information Nutritional Screening High Risk Diagnosis dehydration, failure to thrive Pertinent Medical Hx/Surgical Hx HTN, dyslipidemia, colon CA, colostomy Subjective Information Pt seen lying in bed at time of visit, awake and alert. Per H&P, pt admitted for poor intake and wt loss of 7 lb in one last month. Pt reported good appetite and want solid food rather than liquid food. Explained clear liquid diet for pt and pt verbalized understood. Per nurse note, pt has EGD and swallow eval scheduled tommorror 02/05. Current Diet Order/ Nutrition Support clear liquid Pertinent Medications vit C, oscal w/vit D, D5-0. 45ns, iron, megace Pertinent Labs 02/04 Na 127, Cl 91, Cr 0.4, glucose 143 02/03 Na 128, Cl 92, Cr 0.5, phos 2.0, alb 3.5 Nutritional Hx/Data Height 1.63 m Height (Calculated Centimeters) 162.6 Current Weight (lbs) 42.638 kg Weight (Calculated Kilograms) 42.6 Weight (Calculated Grams) 06111.7 [place] Body Weight 120 Body Mass Index (BMI) 16.1 Weight Status Underweight GI Symptoms GI Symptoms None Difficult in: None Usual diet at home pt stated she was on pureed diet d/t no teeth Skin Integrity/Comment: rash to bilateral toes and stoma site pressure area to coccyx robyn 12 Estimated Nutritional Goals BEE in Kcals: Using Current wt Calories/Kcals/Kg 30-35 Kcals Calculated 2417-5448 Protein: Using Current wt Protein g/k.2-1.4 Protein Calculated 52-60 Fluid: ml 1290-1505ml (1ml/1kcal) Nutritional Problem 1. Problem Problem underweight Etiology poor intake per H&P Signs/Symptoms: BMI 16 and recent wt loss of 7lb Malnutrition Alert Is there a minimum of two criteria No selected? Query Text:Check all the applicable criteria. A minimum of two criteria are recommended for diagnosis of either severe or non-severe malnutrition. Intervention/Recommendation Comments 1. Add Ensure clear to current clear liquid diet for extra kcal/protein per protocol. Recommend regular diet and texture per SPL. Add supplement if PO intake low oce diet advanced. 2. Monitor PO intake, wt, labs and skin integrity 3. F/U as high risk in 2-3 days, 02/06-02/07 Expected Outcomes/Goals Expected Outcomes/Goals 1. PO intake to meet at least 75% of nutritional needs. 2. Wt stability, skin to remain intact, labs to approach WNL.
--- NOTE | 2018-02-06 16:48 | Internal Medicine Prog Note ---
Internal Medicine Subjective - Subjective Patient is:: awake, verbal Per staff patient has:: tolerating meds Internal Medicine Objective - Results Result Diagrams: 02/06/18 05:00 02/06/18 05:00 Recent Labs: Laboratory Last Values WBC 13.9 Th/cmm (4.8-10.8) H D 02/06/18 05:00 RBC 4.01 Mil/cmm (3.80-5.20) 02/06/18 05:00 Hgb 11.4 gm/dL (12-16) L 02/06/18 05:00 Hct 34.4 % (41.0-60) L 02/06/18 05:00 MCV 85.7 fl (81-100) 02/06/18 05:00 MCH 28.5 pg (27.0-31.0) 02/06/18 05:00 MCHC Differential 33.2 pg (28.0-36.0) 02/06/18 05:00 RDW 15.7 % (11.5-20.0) 02/06/18 05:00 Plt Count 263 Th/cmm (150-400) 02/06/18 05:00 MPV 6.9 fl 02/06/18 05:00 Add Manual Diff YES 02/06/18 05:00 Neutrophils % 89.7 % (40.0-80.0) H 02/03/18 12:58 Band Neutrophils % 0 % (0-10) 02/06/18 05:00 Lymphocytes % 7.0 % (20.0-50.0) L 02/03/18 12:58 Monocytes % 2.7 % (2.0-10.0) 02/03/18 12:58 Eosinophils % 0.6 % (0.0-5.0) 02/03/18 12:58 Basophils % 0.0 % (0.0-2.0) 02/03/18 12:58 Neutrophils (Manual) 90 % (40-80) H 02/06/18 05:00 Lymphocytes 5 % (20-50) L 02/06/18 05:00 Monocytes 4 % (2-10) 02/06/18 05:00 Eosinophils 1 % (0-5) 02/06/18 05:00 Platelet Estimate ADEQUATE (NORMAL) 02/05/18 05:48 PT 12.5 SECONDS (9.5-11.5) H 02/04/18 05:50 INR 1.21 (0.5-1.4) 02/04/18 05:50 Sodium 126 mEq/L (136-145) L 02/06/18 05:00 Potassium 4.1 mEq/L (3.5-5.1) 02/06/18 05:00 Chloride 97 mEq/L (98-107) L 02/06/18 05:00 Carbon Dioxide 19.5 mEq/L (21.0-31.0) L 02/06/18 05:00 Anion Gap 13.6 (7.0-16.0) 02/06/18 05:00 BUN 12 mg/dL (7-25) 02/06/18 05:00 Creatinine 0.5 mg/dL (0.6-1.2) L 02/06/18 05:00 Est GFR ( Amer) TNP 02/06/18 05:00 Est GFR (Non-Af Amer) TNP 02/06/18 05:00 BUN/Creatinine Ratio 24.0 02/06/18 05:00 Glucose 154 mg/dL (70-105) H 02/06/18 05:00 Calcium 8.0 mg/dL (8.6-10.3) L 02/06/18 05:00 Phosphorus 2.0 mg/dL (2.5-5.0) L 02/03/18 12:58 Magnesium 2.1 mg/dL (1.9-2.7) 02/03/18 12:58 Total Bilirubin 0.5 mg/dL (0.3-1.0) 02/05/18 05:48 AST 19 U/L (13-39) 02/05/18 05:48 ALT 7 U/L (7-52) 02/05/18 05:48 Alkaline Phosphatase 142 U/L (34-104) H 02/05/18 05:48 Total Protein 5.9 gm/dL (6.0-8.3) L 02/05/18 05:48 Albumin 3.0 gm/dL (3.7-5.3) L 02/05/18 05:48 Globulin 2.9 gm/dL 02/05/18 05:48 Albumin/Globulin Ratio 1.0 (1.0-1.8) 02/05/18 05:48 Amylase 44 U/L (29-103) 02/03/18 12:58 Lipase 16 U/L (11-82) 02/03/18 12:58 Carcinoembryonic Ag 181.2 ng/mL (0.0-4.7) H 02/04/18 05:50 Urine Source RANDOM 02/04/18 04:30 Urine Color YELLOW 02/04/18 04:30 Urine Clarity SLIGHT CLOUDY (CLEAR) H 02/04/18 04:30 Urine pH 6.5 (4.6 - 8.0) 02/04/18 04:30 Ur Specific [place] 1.010 (1.005-1.030) 02/04/18 04:30 Urine Protein NEGATIVE mg/dL (NEGATIVE) 02/04/18 04:30 Urine Glucose (UA) NEGATIVE mg/dL (NEGATIVE) 02/04/18 04:30 Urine Ketones 15 mg/dL (NEGATIVE) H 02/04/18 04:30 Urine Blood TRACE (NEGATIVE) 02/04/18 04:30 Urine Nitrate NEGATIVE (NEGATIVE) 02/04/18 04:30 Urine Bilirubin NEGATIVE (NEGATIVE) 02/04/18 04:30 Urine Urobilinogen 0.2 E.U./dL (0.2 - 1.0) 02/04/18 04:30 Ur Leukocyte Esterase TRACE (NEGATIVE) H 02/04/18 04:30 Urine RBC 0-2 /hpf (0-5) 02/04/18 04:30 Urine WBC 2-5 /hpf (0-5) 02/04/18 04:30 Ur Epithelial Cells FEW /lpf (FEW) 02/04/18 04:30 Urine Bacteria FEW /hpf (NONE SEEN) 02/04/18 04:30 - Physical Exam Vitals and I&O: Vital Signs Temp 97.8 F 02/06/18 15:02 Pulse 98 02/06/18 15:02 Resp 17 02/06/18 15:02 BP 112/58 02/06/18 15:02 Pulse Ox 96 02/06/18 15:02 Intake & Output 02/05/18 02/06/18 02/06/18 18:59 06:59 18:59 Intake Total 910 1100 Output Total 200 Balance 910 900 Weight (lbs) 59.874 kg Intake: Intake, IV Amount 910 1000 D5-0.45NS 1,000 ml @ 75 910 1000 mls/hr IV .[id number] [facility] Rx #:[id number] Oral 100 Output: Stool 200 Other: Stool Characteristics Liquid Liquid Weight Source Bedscale Active Medications: Current Medications Acetaminophen (Tylenol) 650 mg PO Q6H PRN PRN Reason: Pain (Moderate) Stop: 04/04/18 16:58 Al Hydrox/Mg Hydrox/Simethicone (Maalox) 30 ml PO Q6H PRN PRN Reason: Upset Stomach / Indigestion Stop: 04/04/18 16:58 Ascorbic Acid (Vitamin C) 500 mg PO BID [facility] Stop: 04/04/18 16:59 Last Admin: 02/06/18 09:12 Dose: 500 mg Calcium/Vitamin D (Oscal W/Vitamin D) 1 tab PO DAILY [facility] Stop: 04/05/18 08:59 Last Admin: 02/06/18 09:10 Dose: 1 tab Ferrous Sulfate (Iron) 325 mg PO BID [facility] Stop: 04/04/18 16:59 Last Admin: 02/06/18 09:10 Dose: 325 mg Dextrose/Sodium Chloride (D5-0.45ns) 1,000 mls @ 75 mls/hr IV .[id number] [facility] Stop: 04/04/18 14:44 Last Admin: 02/06/18 06:24 Dose: 75 mls/hr Megestrol Acetate (Megace) 400 mg PO DAILY [facility] Stop: 04/04/18 17:59 Last Admin: 02/06/18 09:12 Dose: 400 mg Nystatin (Nystatin) 100,000 units PO TID [facility] Stop: 04/04/18 20:59 Last Admin: 02/06/18 13:40 Dose: 100,000 units Pantoprazole Sodium (Protonix) 40 mg IVP BID [facility] Stop: 04/06/18 16:59 Last Admin: 02/06/18 09:12 Dose: Not Given Prochlorperazine Maleate (Compazine) 10 mg PO Q6H PRN; Protocol PRN Reason: NAUSEA/VOMITING Stop: 04/04/18 16:58 General: alert HEENT: NC/AT, PERRLA Neck: Supple Lungs: CTAB Cardiovascular: RRR, Normal S1, Normal S2 Abdomen: soft, non-distended, positive bowel sound Extremities: excoriation Neurological: alert - Procedures Procedures: Procedures Procedure Code Date FLUOROSCOPY OF SUP VENA CAVA USING L OSM CONTRAST, GUIDANCE [id number] 12/11/16 INSERTION OF INFUSION DEV INTO SUP VENA CAVA, PERC APPROACH [id number] 12/11/16 REMOVAL OF INFUSION DEVICE FROM UPPER VEIN, OPEN APPROACH [id number] 12/11/16 REMOVAL OF TIVAD FROM TRUNK SUBCU/FASCIA, OPEN APPROACH [id number] 09/25/17 REMOVAL TUNNELED CV CATH [id number] 09/25/17 REMOVAL TUNNELED CV CATH [id number] 12/11/16 Internal Medicine Assmt/Plan - Plan Plan: EGD/PEG Nutritional Asmnt/Malnutr-PDOC - Dietary Evaluation Malnutrition Findings (Please click <Entered> for more info): Nutritional Asmnt/Malnutrition Start: 02/04/18 17: 47 Text: Status: Active Freq: Protocol: Document 02/04/18 17:47 LCMAKG (Rec: 02/04/18 18:05 MAKG [id number]) Nutritional Asmnt/Malnutrition Patient General Information Nutritional Screening High Risk Diagnosis dehydration, failure to thrive Pertinent Medical Hx/Surgical Hx HTN, dyslipidemia, colon CA, colostomy Subjective Information Pt seen lying in bed at time of visit, awake and alert. Per H&P, pt admitted for poor intake and wt loss of 7 lb in one last month. Pt reported good appetite and want solid food rather than liquid food. Explained clear liquid diet for pt and pt verbalized understood. Per nurse note, pt has EGD and swallow eval scheduled tommorror 02/05. Current Diet Order/ Nutrition Support clear liquid Pertinent Medications vit C, oscal w/vit D, D5-0. 45ns, iron, megace Pertinent Labs 02/04 Na 127, Cl 91, Cr 0.4, glucose 143 02/03 Na 128, Cl 92, Cr 0.5, phos 2.0, alb 3.5 Nutritional Hx/Data Height 1.63 m Height (Calculated Centimeters) 162.6 Current Weight (lbs) 42.638 kg Weight (Calculated Kilograms) 42.6 Weight (Calculated Grams) 15748.7 [place] Body Weight 120 Body Mass Index (BMI) 16.1 Weight Status Underweight GI Symptoms GI Symptoms None Difficult in: None Usual diet at home pt stated she was on pureed diet d/t no teeth Skin Integrity/Comment: rash to bilateral toes and stoma site pressure area to coccyx robyn 12 Estimated Nutritional Goals BEE in Kcals: Using Current wt Calories/Kcals/Kg 30-35 Kcals Calculated 9224-0213 Protein: Using Current wt Protein g/k.2-1.4 Protein Calculated 52-60 Fluid: ml 1290-1505ml (1ml/1kcal) Nutritional Problem 1. Problem Problem underweight Etiology poor intake per H&P Signs/Symptoms: BMI 16 and recent wt loss of 7lb Malnutrition Alert Is there a minimum of two criteria No selected? Query Text:Check all the applicable criteria. A minimum of two criteria are recommended for diagnosis of either severe or non-severe malnutrition. Intervention/Recommendation Comments 1. Add Ensure clear to current clear liquid diet for extra kcal/protein per protocol. Recommend regular diet and texture per SPL. Add supplement if PO intake low oce diet advanced. 2. Monitor PO intake, wt, labs and skin integrity 3. F/U as high risk in 2-3 days, 02/06-02/07 Expected Outcomes/Goals Expected Outcomes/Goals 1. PO intake to meet at least 75% of nutritional needs. 2. Wt stability, skin to remain intact, labs to approach WNL.
--- NOTE | 2018-02-06 17:29 | GI Progress Note ---
Subjective - Review of Systems Service Date: 02/06/18 Events since last encounter: No events Subjective: Swallowing is better Objective - Results Result Diagrams: 02/06/18 05:00 02/06/18 05:00 Recent Labs: Laboratory Last Values WBC 13.9 Th/cmm (4.8-10.8) H D 02/06/18 05:00 RBC 4.01 Mil/cmm (3.80-5.20) 02/06/18 05:00 Hgb 11.4 gm/dL (12-16) L 02/06/18 05:00 Hct 34.4 % (41.0-60) L 02/06/18 05:00 MCV 85.7 fl (81-100) 02/06/18 05:00 MCH 28.5 pg (27.0-31.0) 02/06/18 05:00 MCHC Differential 33.2 pg (28.0-36.0) 02/06/18 05:00 RDW 15.7 % (11.5-20.0) 02/06/18 05:00 Plt Count 263 Th/cmm (150-400) 02/06/18 05:00 MPV 6.9 fl 02/06/18 05:00 Add Manual Diff YES 02/06/18 05:00 Neutrophils % 89.7 % (40.0-80.0) H 02/03/18 12:58 Band Neutrophils % 0 % (0-10) 02/06/18 05:00 Lymphocytes % 7.0 % (20.0-50.0) L 02/03/18 12:58 Monocytes % 2.7 % (2.0-10.0) 02/03/18 12:58 Eosinophils % 0.6 % (0.0-5.0) 02/03/18 12:58 Basophils % 0.0 % (0.0-2.0) 02/03/18 12:58 Neutrophils (Manual) 90 % (40-80) H 02/06/18 05:00 Lymphocytes 5 % (20-50) L 02/06/18 05:00 Monocytes 4 % (2-10) 02/06/18 05:00 Eosinophils 1 % (0-5) 02/06/18 05:00 Platelet Estimate ADEQUATE (NORMAL) 02/05/18 05:48 PT 12.5 SECONDS (9.5-11.5) H 02/04/18 05:50 INR 1.21 (0.5-1.4) 02/04/18 05:50 Sodium 126 mEq/L (136-145) L 02/06/18 05:00 Potassium 4.1 mEq/L (3.5-5.1) 02/06/18 05:00 Chloride 97 mEq/L (98-107) L 02/06/18 05:00 Carbon Dioxide 19.5 mEq/L (21.0-31.0) L 02/06/18 05:00 Anion Gap 13.6 (7.0-16.0) 02/06/18 05:00 BUN 12 mg/dL (7-25) 02/06/18 05:00 Creatinine 0.5 mg/dL (0.6-1.2) L 02/06/18 05:00 Est GFR ( Amer) TNP 02/06/18 05:00 Est GFR (Non-Af Amer) TNP 02/06/18 05:00 BUN/Creatinine Ratio 24.0 02/06/18 05:00 Glucose 154 mg/dL (70-105) H 02/06/18 05:00 Calcium 8.0 mg/dL (8.6-10.3) L 02/06/18 05:00 Phosphorus 2.0 mg/dL (2.5-5.0) L 02/03/18 12:58 Magnesium 2.1 mg/dL (1.9-2.7) 02/03/18 12:58 Total Bilirubin 0.5 mg/dL (0.3-1.0) 02/05/18 05:48 AST 19 U/L (13-39) 02/05/18 05:48 ALT 7 U/L (7-52) 02/05/18 05:48 Alkaline Phosphatase 142 U/L (34-104) H 02/05/18 05:48 Total Protein 5.9 gm/dL (6.0-8.3) L 02/05/18 05:48 Albumin 3.0 gm/dL (3.7-5.3) L 02/05/18 05:48 Globulin 2.9 gm/dL 02/05/18 05:48 Albumin/Globulin Ratio 1.0 (1.0-1.8) 02/05/18 05:48 Amylase 44 U/L (29-103) 02/03/18 12:58 Lipase 16 U/L (11-82) 02/03/18 12:58 Carcinoembryonic Ag 181.2 ng/mL (0.0-4.7) H 02/04/18 05:50 Urine Source RANDOM 02/04/18 04:30 Urine Color YELLOW 02/04/18 04:30 Urine Clarity SLIGHT CLOUDY (CLEAR) H 02/04/18 04:30 Urine pH 6.5 (4.6 - 8.0) 02/04/18 04:30 Ur Specific [place] 1.010 (1.005-1.030) 02/04/18 04:30 Urine Protein NEGATIVE mg/dL (NEGATIVE) 02/04/18 04:30 Urine Glucose (UA) NEGATIVE mg/dL (NEGATIVE) 02/04/18 04:30 Urine Ketones 15 mg/dL (NEGATIVE) H 02/04/18 04:30 Urine Blood TRACE (NEGATIVE) 02/04/18 04:30 Urine Nitrate NEGATIVE (NEGATIVE) 02/04/18 04:30 Urine Bilirubin NEGATIVE (NEGATIVE) 02/04/18 04:30 Urine Urobilinogen 0.2 E.U./dL (0.2 - 1.0) 02/04/18 04:30 Ur Leukocyte Esterase TRACE (NEGATIVE) H 02/04/18 04:30 Urine RBC 0-2 /hpf (0-5) 02/04/18 04:30 Urine WBC 2-5 /hpf (0-5) 02/04/18 04:30 Ur Epithelial Cells FEW /lpf (FEW) 02/04/18 04:30 Urine Bacteria FEW /hpf (NONE SEEN) 02/04/18 04:30 - Physical Exam Vitals and I&O: Vital Signs Temp 97.8 F 02/06/18 15:02 Pulse 98 02/06/18 15:02 Resp 17 02/06/18 15:02 BP 112/58 02/06/18 15:02 Pulse Ox 96 02/06/18 15:02 Intake & Output 02/05/18 02/06/18 02/06/18 18:59 06:59 18:59 Intake Total 910 1100 Output Total 200 Balance 910 900 Weight (lbs) 59.874 kg Intake: Intake, IV Amount 910 1000 D5-0.45NS 1,000 ml @ 75 910 1000 mls/hr IV .[id number] [facility] Rx #:[id number] Oral 100 Output: Stool 200 Other: Stool Characteristics Liquid Liquid Weight Source Bedscale Active Medications: Current Medications Acetaminophen (Tylenol) 650 mg PO Q6H PRN PRN Reason: Pain (Moderate) Stop: 04/04/18 16:58 Al Hydrox/Mg Hydrox/Simethicone (Maalox) 30 ml PO Q6H PRN PRN Reason: Upset Stomach / Indigestion Stop: 04/04/18 16:58 Ascorbic Acid (Vitamin C) 500 mg PO BID [facility] Stop: 04/04/18 16:59 Last Admin: 02/06/18 16:54 Dose: Not Given Calcium/Vitamin D (Oscal W/Vitamin D) 1 tab PO DAILY [facility] Stop: 04/05/18 08:59 Last Admin: 02/06/18 09:10 Dose: 1 tab Ferrous Sulfate (Iron) 325 mg PO BID [facility] Stop: 04/04/18 16:59 Last Admin: 02/06/18 16:54 Dose: Not Given Dextrose/Sodium Chloride (D5-0.45ns) 1,000 mls @ 75 mls/hr IV .[id number] [facility] Stop: 04/04/18 14:44 Last Admin: 02/06/18 06:24 Dose: 75 mls/hr Megestrol Acetate (Megace) 400 mg PO DAILY [facility] Stop: 04/04/18 17:59 Last Admin: 02/06/18 09:12 Dose: 400 mg Nystatin (Nystatin) 100,000 units PO TID [facility] Stop: 04/04/18 20:59 Last Admin: 02/06/18 13:40 Dose: 100,000 units Pantoprazole Sodium (Protonix) 40 mg IVP BID [facility] Stop: 04/06/18 16:59 Last Admin: 02/06/18 16:54 Dose: 40 mg Prochlorperazine Maleate (Compazine) 10 mg PO Q6H PRN; Protocol PRN Reason: NAUSEA/VOMITING Stop: 04/04/18 16:58 General: Alert, No acute distress, Other (DEHYDRATED CACHECTIC) HEENT: Atraumatic Neck: Supple, JVD Cardiovascular: Regular rate Lungs: Clear to auscultation Abdomen: Soft, Other (Colostomy bag) - Procedures Procedures: Procedures Procedure Code Date FLUOROSCOPY OF SUP VENA CAVA USING L OSM CONTRAST, GUIDANCE [id number] 12/11/16 INSERTION OF INFUSION DEV INTO SUP VENA CAVA, PERC APPROACH [id number] 12/11/16 REMOVAL OF INFUSION DEVICE FROM UPPER VEIN, OPEN APPROACH [id number] 12/11/16 REMOVAL OF TIVAD FROM TRUNK SUBCU/FASCIA, OPEN APPROACH [id number] 09/25/17 REMOVAL TUNNELED CV CATH [id number] 09/25/17 REMOVAL TUNNELED CV CATH [id number] 12/11/16 Assessment/Plan - Problem List Patient Problems: All Active Problems Failure to thrive (Acute) [id number] H/O colectomy (Acute) Z90.49 HTN (hypertension) (Acute) I10 Leukocytosis (Acute) D72.829 Malnutrition (Acute) E46 S/P colostomy (Acute) Z93.3 UTI (urinary tract infection) (Acute) - Assessment Assessment: Dysphagia - Plan Plan: 1.Dysphagia S/P EGD with biopsy and dilation Cont PPI Await pathology
[2018-02-07] MEDS: D5-0.45NS 1,000 ML IV SCH ×2 (01:36→13:23)
--- NOTE | 2018-02-07 10:00 | General Progress Note ---
Subjective - Review of Systems Service Date: 02/07/18 Objective - Results Result Diagrams: 02/06/18 05:00 02/06/18 05:00 Recent Labs: Laboratory Last Values WBC 13.9 Th/cmm (4.8-10.8) H D 02/06/18 05:00 RBC 4.01 Mil/cmm (3.80-5.20) 02/06/18 05:00 Hgb 11.4 gm/dL (12-16) L 02/06/18 05:00 Hct 34.4 % (41.0-60) L 02/06/18 05:00 MCV 85.7 fl (81-100) 02/06/18 05:00 MCH 28.5 pg (27.0-31.0) 02/06/18 05:00 MCHC Differential 33.2 pg (28.0-36.0) 02/06/18 05:00 RDW 15.7 % (11.5-20.0) 02/06/18 05:00 Plt Count 263 Th/cmm (150-400) 02/06/18 05:00 MPV 6.9 fl 02/06/18 05:00 Add Manual Diff YES 02/06/18 05:00 Neutrophils % 89.7 % (40.0-80.0) H 02/03/18 12:58 Band Neutrophils % 0 % (0-10) 02/06/18 05:00 Lymphocytes % 7.0 % (20.0-50.0) L 02/03/18 12:58 Monocytes % 2.7 % (2.0-10.0) 02/03/18 12:58 Eosinophils % 0.6 % (0.0-5.0) 02/03/18 12:58 Basophils % 0.0 % (0.0-2.0) 02/03/18 12:58 Neutrophils (Manual) 90 % (40-80) H 02/06/18 05:00 Lymphocytes 5 % (20-50) L 02/06/18 05:00 Monocytes 4 % (2-10) 02/06/18 05:00 Eosinophils 1 % (0-5) 02/06/18 05:00 Platelet Estimate ADEQUATE (NORMAL) 02/05/18 05:48 PT 12.5 SECONDS (9.5-11.5) H 02/04/18 05:50 INR 1.21 (0.5-1.4) 02/04/18 05:50 Sodium 126 mEq/L (136-145) L 02/06/18 05:00 Potassium 4.1 mEq/L (3.5-5.1) 02/06/18 05:00 Chloride 97 mEq/L (98-107) L 02/06/18 05:00 Carbon Dioxide 19.5 mEq/L (21.0-31.0) L 02/06/18 05:00 Anion Gap 13.6 (7.0-16.0) 02/06/18 05:00 BUN 12 mg/dL (7-25) 02/06/18 05:00 Creatinine 0.5 mg/dL (0.6-1.2) L 02/06/18 05:00 Est GFR ( Amer) TNP 02/06/18 05:00 Est GFR (Non-Af Amer) TNP 02/06/18 05:00 BUN/Creatinine Ratio 24.0 02/06/18 05:00 Glucose 154 mg/dL (70-105) H 02/06/18 05:00 Calcium 8.0 mg/dL (8.6-10.3) L 02/06/18 05:00 Phosphorus 2.0 mg/dL (2.5-5.0) L 02/03/18 12:58 Magnesium 2.1 mg/dL (1.9-2.7) 02/03/18 12:58 Total Bilirubin 0.5 mg/dL (0.3-1.0) 02/05/18 05:48 AST 19 U/L (13-39) 02/05/18 05:48 ALT 7 U/L (7-52) 02/05/18 05:48 Alkaline Phosphatase 142 U/L (34-104) H 02/05/18 05:48 Total Protein 5.9 gm/dL (6.0-8.3) L 02/05/18 05:48 Albumin 3.0 gm/dL (3.7-5.3) L 02/05/18 05:48 Globulin 2.9 gm/dL 02/05/18 05:48 Albumin/Globulin Ratio 1.0 (1.0-1.8) 02/05/18 05:48 Amylase 44 U/L (29-103) 02/03/18 12:58 Lipase 16 U/L (11-82) 02/03/18 12:58 Carcinoembryonic Ag 181.2 ng/mL (0.0-4.7) H 02/04/18 05:50 Urine Source RANDOM 02/04/18 04:30 Urine Color YELLOW 02/04/18 04:30 Urine Clarity SLIGHT CLOUDY (CLEAR) H 02/04/18 04:30 Urine pH 6.5 (4.6 - 8.0) 02/04/18 04:30 Ur Specific [place] 1.010 (1.005-1.030) 02/04/18 04:30 Urine Protein NEGATIVE mg/dL (NEGATIVE) 02/04/18 04:30 Urine Glucose (UA) NEGATIVE mg/dL (NEGATIVE) 02/04/18 04:30 Urine Ketones 15 mg/dL (NEGATIVE) H 02/04/18 04:30 Urine Blood TRACE (NEGATIVE) 02/04/18 04:30 Urine Nitrate NEGATIVE (NEGATIVE) 02/04/18 04:30 Urine Bilirubin NEGATIVE (NEGATIVE) 02/04/18 04:30 Urine Urobilinogen 0.2 E.U./dL (0.2 - 1.0) 02/04/18 04:30 Ur Leukocyte Esterase TRACE (NEGATIVE) H 02/04/18 04:30 Urine RBC 0-2 /hpf (0-5) 02/04/18 04:30 Urine WBC 2-5 /hpf (0-5) 02/04/18 04:30 Ur Epithelial Cells FEW /lpf (FEW) 02/04/18 04:30 Urine Bacteria FEW /hpf (NONE SEEN) 02/04/18 04:30 - Physical Exam Vitals and I&O: Vital Signs Temp 96.9 F 02/07/18 08:52 Pulse 97 02/07/18 08:52 Resp 17 02/07/18 08:52 BP 98/50 02/07/18 08:52 Pulse Ox 98 02/07/18 08:52 Intake & Output 02/06/18 02/07/18 02/07/18 18:59 06:59 18:59 Intake Total 1838.75 211.25 Balance 1838.75 211.25 Weight (lbs) 59.874 kg 64.609 kg Intake: Intake, IV Amount 938.75 61.25 D5-0.45NS 1,000 ml @ 75 938.75 61.25 mls/hr IV .[id number] [facility] Rx #:[id number] Oral 900 150 Other: # Voids 3 2 # Bowel Movements 1 1 Stool Characteristics Liquid Weight Source Bedscale Bedscale Active Medications: Current Medications Acetaminophen (Tylenol) 650 mg PO Q6H PRN PRN Reason: Pain (Moderate) Stop: 04/04/18 16:58 Al Hydrox/Mg Hydrox/Simethicone (Maalox) 30 ml PO Q6H PRN PRN Reason: Upset Stomach / Indigestion Stop: 04/04/18 16:58 Ascorbic Acid (Vitamin C) 500 mg PO BID [facility] Stop: 04/04/18 16:59 Last Admin: 02/06/18 16:54 Dose: Not Given Calcium/Vitamin D (Oscal W/Vitamin D) 1 tab PO DAILY [facility] Stop: 04/05/18 08:59 Last Admin: 02/06/18 09:10 Dose: 1 tab Ferrous Sulfate (Iron) 325 mg PO BID [facility] Stop: 04/04/18 16:59 Last Admin: 02/06/18 16:54 Dose: Not Given Dextrose/Sodium Chloride (D5-0.45ns) 1,000 mls @ 75 mls/hr IV .[id number] [facility] Stop: 04/04/18 14:44 Last Admin: 02/07/18 01:36 Dose: 75 mls/hr Megestrol Acetate (Megace) 400 mg PO DAILY [facility] Stop: 04/04/18 17:59 Last Admin: 02/06/18 09:12 Dose: 400 mg Nystatin (Nystatin) 100,000 units PO TID [facility] Stop: 04/04/18 20:59 Last Admin: 02/06/18 21:18 Dose: 100,000 units Pantoprazole Sodium (Protonix) 40 mg IVP BID [facility] Stop: 04/06/18 16:59 Last Admin: 02/06/18 16:54 Dose: 40 mg Prochlorperazine Maleate (Compazine) 10 mg PO Q6H PRN; Protocol PRN Reason: NAUSEA/VOMITING Stop: 04/04/18 16:58 General: Alert, No acute distress, Other (DEHYDRATED CACHECTIC) HEENT: Atraumatic Neck: Supple, JVD Cardiovascular: Regular rate Lungs: Clear to auscultation Abdomen: Soft, Other (Colostomy bag) - Procedures Procedures: Procedures Procedure Code Date FLUOROSCOPY OF SUP VENA CAVA USING L OSM CONTRAST, GUIDANCE [id number] 12/11/16 INSERTION OF INFUSION DEV INTO SUP VENA CAVA, PERC APPROACH [id number] 12/11/16 REMOVAL OF INFUSION DEVICE FROM UPPER VEIN, OPEN APPROACH [id number] 12/11/16 REMOVAL OF TIVAD FROM TRUNK SUBCU/FASCIA, OPEN APPROACH [id number] 09/25/17 REMOVAL TUNNELED CV CATH [id number] 09/25/17 REMOVAL TUNNELED CV CATH [id number] 12/11/16 Assessment/Plan - Problem List Patient Problems: All Active Problems Failure to thrive (Acute) [id number] H/O colectomy (Acute) Z90.49 HTN (hypertension) (Acute) I10 Leukocytosis (Acute) D72.829 Malnutrition (Acute) E46 S/P colostomy (Acute) Z93.3 UTI (urinary tract infection) (Acute) - Assessment Assessment: * Metastatic colon cancer to liver and retroperitonium with elevated CEA * Poor functional status and failure to thrive * Left hydronephrosis, sever; will need stent placement Not chemo candidate, supportive care Nutritional Asmnt/Malnutr-PDOC - Dietary Evaluation Malnutrition Findings (Please click <Entered> for more info): Nutritional Asmnt/Malnutrition Start: 02/04/18 17: 47 Text: Status: Active Freq: Protocol: Document 02/04/18 17:47 [email or web address] (Rec: 02/04/18 18:05 [email or web address]) Nutritional Asmnt/Malnutrition Patient General Information Nutritional Screening High Risk Diagnosis dehydration, failure to thrive Pertinent Medical Hx/Surgical Hx HTN, dyslipidemia, colon CA, colostomy Subjective Information Pt seen lying in bed at time of visit, awake and alert. Per H&P, pt admitted for poor intake and wt loss of 7 lb in one last month. Pt reported good appetite and want solid food rather than liquid food. Explained clear liquid diet for pt and pt verbalized understood. Per nurse note, pt has EGD and swallow eval scheduled tommorror 02/05. Current Diet Order/ Nutrition Support clear liquid Pertinent Medications vit C, oscal w/vit D, D5-0. 45ns, iron, megace Pertinent Labs 02/04 Na 127, Cl 91, Cr 0.4, glucose 143 02/03 Na 128, Cl 92, Cr 0.5, phos 2.0, alb 3.5 Nutritional Hx/Data Height 1.63 m Height (Calculated Centimeters) 162.6 Current Weight (lbs) 42.638 kg Weight (Calculated Kilograms) 42.6 Weight (Calculated Grams) 33577.7 [place] Body Weight 120 Body Mass Index (BMI) 16.1 Weight Status Underweight GI Symptoms GI Symptoms None Difficult in: None Usual diet at home pt stated she was on pureed diet d/t no teeth Skin Integrity/Comment: rash to bilateral toes and stoma site pressure area to coccyx robyn 12 Estimated Nutritional Goals BEE in Kcals: Using Current wt Calories/Kcals/Kg 30-35 Kcals Calculated 7607-0333 Protein: Using Current wt Protein g/k.2-1.4 Protein Calculated 52-60 Fluid: ml 1290-1505ml (1ml/1kcal) Nutritional Problem 1. Problem Problem underweight Etiology poor intake per H&P Signs/Symptoms: BMI 16 and recent wt loss of 7lb Malnutrition Alert Is there a minimum of two criteria No selected? Query Text:Check all the applicable criteria. A minimum of two criteria are recommended for diagnosis of either severe or non-severe malnutrition. Intervention/Recommendation Comments 1. Add Ensure clear to current clear liquid diet for extra kcal/protein per protocol. Recommend regular diet and texture per SPL. Add supplement if PO intake low oce diet advanced. 2. Monitor PO intake, wt, labs and skin integrity 3. F/U as high risk in 2-3 days, 02/06-02/07 Expected Outcomes/Goals Expected Outcomes/Goals 1. PO intake to meet at least 75% of nutritional needs. 2. Wt stability, skin to remain intact, labs to approach WNL.
[2018-02-07] MEDS: Multivitamin w/ Minerals Tab PO SCH (10:28)
[2018-02-07] MEDS: Ferrous Sulfate 325 MG TAB PO SCH ×2 (10:28→21:31)
[2018-02-07] MEDS: Calcium Carb/Vit D 500 mg/200 U Tab PO SCH (10:28)
--- NOTE | 2018-02-07 11:22 | Pathology Report ---
[id number] Collection date: 02/04/2018 Surgeon: Dr. Bette Brock Specimen Description: Esophageal ulcer biopsy. Gross Description: Received in formalin are five carvajal soft tissue fragments ranging from 0.1 to 0.2 cm in greatest dimension. Totally submitted in one cassette. Microscopic Description: The histologic sections show ulcerated esophageal mucosa consisting of squamous as well as glandular epithelium. There is extensive acute and chronic inflammation present consisting of mostly neutrophils admixed with smaller numbers of lymphocytes and plasma cells. Focal areas show reactive epithelial changes including [id number] squamous atypia seen in an area of ulceration. No evidence for malignancy is appreciated. The PAS stain shows no evidence for fungal organisms. The Alcian blue stain shows no significant abnormalities. Diagnosis: Ulcerated esophageal mucosa showing extensive acute and chronic inflammation and associated reactive epithelial atypia (esophageal ulcer biopsy). Comment: There is no evidence for malignancy. The atypia in this biopsy is seen in association with extensive ulceration, and is consistent with a reactive / inflammatory atypia. Clinical correlation and follow up is recommended to determine if further studies are warranted. If there is a persistent nonhealing ulcer or mass lesion , a repeat biopsy would be advisable. These findings are discussed with Dr. Bette Brock on 2017. [facility]# [id number] [facility]
--- NOTE | 2018-02-07 14:35 | Internal Medicine Prog Note ---
Internal Medicine Subjective - Subjective Patient is:: awake, verbal, in bed, other (improving ) Per staff patient has:: tolerating meds Internal Medicine Objective - Results Result Diagrams: 02/06/18 05:00 02/06/18 05:00 Recent Labs: Laboratory Last Values WBC 13.9 Th/cmm (4.8-10.8) H D 02/06/18 05:00 RBC 4.01 Mil/cmm (3.80-5.20) 02/06/18 05:00 Hgb 11.4 gm/dL (12-16) L 02/06/18 05:00 Hct 34.4 % (41.0-60) L 02/06/18 05:00 MCV 85.7 fl (81-100) 02/06/18 05:00 MCH 28.5 pg (27.0-31.0) 02/06/18 05:00 MCHC Differential 33.2 pg (28.0-36.0) 02/06/18 05:00 RDW 15.7 % (11.5-20.0) 02/06/18 05:00 Plt Count 263 Th/cmm (150-400) 02/06/18 05:00 MPV 6.9 fl 02/06/18 05:00 Add Manual Diff YES 02/06/18 05:00 Neutrophils % 89.7 % (40.0-80.0) H 02/03/18 12:58 Band Neutrophils % 0 % (0-10) 02/06/18 05:00 Lymphocytes % 7.0 % (20.0-50.0) L 02/03/18 12:58 Monocytes % 2.7 % (2.0-10.0) 02/03/18 12:58 Eosinophils % 0.6 % (0.0-5.0) 02/03/18 12:58 Basophils % 0.0 % (0.0-2.0) 02/03/18 12:58 Neutrophils (Manual) 90 % (40-80) H 02/06/18 05:00 Lymphocytes 5 % (20-50) L 02/06/18 05:00 Monocytes 4 % (2-10) 02/06/18 05:00 Eosinophils 1 % (0-5) 02/06/18 05:00 Platelet Estimate ADEQUATE (NORMAL) 02/05/18 05:48 PT 12.5 SECONDS (9.5-11.5) H 02/04/18 05:50 INR 1.21 (0.5-1.4) 02/04/18 05:50 Sodium 126 mEq/L (136-145) L 02/06/18 05:00 Potassium 4.1 mEq/L (3.5-5.1) 02/06/18 05:00 Chloride 97 mEq/L (98-107) L 02/06/18 05:00 Carbon Dioxide 19.5 mEq/L (21.0-31.0) L 02/06/18 05:00 Anion Gap 13.6 (7.0-16.0) 02/06/18 05:00 BUN 12 mg/dL (7-25) 02/06/18 05:00 Creatinine 0.5 mg/dL (0.6-1.2) L 02/06/18 05:00 Est GFR ( Amer) TNP 02/06/18 05:00 Est GFR (Non-Af Amer) TNP 02/06/18 05:00 BUN/Creatinine Ratio 24.0 02/06/18 05:00 Glucose 154 mg/dL (70-105) H 02/06/18 05:00 Calcium 8.0 mg/dL (8.6-10.3) L 02/06/18 05:00 Phosphorus 2.0 mg/dL (2.5-5.0) L 02/03/18 12:58 Magnesium 2.1 mg/dL (1.9-2.7) 02/03/18 12:58 Total Bilirubin 0.5 mg/dL (0.3-1.0) 02/05/18 05:48 AST 19 U/L (13-39) 02/05/18 05:48 ALT 7 U/L (7-52) 02/05/18 05:48 Alkaline Phosphatase 142 U/L (34-104) H 02/05/18 05:48 Total Protein 5.9 gm/dL (6.0-8.3) L 02/05/18 05:48 Albumin 3.0 gm/dL (3.7-5.3) L 02/05/18 05:48 Globulin 2.9 gm/dL 02/05/18 05:48 Albumin/Globulin Ratio 1.0 (1.0-1.8) 02/05/18 05:48 Amylase 44 U/L (29-103) 02/03/18 12:58 Lipase 16 U/L (11-82) 02/03/18 12:58 Carcinoembryonic Ag 181.2 ng/mL (0.0-4.7) H 02/04/18 05:50 Urine Source RANDOM 02/04/18 04:30 Urine Color YELLOW 02/04/18 04:30 Urine Clarity SLIGHT CLOUDY (CLEAR) H 02/04/18 04:30 Urine pH 6.5 (4.6 - 8.0) 02/04/18 04:30 Ur Specific [place] 1.010 (1.005-1.030) 02/04/18 04:30 Urine Protein NEGATIVE mg/dL (NEGATIVE) 02/04/18 04:30 Urine Glucose (UA) NEGATIVE mg/dL (NEGATIVE) 02/04/18 04:30 Urine Ketones 15 mg/dL (NEGATIVE) H 02/04/18 04:30 Urine Blood TRACE (NEGATIVE) 02/04/18 04:30 Urine Nitrate NEGATIVE (NEGATIVE) 02/04/18 04:30 Urine Bilirubin NEGATIVE (NEGATIVE) 02/04/18 04:30 Urine Urobilinogen 0.2 E.U./dL (0.2 - 1.0) 02/04/18 04:30 Ur Leukocyte Esterase TRACE (NEGATIVE) H 02/04/18 04:30 Urine RBC 0-2 /hpf (0-5) 02/04/18 04:30 Urine WBC 2-5 /hpf (0-5) 02/04/18 04:30 Ur Epithelial Cells FEW /lpf (FEW) 02/04/18 04:30 Urine Bacteria FEW /hpf (NONE SEEN) 02/04/18 04:30 - Physical Exam Vitals and I&O: Vital Signs Temp 97.1 F 02/07/18 12:06 Pulse 97 02/07/18 12:06 Resp 17 02/07/18 12:06 BP 101/56 02/07/18 12:06 Pulse Ox 98 02/07/18 12:06 Intake & Output 02/06/18 02/07/18 02/07/18 18:59 06:59 18:59 Intake Total 1838.75 211.25 886.25 Balance 1838.75 211.25 886.25 Weight (lbs) 59.874 kg 64.609 kg Intake: Intake, IV Amount 938.75 61.25 886.25 D5-0.45NS 1,000 ml @ 75 938.75 61.25 886.25 mls/hr IV .[id number] [facility] Rx #:[id number] Oral 900 150 Other: # Voids 3 2 # Bowel Movements 1 1 Stool Characteristics Liquid Weight Source Bedscale Bedscale Active Medications: Current Medications Acetaminophen (Tylenol) 650 mg PO Q6H PRN PRN Reason: Pain (Moderate) Stop: 04/04/18 16:58 Al Hydrox/Mg Hydrox/Simethicone (Maalox) 30 ml PO Q6H PRN PRN Reason: Upset Stomach / Indigestion Stop: 04/04/18 16:58 Ascorbic Acid (Vitamin C) 500 mg PO BID [facility] Stop: 04/04/18 16:59 Last Admin: 02/07/18 10:28 Dose: Not Given Calcium/Vitamin D (Oscal W/Vitamin D) 1 tab PO DAILY [facility] Stop: 04/05/18 08:59 Last Admin: 02/07/18 10:28 Dose: Not Given Ferrous Sulfate (Iron) 325 mg PO BID [facility] Stop: 04/04/18 16:59 Last Admin: 02/07/18 10:28 Dose: Not Given Dextrose/Sodium Chloride (D5-0.45ns) 1,000 mls @ 75 mls/hr IV .[id number] [facility] Stop: 04/04/18 14:44 Last Infusion: 02/07/18 13:25 Dose: 75 mls/hr Megestrol Acetate (Megace) 400 mg PO DAILY [facility] Stop: 04/04/18 17:59 Last Admin: 02/07/18 10:28 Dose: Not Given Nystatin (Nystatin) 100,000 units PO TID [facility] Stop: 04/04/18 20:59 Last Admin: 02/07/18 13:24 Dose: 100,000 units Pantoprazole Sodium (Protonix) 40 mg IVP BID [facility] Stop: 04/06/18 16:59 Last Admin: 02/07/18 10:27 Dose: 40 mg Prochlorperazine Maleate (Compazine) 10 mg PO Q6H PRN; Protocol PRN Reason: NAUSEA/VOMITING Stop: 04/04/18 16:58 General: alert HEENT: NC/AT, PERRLA Neck: Supple Lungs: CTAB Cardiovascular: RRR, Normal S1, Normal S2 Abdomen: soft, non-distended, positive bowel sound Extremities: excoriation Neurological: alert - Procedures Procedures: Procedures Procedure Code Date FLUOROSCOPY OF SUP VENA CAVA USING L OSM CONTRAST, GUIDANCE [id number] 12/11/16 INSERTION OF INFUSION DEV INTO SUP VENA CAVA, PERC APPROACH [id number] 12/11/16 REMOVAL OF INFUSION DEVICE FROM UPPER VEIN, OPEN APPROACH [id number] 12/11/16 REMOVAL OF TIVAD FROM TRUNK SUBCU/FASCIA, OPEN APPROACH [id number] 09/25/17 REMOVAL TUNNELED CV CATH [id number] 09/25/17 REMOVAL TUNNELED CV CATH [id number] 12/11/16 Internal Medicine Assmt/Plan - Assessment Assessment: failure to thrive h.o colectomy htn leukocytosis malnutirtion s/p colostomy uti - Plan Plan: as per gi will monitor Nutritional Asmnt/Malnutr-PDOC - Dietary Evaluation Malnutrition Findings (Please click <Entered> for more info): Nutritional Asmnt/Malnutrition Start: 02/04/18 17: 47 Text: Status: Active Freq: Protocol: Document 02/04/18 17:47 LCMAKG (Rec: 02/04/18 18:05 BLAINE [email or web address]) Nutritional Asmnt/Malnutrition Patient General Information Nutritional Screening High Risk Diagnosis dehydration, failure to thrive Pertinent Medical Hx/Surgical Hx HTN, dyslipidemia, colon CA, colostomy Subjective Information Pt seen lying in bed at time of visit, awake and alert. Per H&P, pt admitted for poor intake and wt loss of 7 lb in one last month. Pt reported good appetite and want solid food rather than liquid food. Explained clear liquid diet for pt and pt verbalized understood. Per nurse note, pt has EGD and swallow eval scheduled tommorror 02/05. Current Diet Order/ Nutrition Support clear liquid Pertinent Medications vit C, oscal w/vit D, D5-0. 45ns, iron, megace Pertinent Labs 02/04 Na 127, Cl 91, Cr 0.4, glucose 143 02/03 Na 128, Cl 92, Cr 0.5, phos 2.0, alb 3.5 Nutritional Hx/Data Height 1.63 m Height (Calculated Centimeters) 162.6 Current Weight (lbs) 42.638 kg Weight (Calculated Kilograms) 42.6 Weight (Calculated Grams) 05303.7 [place] Body Weight 120 Body Mass Index (BMI) 16.1 Weight Status Underweight GI Symptoms GI Symptoms None Difficult in: None Usual diet at home pt stated she was on pureed diet d/t no teeth Skin Integrity/Comment: rash to bilateral toes and stoma site pressure area to coccyx robyn 12 Estimated Nutritional Goals BEE in Kcals: Using Current wt Calories/Kcals/Kg 30-35 Kcals Calculated 3508-7893 Protein: Using Current wt Protein g/k.2-1.4 Protein Calculated 52-60 Fluid: ml 1290-1505ml (1ml/1kcal) Nutritional Problem 1. Problem Problem underweight Etiology poor intake per H&P Signs/Symptoms: BMI 16 and recent wt loss of 7lb Malnutrition Alert Is there a minimum of two criteria No selected? Query Text:Check all the applicable criteria. A minimum of two criteria are recommended for diagnosis of either severe or non-severe malnutrition. Intervention/Recommendation Comments 1. Add Ensure clear to current clear liquid diet for extra kcal/protein per protocol. Recommend regular diet and texture per SPL. Add supplement if PO intake low oce diet advanced. 2. Monitor PO intake, wt, labs and skin integrity 3. F/U as high risk in 2-3 days, 02/06-02/07 Expected Outcomes/Goals Expected Outcomes/Goals 1. PO intake to meet at least 75% of nutritional needs. 2. Wt stability, skin to remain intact, labs to approach WNL.
--- NOTE | 2018-02-07 18:09 | GI Progress Note ---
Subjective - Review of Systems Service Date: 02/07/18 Events since last encounter: No events Subjective: Swallowing is better Objective - Results Result Diagrams: 02/06/18 05:00 02/06/18 05:00 Recent Labs: Laboratory Last Values WBC 13.9 Th/cmm (4.8-10.8) H D 02/06/18 05:00 RBC 4.01 Mil/cmm (3.80-5.20) 02/06/18 05:00 Hgb 11.4 gm/dL (12-16) L 02/06/18 05:00 Hct 34.4 % (41.0-60) L 02/06/18 05:00 MCV 85.7 fl (81-100) 02/06/18 05:00 MCH 28.5 pg (27.0-31.0) 02/06/18 05:00 MCHC Differential 33.2 pg (28.0-36.0) 02/06/18 05:00 RDW 15.7 % (11.5-20.0) 02/06/18 05:00 Plt Count 263 Th/cmm (150-400) 02/06/18 05:00 MPV 6.9 fl 02/06/18 05:00 Add Manual Diff YES 02/06/18 05:00 Neutrophils % 89.7 % (40.0-80.0) H 02/03/18 12:58 Band Neutrophils % 0 % (0-10) 02/06/18 05:00 Lymphocytes % 7.0 % (20.0-50.0) L 02/03/18 12:58 Monocytes % 2.7 % (2.0-10.0) 02/03/18 12:58 Eosinophils % 0.6 % (0.0-5.0) 02/03/18 12:58 Basophils % 0.0 % (0.0-2.0) 02/03/18 12:58 Neutrophils (Manual) 90 % (40-80) H 02/06/18 05:00 Lymphocytes 5 % (20-50) L 02/06/18 05:00 Monocytes 4 % (2-10) 02/06/18 05:00 Eosinophils 1 % (0-5) 02/06/18 05:00 Platelet Estimate ADEQUATE (NORMAL) 02/05/18 05:48 PT 12.5 SECONDS (9.5-11.5) H 02/04/18 05:50 INR 1.21 (0.5-1.4) 02/04/18 05:50 Sodium 126 mEq/L (136-145) L 02/06/18 05:00 Potassium 4.1 mEq/L (3.5-5.1) 02/06/18 05:00 Chloride 97 mEq/L (98-107) L 02/06/18 05:00 Carbon Dioxide 19.5 mEq/L (21.0-31.0) L 02/06/18 05:00 Anion Gap 13.6 (7.0-16.0) 02/06/18 05:00 BUN 12 mg/dL (7-25) 02/06/18 05:00 Creatinine 0.5 mg/dL (0.6-1.2) L 02/06/18 05:00 Est GFR ( Amer) TNP 02/06/18 05:00 Est GFR (Non-Af Amer) TNP 02/06/18 05:00 BUN/Creatinine Ratio 24.0 02/06/18 05:00 Glucose 154 mg/dL (70-105) H 02/06/18 05:00 Calcium 8.0 mg/dL (8.6-10.3) L 02/06/18 05:00 Phosphorus 2.0 mg/dL (2.5-5.0) L 02/03/18 12:58 Magnesium 2.1 mg/dL (1.9-2.7) 02/03/18 12:58 Total Bilirubin 0.5 mg/dL (0.3-1.0) 02/05/18 05:48 AST 19 U/L (13-39) 02/05/18 05:48 ALT 7 U/L (7-52) 02/05/18 05:48 Alkaline Phosphatase 142 U/L (34-104) H 02/05/18 05:48 Total Protein 5.9 gm/dL (6.0-8.3) L 02/05/18 05:48 Albumin 3.0 gm/dL (3.7-5.3) L 02/05/18 05:48 Globulin 2.9 gm/dL 02/05/18 05:48 Albumin/Globulin Ratio 1.0 (1.0-1.8) 02/05/18 05:48 Amylase 44 U/L (29-103) 02/03/18 12:58 Lipase 16 U/L (11-82) 02/03/18 12:58 Carcinoembryonic Ag 181.2 ng/mL (0.0-4.7) H 02/04/18 05:50 Urine Source RANDOM 02/04/18 04:30 Urine Color YELLOW 02/04/18 04:30 Urine Clarity SLIGHT CLOUDY (CLEAR) H 02/04/18 04:30 Urine pH 6.5 (4.6 - 8.0) 02/04/18 04:30 Ur Specific [place] 1.010 (1.005-1.030) 02/04/18 04:30 Urine Protein NEGATIVE mg/dL (NEGATIVE) 02/04/18 04:30 Urine Glucose (UA) NEGATIVE mg/dL (NEGATIVE) 02/04/18 04:30 Urine Ketones 15 mg/dL (NEGATIVE) H 02/04/18 04:30 Urine Blood TRACE (NEGATIVE) 02/04/18 04:30 Urine Nitrate NEGATIVE (NEGATIVE) 02/04/18 04:30 Urine Bilirubin NEGATIVE (NEGATIVE) 02/04/18 04:30 Urine Urobilinogen 0.2 E.U./dL (0.2 - 1.0) 02/04/18 04:30 Ur Leukocyte Esterase TRACE (NEGATIVE) H 02/04/18 04:30 Urine RBC 0-2 /hpf (0-5) 02/04/18 04:30 Urine WBC 2-5 /hpf (0-5) 02/04/18 04:30 Ur Epithelial Cells FEW /lpf (FEW) 02/04/18 04:30 Urine Bacteria FEW /hpf (NONE SEEN) 02/04/18 04:30 - Physical Exam Vitals and I&O: Vital Signs Temp 97.1 F 02/07/18 12:06 Pulse 97 02/07/18 12:06 Resp 17 02/07/18 12:06 BP 101/56 02/07/18 12:06 Pulse Ox 98 02/07/18 12:06 Intake & Output 02/06/18 02/07/18 02/07/18 18:59 06:59 18:59 Intake Total 1838.75 211.25 886.25 Balance 1838.75 211.25 886.25 Weight (lbs) 59.874 kg 64.609 kg Intake: Intake, IV Amount 938.75 61.25 886.25 D5-0.45NS 1,000 ml @ 75 938.75 61.25 886.25 mls/hr IV .[id number] [facility]S INCLUDE 234 BEDS AT THE [facility] Rx #:[id number] Oral 900 150 Other: # Voids 3 2 # Bowel Movements 1 1 Stool Characteristics Liquid Weight Source Bedscale Bedscale Active Medications: Current Medications Acetaminophen (Tylenol) 650 mg PO Q6H PRN PRN Reason: Pain (Moderate) Stop: 04/04/18 16:58 Al Hydrox/Mg Hydrox/Simethicone (Maalox) 30 ml PO Q6H PRN PRN Reason: Upset Stomach / Indigestion Stop: 04/04/18 16:58 Ascorbic Acid (Vitamin C) 500 mg PO BID [facility] 234 BEDS AT THE [facility] Stop: 04/04/18 16:59 Last Admin: 02/07/18 10:28 Dose: Not Given Calcium/Vitamin D (Oscal W/Vitamin D) 1 tab PO DAILY [facility]CLUDE 234 BEDS AT THE [facility] Stop: 04/05/18 08:59 Last Admin: 02/07/18 10:28 Dose: Not Given Ferrous Sulfate (Iron) 325 mg PO BID [facility]CLUDE 234 BEDS AT THE [facility] Stop: 04/04/18 16:59 Last Admin: 02/07/18 10:28 Dose: Not Given Dextrose/Sodium Chloride (D5-0.45ns) 1,000 mls @ 75 mls/hr IV .[id number] [facility]S INCLUDE 234 BEDS AT THE [facility] Stop: 04/04/18 14:44 Last Infusion: 02/07/18 13:25 Dose: 75 mls/hr Megestrol Acetate (Megace) 400 mg PO DAILY [facility]CLUDE 234 BEDS AT THE [facility] Stop: 04/04/18 17:59 Last Admin: 02/07/18 10:28 Dose: Not Given Nystatin (Nystatin) 100,000 units PO TID [facility]CLUDE 234 BEDS AT THE [facility] Stop: 04/04/18 20:59 Last Admin: 02/07/18 13:24 Dose: 100,000 units Pantoprazole Sodium (Protonix) 40 mg IVP BID [facility]CLUDE 234 BEDS AT THE [facility] Stop: 04/06/18 16:59 Last Admin: 02/07/18 17:38 Dose: 40 mg Prochlorperazine Maleate (Compazine) 10 mg PO Q6H PRN; Protocol PRN Reason: NAUSEA/VOMITING Stop: 04/04/18 16:58 General: Alert, No acute distress, Other (DEHYDRATED CACHECTIC) HEENT: Atraumatic Neck: Supple, JVD Cardiovascular: Regular rate Lungs: Clear to auscultation Abdomen: Bowel sounds (normal), Soft, Other (Colostomy bag) - Procedures Procedures: Procedures Procedure Code Date FLUOROSCOPY OF SUP VENA CAVA USING L OSM CONTRAST, GUIDANCE [id number] 12/11/16 INSERTION OF INFUSION DEV INTO SUP VENA CAVA, PERC APPROACH [id number] 12/11/16 REMOVAL OF INFUSION DEVICE FROM UPPER VEIN, OPEN APPROACH [id number] 12/11/16 REMOVAL OF TIVAD FROM TRUNK SUBCU/FASCIA, OPEN APPROACH [id number] 09/25/17 REMOVAL TUNNELED CV CATH [id number] 09/25/17 REMOVAL TUNNELED CV CATH [id number] 12/11/16 Assessment/Plan - Problem List Patient Problems: All Active Problems Failure to thrive (Acute) [id number] H/O colectomy (Acute) Z90.49 HTN (hypertension) (Acute) I10 Leukocytosis (Acute) D72.829 Malnutrition (Acute) E46 S/P colostomy (Acute) Z93.3 UTI (urinary tract infection) (Acute) - Assessment Assessment: Dysphagia - Plan Plan: 1.Dysphagia S/P EGD with biopsy and dilation Cont PPI Await pathology 2. Elevated CEA will need further w/u such as colonoscopy especially if biopies of esophagus is negative
--- NOTE | 2018-02-11 09:12 | Discharge Summary ---
DATE OF DISCHARGE: 02/07/2018 HISTORY AND HOSPITAL COURSE: The patient is an 82-year-old female patient who was admitted on 02/03/2018 and was discharged on 02/07/2018, back to [facility]. This patient is very well known to me. The patient is known to have history of colon CA with a lot of chemotherapy, radiation, etc., etc. She is a resident of [facility], was complaining of severe loss of appetite and has lost a lot of weight, has failure to thrive, was brought to the Emergency Room and through the Emergency Room she was admitted. The patient was able to eat a little bit and the patient had UTI, which was treated with antibiotic. Dr. Bello saw the patient and Dr. Yung saw the patient and we decided the patient should be in the palliative care and the patient was sent back to the [facility] with final diagnoses of UTI resolving, significant weight loss, near terminal condition, and history of cancer of the colon with metastasis. [facility]# [id number]
== END 2018-02-07 22:35 | DRG 241 ==
LOC: ER 12:45 → MSI 16:10
PROVIDERS: ADMIT Internal Medicine; ATTEND Internal Medicine
PROC: 0DB58ZX Excision of Esophagus, Via Natural or Artificial Opening Endoscopic, Diagnostic (ICD-10-PCS; principal; 2018-02-05)
PROC: 0DB68ZX Excision of Stomach, Via Natural or Artificial Opening Endoscopic, Diagnostic (ICD-10-PCS; 2018-02-05)
PROC: 0D758ZZ Dilation of Esophagus, Via Natural or Artificial Opening Endoscopic (ICD-10-PCS; 2018-02-05)
DX: K29.00 Acute gastritis without bleeding (principal); E43 Unspecified severe protein-calorie malnutrition; G93.40 Encephalopathy, unspecified; C78.7 Secondary malignant neoplasm of liver and intrahepatic bile duct; C78.6 Secondary malignant neoplasm of retroperitoneum and peritoneum; R53.2 Functional quadriplegia; B37.0 Candidal stomatitis; E86.0 Dehydration; K26.9 Duodenal ulcer, unspecified as acute or chronic, without hemorrhage or perforation; E87.1 Hypo-osmolality and hyponatremia; K22.10 Ulcer of esophagus without bleeding; N13.30 Unspecified hydronephrosis; R13.10 Dysphagia, unspecified; C18.9 Malignant neoplasm of colon, unspecified; R62.7 Adult failure to thrive; I10 Essential (primary) hypertension; M19.90 Unspecified osteoarthritis, unspecified site; E78.5 Hyperlipidemia, unspecified; Z85.038 Personal history of other malignant neoplasm of large intestine; Z93.3 Colostomy status; Z68.24 Body mass index [BMI] 24.0-24.9, adult
CPT/HCPCS: 36415-UA; 71045-TC; 80048-TC; 80053-TC; 81001-TC; 82150-TC; 82378-90; 83690-TC; 83735-TC; 84100-TC; 85007-TC; 85025-TC; 85610-TC; 87086-90; 87338-TC; 96374; C9113; J7121; Q9967; X3401; X6026; Z7506; Z7512; Z7610